=== PATIENT | male | born 1970 | race Caucasian/White ===

== ENCOUNTER 2016-11-29 12:08 | Day surgery (SDC) | payer OTHER ==
[2016-11-22 11:32] VITALS: BMI 42.0
--- NOTE | 2016-11-28 16:33 | HISTORY & PHYSICAL EXAMINATION ---
DATE OF ADMISSION: 11/29/2016 CHIEF COMPLAINT: Right quadriceps tendon rupture. 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 He walked down some stairs on 11/12/2016 when he missed the last step and he felt a huge pop in his right knee. MRI of his knee did show a very high grade partial quadriceps tendon rupture. After failing a brief of conservative treatment, we have elected to proceed with operative fixation. PAST MEDICAL HISTORY: Significant for hypertension, hyperlipidemia, heart palpitations, sleep apnea for which he takes a CPAP machine, seizures, diabetes and obesity. PAST SURGICAL HISTORY: Significant for L5-S1 laminectomy, oral surgeries to his teeth. ALLERGIES: None. MEDICATIONS: Include gabapentin 300 mg daily, vitamin D3 1000 mg daily, methimazole 10 mg daily, metformin 1000 mg twice a day, metoprolol 0 5 mg twice a day, Zoloft 25 mg daily, and simvastatin 20 mg daily. FAMILY HISTORY: Noncontributory. SOCIAL HISTORY: He denies any tobacco, alcohol or IV drug use. He tries to remain active. REVIEW OF SYSTEMS: He complains of right quadrant pain. All other pertinent review of systems is negative. PHYSICAL EXAMINATION: GENERAL: He is awake, alert and oriented x3. He is in no apparent distress. He is very pleasant. HEENT: Pupils equal, round and reactive to light. Extraocular motion intact. Oral mucosa is pink and moist. VITAL SIGNS: Regular rate per radial pulse. LUNGS: Rocio symmetrically bilaterally with no audible breath sounds. ABDOMEN: Soft, nontender, nondistended. MUSCULOSKELETAL: On physical examination of his knee, there are no abrasions, lesions, lacerations of the skin. He is able to stand but he has difficulty sitting. He has difficulty doing any flexion of his knee and a lot of pain right at the distal aspect of the quad tendon. He has weakness with straight leg raise. IMAGING DATA: MRI of the right knee does show a very high grade partial thickness tearing of the right quad. IMPRESSION: Right quadriceps tendon rupture. PLAN: We will proceed with operative fixation of the quad tendon. Postoperatively, he will be placed in a [place] brace and discharged to home on oral pain medications. [facility]
[~2016-11-29] VITALS: Ht 193 cm; Wt 154.5 kg
[~2016-11-29 12:08] MED LIST: ACETAMINOPHEN 500 MG TAB PO SCH; ASPI325T39 PO; CHOL1000 PO; FAMOTIDINE 20 MG TAB PO SCH; GABAPENTIN 300 MG CAP PO SCH; METF-384 PO; METH10TA6 PO; METO50TA16 PO; SERT25TA PO; SIMV20TA5 PO
--- NOTE | 2016-11-29 12:42 | History & Physical Bridge Note ---
H&P Re-Evaluation Bridge Note: I have examined the patient, reviewed the History & Physical and in the interval since the performance of the History & Physical I have noted the following changes of clinical significance: No changes noted
[2016-11-29 12:57] VITALS: BP 134/97; PULSE 62; TEMP 36.5; O2SAT 95; Ht 193 cm; Wt 154.5 kg
[2016-11-29] MEDS ORDERED: LACTATED RINGER'S 1000ML IV SCH (13:45)
[2016-11-29] MEDS ORDERED: CEFAZOLIN 3000 MG/65 ML D5W 65 ML IV SCH (13:45)
[2016-11-29] MEDS ORDERED: ONDANSETRON INJ 2 MG/ML 2 ML VIAL ONE ×2 (13:49→17:00)
[2016-11-29] MEDS ORDERED: LIDOCAINE HCL 2% 2 ML VIAL (20MG/ML) ONE ×2 (13:49→14:43)
[2016-11-29] MEDS ORDERED: FENTANYL CITRATE INJ 50 MCG/1 ML 2 ML VIAL ONE ×2 (13:49→14:44)
[2016-11-29] MEDS ORDERED: MIDAZOLAM HCL 1 MG/ML 2ML VIAL ONE ×3 (13:49→14:35)
[2016-11-29] MEDS ORDERED: DEXAMETHASONE SOD INJ 4 MG/ML VIAL ONE (13:49)
[2016-11-29] MEDS ORDERED: PROPOFOL IV EMULSION 10 MG/ML 20 ML VIAL IV ONE ×2 (13:49→14:43)
[2016-11-29] MEDS ORDERED: LACTATED RINGER'S 1000ML 1,000 ML IV PRN (14:11)
[2016-11-29] MEDS ORDERED: ONDANSETRON INJ 2 MG/ML 2 ML VIAL IV PRN ×2 (14:15→17:15)
[2016-11-29] MEDS ORDERED: FENTANYL CITRATE INJ 50 MCG/1 ML 2 ML VIAL IV PRN (14:15)
[2016-11-29] MEDS ORDERED: ROCURONIUM BROMIDE 10 MG/ML 5 ML VIAL ONE ×2 (14:44→17:00)
[2016-11-29] MEDS ORDERED: BACITRACIN 50,000 UNITS IR ONE (16:41)
[2016-11-29] MEDS ORDERED: NEOSTIGMINE METHYLSULFATE 5 MG/5 ML SYR ONE (17:00)
[2016-11-29] MEDS ORDERED: GLYCOPYRROLATE INJ 0.2 MG/ML VIAL ONE (17:00)
--- NOTE | 2016-11-29 17:05 | [facility] Post Operative Brief Note ---
Immediate Operative Summary Operative Date Nov 29, 2016. Pre-Operative Diagnosis Right Quadricep Tendon Rupture Post-Operative Diagnosis Right Quadricep Tendon Rupture Procedure(s) Performed Right Quadriceps Repair Surgeon Dr. Bloom [employer] Records Clerk Surgeon(s) Herberth Menezes PA-C Estimated Blood Loss 5 mL Findings as above Specimens None Complication(s) None Disposition Recovery Room / PACU
[2016-11-29] MEDS ORDERED: OXYC-57 PO (17:11)
[2016-11-29] MEDS ORDERED: SODIUM CHLORIDE 0.9% 1000ML 1,000 ML IV SCH (17:14)
--- NOTE | 2016-11-29 17:14 | Discharge Instructions ---
Discharge Instructions Admission Reason for Admission: Discharge Discharge Diagnosis / Problem: SAME ABOVE Discharge Goals Goal(s): Decrease discomfort, Improve function Activity Recommendations Activity Limitations: as noted below Exercise/Sports Limitations: until after follow-up appointment May Resume Sexual Activity: after follow-up appointment Shower/Bathe: may shower/bathe in 3 days Weightbearing Status: Right weightbearing ( LONG IN THE LOCKED POSTION IN THE IMOBILIZER ) . Instructions / Follow-Up Instructions / Follow-Up MEDICATIONS: * Resume previous medications unless instructed otherwise by your surgeon. * Always take pain medication on a full stomach or with food to avoid upset stomach. * Do not drink alcohol or drive while taking narcotics. * Ibuprofen or Tylenol may be taken if narcotic not needed. SPECIAL CARE INSTRUCTIONS: __ None _X_ Keep extremity elevated and iced x 48 hours; apply ice 20-30 minutes 8-10 times/day. May remove at night. __ Sling __24 hrs/day __ Remove at night __ Shoulder Immobilizer __ 24 hrs/day __ Remove at night _X_ Dressing __ Maintain until seen in office, may shower with plastic over site _X_ Remove dressings in 24-48 hours and then may shower _X_ Cover incisions with band-aids after showering __ Do not remove steri-strips MUST WEAR THE IMOBILIZER AT ALL TIMES OTHER THAN SHOWERING. IF IT IS REMOVED YOU MAY NOT PUT WEIGHT ON LEG IT IS TO BE LOCKED IN FULL EXTENSION WHEN WALKING MAY BE UNLOCKED WHILE SITTING TO 30 DEGREES OF BEND. Call physician if chills or temperature rises above 102 degrees or pain unrelieved by prescribed pain medications at . . Current Hospital Diet Patient's current hospital diet: Discharge Diet Recommended Diet: Regular Diet Fluid Restriction: None Procedures Procedures Performed: Right Quadriceps Repair Pending Studies Studies pending at discharge: no Medical Emergencies . Who to Call and When: Medical Emergencies: If at any time you feel your situation is an emergency, please call 911 immediately. . Non-Emergent Contact Non-Emergency issues call your: Primary Care Provider Call Non-Emergent contact if: you have a fever, temperature is above 101.5 . "Provider Documentation" section prepared by Herberth Menezes. VTE Core Measure Inpt VTE Proph given/why not?: SCD's
[2016-11-29] MEDS ORDERED: OXYCODONE/ACETAMINOPHEN 5-325 TAB PO PRN ×2 (17:15)
--- NOTE | 2016-11-29 17:56 | Anesthesiology Progress Note ---
Anesthesia Post Op Note Date & Time Nov 29, 2016 at 17:56 Vital Signs Pain Intensity: 0 Vital Signs Past 12 Hours Date Time Temp Pulse Resp B/P Pulse Ox O2 Delivery O2 Flow Rate FiO2 11/29/16 17:45 67 18 143/85 96 Nasal Cannula 2 11/29/16 17:35 36.8 71 16 147/88 93 Nasal Cannula 2 11/29/16 17:25 67 18 154/87 100 Mask 10 11/29/16 17:15 68 14 154/89 100 Mask 10 11/29/16 17:05 36.0 70 18 149/64 100 Mask 10 11/29/16 12:57 36.5 62 18 134/97 95 Room Air Notes Mental Status: alert / awake / arousable, participated in evaluation Pt Amnestic to Procedure: Yes Nausea / Vomiting: adequately controlled Pain: adequately controlled Airway Patency, RR, SpO2: stable & adequate BP & HR: stable & adequate Hydration State: stable & adequate Anesthetic Complications: no major complications apparent
[2016-11-29 18:05] VITALS: BP 126/71; PULSE 73; TEMP 37; O2SAT 97
[2016-11-29 18:35] VITALS: BP 129/71; PULSE 71; O2SAT 96
--- NOTE | 2016-11-29 18:37 | OPERATIVE REPORT ---
DATE OF OPERATION: 11/29/2016 PREOPERATIVE DIAGNOSIS: Right distal quadriceps tendon rupture. POSTOPERATIVE DIAGNOSIS: Same. PROCEDURE: Open right distal quadriceps tenodesis. SURGEON: Dr. Davide Bloom. PUBLIC ADDRESS ANNOUNCER: Osman Menezes PA-C, whose assistance was necessary for positioning of the leg and helping with retraction. ANESTHESIA: General. COMPLICATIONS: None. CONDITION: Stable to PACU. INDICATIONS: Sanjeev is a pleasant 46-year-old male who stepped off a stair awkwardly and heard a pop in his right quadriceps tendon a couple weeks ago. MRI showed a distal quadriceps tendon rupture. He elected to undergo quadriceps tendon repair. On 11/29/2016 he arrived at [facility] for the above procedure. He was seen in the preoperative holding area and the operative extremity was identified and signed. He was then given a preoperative antibiotic, taken back to the operating room, laid on the table in supine position and put under general anesthesia. The right leg was then prepped and draped in sterile fashion. Time-out was done and the patient and operative extremity was properly identified. A longitudinal incision was made directly over the distal quadriceps tendon. Dissection was taken down through the fascia and the quadriceps was visualized. The anterior aspect of the quadriceps looked okay, but when it was opened up off the patella about 70% of the tendon was torn off the articular side of the patella. The tendon was whipstitched with a Krackow locking sutures with 2 fiber tapes. The tails of the FiberTapes were brought down to 2 knotless SwiveLock suture anchors. This gave an excellent repair of the bulk of the tendon. A single 4.75 mm BioComposite corkscrew anchor was placed centrally and the sutures were passed through the center of the tendon and tied to hold it down centrally. The knee was then flexed about 90 degrees before there was a lot of tension on the repair. The retinaculum was not torn and did not need to be repaired. The knee was then irrigated and closed with 3-0 Vicryl and a 3-0 V-Loc suture. A Prineo dressing was placed. He was then placed in a soft dressing and a [place] brace was then extubated, transferred to a [facility] and taken to the postanesthesia care unit in stable condition. He tolerated the procedure well. I attest to the content of the Intraoperative Record and any orders documented therein. Any exceptio ns are noted below.
[2016-11-29 19:10] VITALS: BP 134/71; PULSE 64; O2SAT 94
[2016-11-29] MEDS ORDERED: KETOROLAC TROMETHAMINE 30 MG/ML VIAL ONE (19:35)
[2016-11-29] MEDS ORDERED: NURSING VERBAL MED ORDER ONE (19:40)
== END 2016-11-29 20:05 | disposition home or self-care (01) ==
LOC: C.ACU 12:08
PROVIDERS: ATTEND Orthopaedic Surgery
DX: S76.111A Strain of right quadriceps muscle, fascia and tendon, initial encounter (principal); W18.43XA Slipping, tripping and stumbling without falling due to stepping from one level to another, initial encounter; Y92.89 Other specified places as the place of occurrence of the external cause; Y99.0 Civilian activity done for income or pay; G47.30 Sleep apnea, unspecified; I10 Essential (primary) hypertension; E11.9 Type 2 diabetes mellitus without complications; E66.01 Morbid (severe) obesity due to excess calories; Z79.899 Other long term (current) drug therapy

== ENCOUNTER → 2017-02-27 | Outpatient (CLI) | payer OTHER ==
[~2017-02-27] MED LIST changes: -ACETAMINOPHEN 500 MG TAB PO SCH; -FAMOTIDINE 20 MG TAB PO SCH; -GABAPENTIN 300 MG CAP PO SCH; +GADAVIST IV PRN; +OXYC-57 PO
--- NOTE | 2017-02-27 10:02 | DIAGNOSTIC IMAGING REPORT ---
Brain AND PITUITARY MRI WITH AND WITHOUT CONTRAST HISTORY: HYPERPROLACTINEMIA W/ SELLA TURCICA TECHNIQUE: Multiplanar multisequence MRI of the brain was performed both before and after the intravenous administration of contrast. COMPARISON STUDY: None. FINDINGS: There are no areas of restricted diffusion to suggest acute infarction. The midline structures are intact. The paranasal sinuses are clear. Near complete opacification the left mastoid air cells and partial opacification of the right mastoid air cells. The ventricles and sulci are within normal limits for age. There is no mass, hematoma, midline shift. The major vascular flow-voids at the skull base are well maintained. Postcontrast sequences show no areas of abnormal enhancement. The pituitary gland is normal in size and demonstrates homogeneous enhancement. No suprasellar masses. The pituitary stalk is midline. IMPRESSION: 1. No acute intracranial abnormality. 2. Bilateral mastoid effusions. 3. Normal pituitary gland. Electronically signed by: Mark Ordaz M.D. 02/27/2017 10:00 AM Dictated Date/Time: 02/27/2017 9:41 AM
== END | disposition home or self-care (01) ==
LOC: C.MRI 02-14 12:25
PROVIDERS: ATTEND Internal Medicine Endocrinology, Diabetes & Metabolism
DX: E22.1 Hyperprolactinemia (principal)

== ENCOUNTER → 2017-09-03 | Outpatient (CLI) | payer OTHER ==
[~2017-09-03] MED LIST changes: -GADAVIST IV PRN; -OXYC-57 PO
[2017-09-03 12:39] LABS: PROLACTIN 23.71 ng/mL
[2017-09-03 13:02] LABS: THYROID STIMULATING HORMONE 0.505 uIu/ml (0.300-4.500)
== END | disposition home or self-care (01) ==
LOC: C.LAB1850 09:59
PROVIDERS: ATTEND Physician Assistant
DX: E05.90 Thyrotoxicosis, unspecified without thyrotoxic crisis or storm (principal); E22.1 Hyperprolactinemia

== ENCOUNTER 2021-03-07 16:07 | Inpatient (IN) ==
[2021-03-07] MEDS ORDERED: dexAMETHasone**PF** 10 MG/ML VIAL PO ONE (16:44)
[2021-03-07] MEDS ORDERED: SODIUM CHLORIDE 0.9% 1000ML 1,000 ML IV ONE (16:44)
[2021-03-07] MEDS ORDERED: ONDANSETRON INJ 2 MG/ML 2 ML VIAL IV STA (16:44)
[2021-03-07] MEDS ORDERED: ACETAMINOPHEN 1,000 MG/100 ML VIAL IV STA (16:44)
[2021-03-07 17:04] LABS: Basophils # (auto) 0.01 K/uL (0-0.2); Basophils % (auto) 0.1 %; Eosinophils # (auto) 0.01 K/uL (0-0.5); Eosinophils % (auto) 0.1 %; Hematocrit (blood only) 37.1 % (42-52); Hemoglobin 13.5 g/dL (14.0-18.0); Immature Granulocytes % (auto) 1.4 %; Lymphocytes # (auto) 1.18 K/uL (1.2-3.4); Mean Corpuscular Hemoglobin 29.2 pg (25-34); Mean Corpuscular Hgb Conc 36.4 g/dL (32-36); Mean Corpuscular Volume 80.3 fL (80-100); Mean Platelet Volume 9.7 fL (7.4-10.4); Monocytes # (auto) 0.93 K/uL (0.11-0.59); Monocytes % (auto) 12.6 %; Neutrophils # (auto) 5.13 K/uL (1.4-6.5); Neutrophils % (auto) 69.8 %; Platelet Count 280 K/uL (130-400); RDW Standard Deviation 37.9 fL (36.4-46.3); Red Blood Count 4.62 M/uL (4.7-6.1); White Blood Count 7.36 K/uL (4.8-10.8)
[2021-03-07 17:11] LABS: Alanine Aminotransferase 44 U/L (12-78); Albumin Level 2.8 gm/dl (3.4-5.0); Aspartate Aminotransferase 37 U/L (15-37); BUN Creatinine Ratio 15.5 (10-20); Blood Urea Nitrogen 12 mg/dl (7-18); Calcium 8.8 mg/dl (8.5-10.1); Carbon Dioxide 24 mmol/L (21-32); Chloride 92 mmol/L (98-107); Creatinine Clr Calc Pharmacy 187.6 ml/min; Est GFR (African American) 124.7; Est GFR (Non-African American) 107.6; Glucose 292 mg/dl (70-99); Magnesium 1.9 mg/dl (1.8-2.4); Potassium 3.8 mmol/L (3.5-5.1); Sodium 128 mmol/L (136-145)
[2021-03-07 17:16] LABS: Albumin Globulin Ratio 0.6 (0.9-2); Alkaline Phosphatase 87 U/L (45-117); Bilirubin,Total 0.8 mg/dl (0.2-1); Globulin 4.4 gm/dl (2.5-4.0); Total Protein 7.2 gm/dl (6.4-8.2); Troponin I < 0.015 ng/ml (0-0.045)
[2021-03-07 17:19] LABS: Partial Thromboplastin Ratio 0.9; Prothrombin Time 10.4 Seconds (9.0-12.0)
--- NOTE | 2021-03-07 17:29 | Emergency Department Note ---
History of Present Illness General Chief Complaint: Shortness of Breath/Dyspnea Stated Complaint: SOB, COVID + Time Seen by Provider: 03/07/21 16:40 History of Present Illness Provider Complaint: shortness of breath and pain with inspiration Onset (ago): week(s) (1) Severity: moderate Consistency/Duration: + intermittent Exacerbated By: + exertion, + movement, + coughing and + inspiration Context: no occurred during exertion, no choking/aspiration, no medication noncompliance, no allergen exposure, no recent travel and no smoke/fume exposure Associated symptoms: + pain with inspiration, + fever and + cough; no chest pain, no wheezing, no nausea/vomiting, no abdominal pain and no rash Treatment prior to arrival: oxygen HPI Narrative: Patient tested positive for COVID-19 on February 28, 2021. Home Medications Medication Instructions Recorded Confirmed Type escitalopram oxalate 20 mg PO HS 02/25/20 02/25/20 History methimazole 15 mg PO HS 02/25/20 02/25/20 History metoprolol tartrate 50 mg PO BID 02/25/20 02/25/20 History simvastatin 20 mg PO HS 02/25/20 02/25/20 History sitagliptin [Januvia] 100 mg PO QAM 02/25/20 02/25/20 History semaglutide [Ozempic] 0.25 mg SUBCUT WK 03/07/21 03/07/21 History Allergies Allergy/AdvReac Type Severity Reaction Status Date / Time testosterone AdvReac Severe "messes" Unverified 02/25/20 13:40 with AFIB Past Med/Surg History Medical History (Updated 03/07/21 @ 20:09 by Finn Bowens) COVID-19 No pertinent family history Paroxysmal atrial fibrillation Surgical History (Updated 03/07/21 @ 17:25 by Finn Bowens) No pertinent past surgical history Social History Smoking Status: Never smoker Preferred Language: Georgian Feels Safe at Home: Yes Review of Systems A total of 10 systems reviewed and were otherwise negative Physical Exam Vital Signs: Vital Signs - 24 hr 03/07/21 16:10 03/07/21 16:30 03/07/21 16:54 Temperature 38.6 C H Temperature Source Oral Pulse Rate 90 88 Pulse Rate from Sp O2 Sensor 89 87 Respiratory Rate 22 21 Respiratory Effort / Characteristics Non-Labored Sponta neous Non-Labored Sponta neous Respiratory Depth Normal Respiratory Patter n Regular Blood Pressure 177/88 H 159/89 H Blood Pressure Jie n 117 112 Pulse Oximetry 93 94 94 Oxygen Delivery Me thod Nasal Cannula Nasal Cannula Oxygen Flow Rate 3 3 Sepsis Recent Feve r Within 48 Hours No Sepsis New/Unexpla ined Change in Men mahnaz Status No Sepsis Action Take n by Nursing No Action Required 03/07/21 16:55 03/07/21 17:00 03/07/21 17:49 Temperature Temperature Source Pulse Rate 88 Pulse Rate from Sp O2 Sensor 89 Respiratory Rate 24 Respiratory Effort / Characteristics Non-Labored Sponta neous Respiratory Depth Respiratory Patter n Blood Pressure 168/76 H Blood Pressure Jie n 106 Pulse Oximetry 94 94 94 Oxygen Delivery Me thod Nasal Cannula Nasal Cannula Oxygen Flow Rate Sepsis Recent Feve r Within 48 Hours Sepsis New/Unexpla ined Change in Men mahnaz Status Sepsis Action Take n by Nursing 03/07/21 18:00 03/07/21 18:30 03/07/21 19:00 Temperature Temperature Source Pulse Rate Pulse Rate from Sp O2 Sensor Respiratory Rate Respiratory Effort / Characteristics Non-Labored Sponta neous Non-Labored Sponta neous Respiratory Depth Respiratory Patter n Blood Pressure Blood Pressure Jie n Pulse Oximetry 93 Oxygen Delivery Me thod Nasal Cannula Oxygen Flow Rate Sepsis Recent Feve r Within 48 Hours Sepsis New/Unexpla ined Change in Men mahnaz Status Sepsis Action Take n by Nursing 03/07/21 19:06 Temperature Temperature Source Pulse Rate 79 Pulse Rate from Sp O2 Sensor Respiratory Rate 22 Respiratory Effort / Characteristics Respiratory Depth Respiratory Patter n Blood Pressure 137/75 Blood Pressure Jie n 95 Pulse Oximetry 94 Oxygen Delivery Me thod Nasal Cannula Oxygen Flow Rate 3 Sepsis Recent Feve r Within 48 Hours Sepsis New/Unexpla ined Change in Men mahnaz Status Sepsis Action Take n by Nursing Physical Exam: Physical Exam GENERAL: He is oriented to person, place, and time. He appears well-developed and well-nourished. He does not appear distressed. HENT: Exam performed. - Head: Normocephalic and atraumatic. - Right Ear: External ear normal. No mastoid tenderness. - Left Ear: External ear normal. No mastoid tenderness. - Mouth/Throat: The oropharynx is clear and moist. No trismus in the jaw. No dental abscesses or uvula swelling. No oropharyngeal exudate or tonsillar abscesses. EYES: Conjunctivae and EOM are normal. Pupils are equal, round, and reactive to light. Right eye exhibits no discharge. Left eye exhibits no discharge. No scleral icterus. NECK: Normal range of motion. Neck supple. No JVD present. No spinous process tenderness present. No carotid bruit present. No rigidity. No tracheal deviation and normal range of motion present. No Brudzinski's sign and no Kernig's sign noted. CV: Normal rate, regular rhythm, normal heart sounds and intact distal pulses. There is no peripheral edema. Palpable radial pulses bue. PULM/CHEST: Rhonchi bilaterally - Chest Wall: He exhibits no tenderness. ABD: The abdomen is soft. Bowel sounds are normal. He has no distension. No mass is present. There is no tenderness. There is no rebound, no guarding, no Rosario's sign and no tenderness at McBurney's point. Rovsig negative. MUSC/SKEL: Normal range of motion. There is no peripheral edema, tenderness or deformity. LYMPH: No cervical adenopathy. NEURO: He is alert and oriented to person, place, and time. He has normal strength. No cranial nerve deficit or sensory deficit. Coordination and gait normal. GCS eye subscore is 4. GCS verbal subscore is 5. GCS motor subscore is 6. Cerebellar tests wnl. SKIN: Skin is warm and dry. He is not diaphoretic. PSYCH: He has a normal mood and affect. Behavior is normal. Judgment and thought content normal. Course Course 1640: The patient was evaluated in room B2. A complete history and physical exam was performed Cardiac monitoring: An order was placed for continuous cardiac monitoring. The monitor shows a rate of 90 with sinus rhythm Patient was seen in full airborne precautions. Patient was seen in N95's, glove s, gowns, face shield by myself and staff. Patient was found to have a oxygen saturation of 88% on room air. Supplemental nasal cannula oxygen was applied and improved the patient's oxygen saturation. Given the patient's recent positive COVID-19 test and his hypoxia patient was treated with Decadron 6 mg IV push. 2003: Vital signs stable. Labs show a hyponatremia of 128. Otherwise within normal limits. CT of the chest shows multifocal groundglass opacities bilaterally no PE. Patient will be admitted to the [facility] team Dr. Perrin has been notified. Administered Medications Discontinued Medications Dexamethasone Sodium Phosphate (DexamethasonePf 10 Mg/Ml Vial) 6 mg PO NOW ONE Stop: 03/07/21 16:45 Last Admin: 03/07/21 16:58 Dose: 6 mg Documented by: [id number] Sodium Chloride (Nss 1000ml) 1,000 mls @ 999 mls/hr IV .Q1H1M ONE Stop: 03/07/21 17:44 Last Infusion: 03/07/21 18:00 Dose: 0 mls/hr Documented by: [id number] Admin: 03/07/21 16:59 Dose: 999 mls/hr Documented by: [id number] Acetaminophen (Ofirmev) 1,000 mg in 100 mls @ 400 mls/hr IV NOW STA Stop: 03/07/21 16:58 Last Infusion: 03/07/21 17:13 Dose: 0 mls/hr Documented by: [id number] Admin: 03/07/21 16:58 Dose: 400 mls/hr Documented by: [id number] Ioversol (Optiray 320 125ml) 119 ml IV ONCE ONE Stop: 03/07/21 19:26 Last Admin: 03/07/21 19:25 Dose: 119 ml Documented by: [id number] Ondansetron HCl (Ondansetron Inj 2 Mg/Ml 2 Ml Vial) 4 mg IV NOW STA Stop: 03/07/21 16:45 Last Admin: 03/07/21 16:58 Dose: 4 mg Documented by: [id number] Medical Decision Making Laboratory Data Result diagrams: 03/07/21 16:15 03/07/21 16:15 Lab Results 03/07/21 03/07/21 03/07/21 Range/Units 16:15 16:15 16:15 WBC 7.36 (4.8-10.8) K/uL RBC 4.62 L (4.7-6.1) M/uL Hgb 13.5 L (14.0-18.0) g/dL Hct 37.1 L (42-52) % MCV 80.3 (80-100) fL MCH 29.2 (25-34) pg MCHC 36.4 H (32-36) g/dL RDW Std Deviation 37.9 (36.4-46.3) fL RDW Coeff of Francheska 13.0 (11.5-14.5) % Plt Count 280 (130-400) K/uL MPV 9.7 (7.4-10.4) fL Immature Gran % (Auto) 1.4 % Neut % (Auto) 69.8 % Lymph % (Auto) 16.0 % [place] % (Auto) 12.6 % Eos % (Auto) 0.1 % Baso % (Auto) 0.1 % Neut # (Auto) 5.13 (1.4-6.5) K/uL Lymph # (Auto) 1.18 L (1.2-3.4) K/uL [place] # (Auto) 0.93 H (0.11-0.59) K/uL Eos # (Auto) 0.01 (0-0.5) K/uL Baso # (Auto) 0.01 (0-0.2) K/uL Immature Gran # (Auto) 0.10 H (0.00-0.02) K/uL PT 10.4 (9.0-12.0) Seconds INR 1.0 (0.9-1.1) APTT 24.0 (21.0-31.0) Seconds PTT Ratio 0.9 VBG pH (7.36-7.41) VBG pCO2 (38-50) mmHg VBG pO2 mmHg VBG HCO3 mmol/L VBG O2 Saturation % VBG Base Excess mEq/L Barometric Pressure mm/Hg Sodium 128 L (136-145) mmol/L Potassium 3.8 (3.5-5.1) mmol/L Chloride 92 L (98-107) mmol/L Carbon Dioxide 24 (21-32) mmol/L Anion Gap 12.0 H (3-11) BUN 12 (7-18) mg/dl Creatinine 0.74 (0.6-1.4) mg/dl Est Cr Clr Drug Dosing 187.6 ml/min Est GFR ( Amer) 124.7 Est GFR (Non-Af Amer) 107.6 BUN/Creatinine Ratio 15.5 (10-20) Glucose 292 H (70-99) mg/dl Lactate (0.4-2.0) mmol/L Calcium 8.8 (8.5-10.1) mg/dl Magnesium 1.9 (1.8-2.4) mg/dl Total Bilirubin 0.8 (0.2-1) mg/dl AST 37 (15-37) U/L ALT 44 (12-78) U/L Alkaline Phosphatase 87 (45-117) U/L Troponin I < 0.015 (0-0.045) ng/ml Total Protein 7.2 (6.4-8.2) gm/dl Albumin 2.8 L (3.4-5.0) gm/dl Globulin 4.4 H (2.5-4.0) gm/dl Albumin/Globulin Ratio 0.6 L (0.9-2) Procalcitonin (0-0.5) ng/ml Urine Color Urine Appearance (Clear) Urine pH (4.5-7.5) Ur Specific [place] (1.000-1.030) Urine Protein (Negative) Urine Glucose (UA) (Negative) Urine Ketones (Negative) Urine Blood (Negative) Urine Nitrite (Negative) Urine Bilirubin (Negative) Urine Urobilinogen (Negative) Ur Leukocyte Esterase (Negative) Urine WBC (Auto) (0-5) /hpf Urine RBC (Auto) (0-4) /hpf U Hyaline Cast (Auto) (0-5) /lpf U Epithel Cells (Auto) (0-5) /lpf Urine Bacteria (Auto) (Negative) COVID-19 Eval Order SARS-CoV-2 (PCR) (Negative) Influenza Type A (PCR) (Neg) Influenza Type B (PCR) (Neg) RSV (RT-PCR) (Neg) 03/07/21 03/07/21 03/07/21 Range/Units 16:15 16:55 16:55 WBC (4.8-10.8) K/uL RBC (4.7-6.1) M/uL Hgb (14.0-18.0) g/dL Hct (42-52) % MCV (80-100) fL MCH (25-34) pg MCHC (32-36) g/dL RDW Std Deviation (36.4-46.3) fL RDW Coeff of Francheska (11.5-14.5) % Plt Count (130-400) K/uL MPV (7.4-10.4) fL Immature Gran % (Auto) % Neut % (Auto) % Lymph % (Auto) % [place] % (Auto) % Eos % (Auto) % Baso % (Auto) % Neut # (Auto) (1.4-6.5) K/uL Lymph # (Auto) (1.2-3.4) K/uL [place] # (Auto) (0.11-0.59) K/uL Eos # (Auto) (0-0.5) K/uL Baso # (Auto) (0-0.2) K/uL Immature Gran # (Auto) (0.00-0.02) K/uL PT (9.0-12.0) Seconds INR (0.9-1.1) APTT (21.0-31.0) Seconds PTT Ratio VBG pH (7.36-7.41) VBG pCO2 (38-50) mmHg VBG pO2 mmHg VBG HCO3 mmol/L VBG O2 Saturation % VBG Base Excess mEq/L Barometric Pressure mm/Hg Sodium (136-145) mmol/L Potassium (3.5-5.1) mmol/L Chloride (98-107) mmol/L Carbon Dioxide (21-32) mmol/L Anion Gap (3-11) BUN (7-18) mg/dl Creatinine (0.6-1.4) mg/dl Est Cr Clr Drug Dosing ml/min Est GFR ( Amer) Est GFR (Non-Af Amer) BUN/Creatinine Ratio (10-20) Glucose (70-99) mg/dl Lactate (0.4-2.0) mmol/L Calcium (8.5-10.1) mg/dl Magnesium (1.8-2.4) mg/dl Total Bilirubin (0.2-1) mg/dl AST (15-37) U/L ALT (12-78) U/L Alkaline Phosphatase (45-117) U/L Troponin I (0-0.045) ng/ml Total Protein (6.4-8.2) gm/dl Albumin (3.4-5.0) gm/dl Globulin (2.5-4.0) gm/dl Albumin/Globulin Ratio (0.9-2) Procalcitonin 0.10 (0-0.5) ng/ml Urine Color Urine Appearance (Clear) Urine pH (4.5-7.5) Ur Specific [place] (1.000-1.030) Urine Protein (Negative) Urine Glucose (UA) (Negative) Urine Ketones (Negative) Urine Blood (Negative) Urine Nitrite (Negative) Urine Bilirubin (Negative) Urine Urobilinogen (Negative) Ur Leukocyte Esterase (Negative) Urine WBC (Auto) (0-5) /hpf Urine RBC (Auto) (0-4) /hpf U Hyaline Cast (Auto) (0-5) /lpf U Epithel Cells (Auto) (0-5) /lpf Urine Bacteria (Auto) (Negative) COVID-19 Eval Order CovFluRsv at [facility] SARS-CoV-2 (PCR) POSITIVE A* (Negative) Influenza Type A (PCR) Negative (Neg) Influenza Type B (PCR) Negative (Neg) RSV (RT-PCR) Negative (Neg) 03/07/21 03/07/21 03/07/21 Range/Units 17:18 17:18 19:07 WBC (4.8-10.8) K/uL RBC (4.7-6.1) M/uL Hgb (14.0-18.0) g/dL Hct (42-52) % MCV (80-100) fL MCH (25-34) pg MCHC (32-36) g/dL RDW Std Deviation (36.4-46.3) fL RDW Coeff of Francheska (11.5-14.5) % Plt Count (130-400) K/uL MPV (7.4-10.4) fL Immature Gran % (Auto) % Neut % (Auto) % Lymph % (Auto) % [place] % (Auto) % Eos % (Auto) % Baso % (Auto) % Neut # (Auto) (1.4-6.5) K/uL Lymph # (Auto) (1.2-3.4) K/uL [place] # (Auto) (0.11-0.59) K/uL Eos # (Auto) (0-0.5) K/uL Baso # (Auto) (0-0.2) K/uL Immature Gran # (Auto) (0.00-0.02) K/uL PT (9.0-12.0) Seconds INR (0.9-1.1) APTT (21.0-31.0) Seconds PTT Ratio VBG pH 7.46 H (7.36-7.41) VBG pCO2 35 L (38-50) mmHg VBG pO2 50 mmHg VBG HCO3 24 mmol/L VBG O2 Saturation 86.7 % VBG Base Excess 0.8 mEq/L Barometric Pressure 729.2 mm/Hg Sodium (136-145) mmol/L Potassium (3.5-5.1) mmol/L Chloride (98-107) mmol/L Carbon Dioxide (21-32) mmol/L Anion Gap (3-11) BUN (7-18) mg/dl Creatinine (0.6-1.4) mg/dl Est Cr Clr Drug Dosing ml/min Est GFR ( Amer) Est GFR (Non-Af Amer) BUN/Creatinine Ratio (10-20) Glucose (70-99) mg/dl Lactate 1.0 (0.4-2.0) mmol/L Calcium (8.5-10.1) mg/dl Magnesium (1.8-2.4) mg/dl Total Bilirubin (0.2-1) mg/dl AST (15-37) U/L ALT (12-78) U/L Alkaline Phosphatase (45-117) U/L Troponin I (0-0.045) ng/ml Total Protein (6.4-8.2) gm/dl Albumin (3.4-5.0) gm/dl Globulin (2.5-4.0) gm/dl Albumin/Globulin Ratio (0.9-2) Procalcitonin (0-0.5) ng/ml Urine Color Yellow Urine Appearance Clear (Clear) Urine pH 5.5 (4.5-7.5) Ur Specific [place] 1.026 (1.000-1.030) Urine Protein Trace H (Negative) Urine Glucose (UA) 3+ H (Negative) Urine Ketones 2+ H (Negative) Urine Blood Negative (Negative) Urine Nitrite Negative (Negative) Urine Bilirubin Negative (Negative) Urine Urobilinogen Negative (Negative) Ur Leukocyte Esterase Negative (Negative) Urine WBC (Auto) 1-5 (0-5) /hpf Urine RBC (Auto) 0-4 (0-4) /hpf U Hyaline Cast (Auto) 1-5 (0-5) /lpf U Epithel Cells (Auto) 5-10 H (0-5) /lpf Urine Bacteria (Auto) Negative (Negative) COVID-19 Eval Order SARS-CoV-2 (PCR) (Negative) Influenza Type A (PCR) (Neg) Influenza Type B (PCR) (Neg) RSV (RT-PCR) (Neg) Imaging Data Radiologist's Impression: Chest CTA 03/07/21 16:44 CT ANGIOGRAPHY OF THE CHEST, PULMONARY EMBOLUS PROTOCOL CLINICAL HISTORY: Shortness of breath. Covid. COMPARISON STUDY: Chest radiograph August 10, 2015 and March 07, 2021. TECHNIQUE: Following IV administration of 119 mL of Optiray-320, helical axial images of the chest were obtained utilizing the pulmonary embolus protocol. Maximal intensity projections and sagittal and coronal reformats were viewed on an independent 3D workstation. IV contrast was administered without complication. Automated exposure control was utilized for the study. A dose lowering technique was utilized adhering to the principles of ALARA. CT DOSE: 963.14 mGy.cm FINDINGS: No pulmonary emboli are identified. This exam is mildly compromised by suboptimal vascular opacification. Mild to moderate cardiomegaly is noted. There is no pericardial effusion. No thoracic aortic dissection is noted. There are multiple mildly enlarged mediastinal and bilateral hilar lymph nodes. Index subcarinal lymph node measures 1.3 cm in short axis diameter. Index right hilar node measures 1.4 cm. Subpleural opacities favor atelectasis. There is no pneumothorax or pleural effusion. Multifocal irregular airspace opacities within the lungs are present. Hepatic steatosis is noted. There is probable splenomegaly. IMPRESSION: 1. No pulmonary emboli identified although segmental and subsegmental pulmonary arteries suboptimally assessed on this exam. 2. Moderate multifocal airspace opacities within lungs consistent with viral pneumonia. 3. Enlarged mediastinal and bilateral hilar lymph nodes which are likely reactive. 4. Mild to moderate cardiomegaly. 5. Hepatic steatosis. Mild splenomegaly. ACT 112: Negative or not required by law. Electronically signed by: Simon Swan M.D. 03/07/2021 7:53 PM Chest X-Ray 03/07/21 16:44 XR chest 1V portable CLINICAL HISTORY: Sepsis. COMPARISON STUDY: Chest radiograph September 09, 2015. FINDINGS: Lung volumes are diminished. There is no pneumothorax or pleural effusion. Moderate multifocal bilateral airspace opacities are noted. Cardiac silhouette is accentuated on this exam. IMPRESSION: 1. Moderate bilateral airspace opacities suggestive of an infectious process such as viral pneumonia. 2. Low lung volumes. ACT 112: Negative or not required by law. Electronically signed by: Simon Swan M.D. 03/07/2021 5:34 PM ECG Data Interpretation: EKG at 1612: Sinus rhythm with a rate of 91. WA QRS and QTc intervals within normal limits. No ST elevation or ST depression. [facility] Narrative 1640: The patient was evaluated in room B2. A complete history and physical exam was performed Cardiac monitoring: An order was placed for continuous cardiac monitoring. The monitor shows a rate of 90 with sinus rhythm Patient was seen in full airborne precautions. Patient was seen in N95's, gloves, gowns, face shield by myself and staff. Patient was found to have a oxygen saturation of 88% on room air. Supplemental nasal cannula oxygen was applied and improved the patient's oxygen saturation. Given the patient's recent positive COVID-19 test and his hypoxia patient was treated with Decadron 6 mg IV push. 2003: Vital signs stable. Labs show a hyponatremia of 128. Otherwise within normal limits. CT of the chest shows multifocal groundglass opacities bilaterally no PE. [facility] been notified. Impression & Plan Pneumonia due to 2019 novel coronavirus, Hypoxia, Hyponatremia Critical Care Time Critical Care Time: Yes Total Critical Care Time: 50 I have personally spent greater than 50 minutes of critical care time in the direct management of this patient. This includes bedside care, interpretation of diagnostic studies, and testing, discussion with consultants, patient, and family members, and other required patient management activities. This 50 minutes is in excess of all separately billable procedures. Discharge Plan Visit Data Chief Complaint: Shortness of Breath/Dyspnea Stated Complaint: SOB, COVID + ED Provider: Finn Bowens Discharge Problem: Pneumonia due to 2019 novel coronavirus, Hypoxia, Hyponatremia Patient Disposition: Admitted As Inpatient Forms Stand Alone Forms: [facility], Virtual Emergency Department, Important Visit Information Prescriptions Prescriptions: No Action simvastatin 20 mg tablet 20 mg PO HS RF: 0 metoprolol tartrate 50 mg tablet 50 mg PO BID RF: 0 methimazole 10 mg tablet 15 mg PO HS RF: 0 escitalopram oxalate 20 mg tablet 20 mg PO HS RF: 0 Januvia 100 mg tablet 100 mg PO QAM RF: 0 Ozempic 0.25 mg or 0.5 mg(2 mg/1.5 mL) pen injector 0.25 mg SUBCUT WK RF: 0 Referrals Referrals: Mariann Rosenthal PA-C [Primary Care Provider] -
--- NOTE | 2021-03-07 17:35 | XRay Report ---
XR chest 1V portable CLINICAL HISTORY: Sepsis. COMPARISON STUDY: Chest radiograph September 09, 2015. FINDINGS: Lung volumes are diminished. There is no pneumothorax or pleural effusion. Moderate multifo gayla bilateral airspace opacities are noted. Cardiac silhouette is accentuated on this exam. IMPRESSION: 1. Moderate bilateral airspace opacities suggestive of an infectious process such as viral pneumonia. 2. Low lung volumes. ACT 112: Negative or not required by law. Electronically signed by: Simon Swan M.D. 03/07/2021 5:34 PM
[2021-03-07 17:42] LABS: Base Excess VBG 0.8 mEq/L; Oxygen Saturation VBG 86.7 %; pH VBG 7.46 (7.36-7.41)
[2021-03-07 18:00] LABS: Influenza A virus by PCR Negative (Neg); Influenza B virus by PCR Negative (Neg); RSV by PCR Negative (Neg)
[2021-03-07 18:16] LABS: SARS CoV2 RNA(COVID-19) InHosp POSITIVE (Negative)
[2021-03-07 19:20] LABS: Appearance Urine Clear (Clear); Bacteria Urine Automated Negative (Negative); Bilirubin Urine Negative (Negative); Blood Urine Negative (Negative); Color Urine Yellow; Glucose Urine UA 3+ (Negative); Ketones Urine 2+ (Negative); Leukocyte Esterase Urine Negative (Negative); Nitrite Urine Negative (Negative); Protein Urine Trace (Negative); RBC Urine Automated 0-4 /hpf (0-4); Specific Gravity Urine 1.026 (1.000-1.030); Urobilinogen Urine Negative (Negative); pH Urine 5.5 (4.5-7.5)
[2021-03-07] MEDS ORDERED: OPTIRAY 320 125ml IV ONE (19:25)
--- NOTE | 2021-03-07 19:54 | CT Scan Report ---
CT ANGIOGRAPHY OF THE CHEST, PULMONARY EMBOLUS PROTOCOL CLINICAL HISTORY: Shortness of breath. Covid. COMPARISON STUDY: Chest radiograph August 10, 2015 and March 07, 2021. TECHNIQUE: Following IV administration of 119 mL of Optiray-320, helical axial images of the chest we re obtained utilizing the pulmonary embolus protocol. Maximal intensity projections and sagittal and coronal reformats were viewed on an independent 3D workstation. IV contrast was administered withou t complication. Automated exposure control was utilized for the study. A dose lowering technique wa s utilized adhering to the principles of ALARA. CT DOSE: 963.14 mGy.cm FINDINGS: No pulmonary emboli are identified. This exam is mildly compromised by suboptimal vascular opacification. Mild to moderate cardiomegaly is noted. There is no pericardial effusion. No thoracic aortic dissection is noted. There are multiple mildly enlarged mediastinal and bilateral hilar lymph nodes. Index subcarinal lymph node measures 1.3 cm in short axis diameter. Index right hilar node me asures 1.4 cm. Subpleural opacities favor atelectasis. There is no pneumothorax or pleural effusion. Multifocal irregular airspace opacities within the lungs are present. Hepatic steatosis is noted. The re is probable splenomegaly. IMPRESSION: 1. No pulmonary emboli identified although segmental and subsegmental pulmonary arteries suboptimally assessed on this exam. 2. Moderate multifocal airspace opacities within lungs consistent with viral pneumonia. 3. Enlarged mediastinal and bilateral hilar lymph nodes which are likely reactive. 4. Mild to moderate cardiomegaly. 5. Hepatic steatosis. Mild splenomegaly. ACT 112: Negative or not required by law. Electronically signed by: Simon Swan M.D. 03/07/2021 7:53 PM
[2021-03-07] MEDS ORDERED: NITROGLYCERIN SL 0.4 MG/TAB TAB SL PRN (23:24)
[2021-03-07] MEDS ORDERED: SODIUM CHLORIDE 0.9% 1000ML 1,000 ML IV SCH (23:24)
[2021-03-07] MEDS ORDERED: DEXTROSE 50% 50 ML SYRINGE IV PRN (23:45)
[2021-03-07] MEDS ORDERED: GLUCOSE 10 TABS/TUBE PO PRN (23:45)
[2021-03-07] MEDS ORDERED: GLUCAGON FOR INJ 1 MG VIAL SQ PRN (23:45)
[2021-03-07] MEDS ORDERED: CARBOHYDRATES FOR HYPOGLYCEMIA PO PRN (23:45)
[2021-03-07] MEDS ORDERED: GLUCOSE 40% GEL 15 GM TUBE PO PRN (23:45)
[2021-03-08] MEDS ORDERED: REMDESIVIR 200 MG in SODIUM CHLORIDE 0.9% 210 ML IV ONE
[2021-03-08] MEDS: METOPROLOL TARTRATE 50 MG TAB PO SCH ×3 (00:28→20:10)
--- NOTE | 2021-03-08 01:52 | History and Physical Report ---
DATE OF ADMISSION: 03/07/2021 CHIEF COMPLAINT: Shortness of breath, COVID pneumonia. HISTORY OF PRESENT ILLNESS: This is a 50-year-old male with past medical history significant for type 2 diabetes, hyperthyroidism, hypotestosteronemia, hyperlipidemia, obstructive sleep apnea, atrial fibrillation, hypertension, obesity, osteoarthritis of left knee, history of low back pain, generalized anxiety disorder, chronic fatigue, lives with his , presents with shortness of breath. The patient had COVID symptoms since last Friday and was diagnosed with COVID last . He was having fevers, body aches, shortness of breath, coughing, and some chest pain with cough, poor appetite, some sore throat and he came to the ER and he had a temperature spike of 38.6 and his oxygenation was 89% on room air, requiring 3 liters oxygen. Currently resting comfortably and hemodynamically stable. No nausea, no abdominal pain, somewhat constipated because he is not eating much. ALLERGIES: TESTOSTERONE. PAST MEDICAL HISTORY: As mentioned above. PAST SURGICAL HISTORY: Biopsy of left knee joint lining, wisdom tooth extraction, hemilaminectomy of L5-S1, tonsillectomy. MEDICATIONS: The patient is on Crestor 40 mg p.o. daily, Lexapro 20 mg p.o. at bedtime, methimazole 15 mg p.o. at bedtime, metoprolol 75 mg in the a.m., metoprolol 50 mg in p.m. Ozempic 0.5 mg subcutaneous weekly, Januvia 100 mg p.o. a.m. FAMILY HISTORY: Significant for brother has arthritis; father had prostate cancer, hypertension; daughter has migraines, scoliosis; maternal grandmother has stroke. SOCIAL HISTORY: , quit smoking in 2006, smoked an average of 1 pack a day for 17 years. Alcohol, one beer in a month. No drug use. REVIEW OF SYSTEMS: As per HPI. Rest of the review of systems negative. PHYSICAL EXAMINATION: GENERAL: The patient is obese, not in acute distress. VITAL SIGNS: T-max 38.6, pulse 67, respiratory rate 22, blood pressure 145/74, oxygen 93% on 3 liters. HEENT: Pupils equal, round, and reactive to light. Oral mucosa moist. NECK: No JVD, no neck masses seen. CARDIOVASCULAR: S1, S2 heard. Regular rate and rhythm. No murmur, no gallop. RESPIRATORY SYSTEM: Normal AP diameter. No accessory muscle use. No wheezing, no crackles. ABDOMEN: Soft, bowel sounds present, nontender, no distention. CENTRAL NERVOUS SYSTEM: Cranial nerves II-XII grossly intact. Nonfocal. EXTREMITIES: No edema, no erythema. LABORATORY DATA: WBC 7.3, hemoglobin 13.5, hematocrit 37.1, platelets 280. PT 10.4, INR 1, APTT 24. Venous blood gas, pH of 7.46, pCO2 of 35, pO2 of 50, bicarbonate 24. Sodium 128, potassium 3.8, chloride 92, bicarbonate 24, BUN 12, creatinine 0.7, serum glucose 292. Lactate 1, calcium 8.8, magnesium 1.9, total bilirubin 0.8, AST 37, ALT 44, alkaline phosphatase 87. Troponin I less than 0.015. Procalcitonin 0.1. Urinalysis, +3 glucose, +2 ketones. SARS-CoV-2 PCR positive. Influenza A and B PCR negative. RSV PCR negative. IMAGING DATA: Chest x-ray, moderate bilateral airspace opacities suggestive of infectious process such as viral pneumonia. CTA of the chest, no PE, moderate multifocal airspace opacity within the lung consistent with viral pneumonia, enlarged mediastinal and bilateral hilar lymph nodes which are likely reactive, [id number] cardiomegaly, hepatic steatosis, mild splenomegaly. EKG: Normal sinus rhythm at a rate of 91, no acute ST changes seen. ASSESSMENT AND PLAN: This is a 50-year-old male who presents with COVID pneumonia. 1. COVID pneumonia: Requiring 3 liters oxygen. Meets criteria for remdesivir and Decadron, which will be continued and follow the remdesivir labs. Continue supplemental oxygenation. Closely monitor in the tele floor. Follow the inflammatory markers, D-dimer, ferritin, and also CRP and also follow the troponin levels. 2. History of paroxysmal atrial fibrillation: On metoprolol and supposed to be on aspirin, not on anticoagulation. Follows with cardiology. If any concern, consult cardiology. 3. History of obstructive sleep apnea: On CPAP at bedtime. 4. History of hypertension: Continue his metoprolol. We will monitor the blood pressure. 5. Hyperlipidemia: Continue Crestor. 6. Generalized anxiety disorder: On Lexapro. 7. History of hyperthyroidism: On methimazole. 8. Diabetes: We will hold his home medications. Place him on insulin sliding scale. Follow the blood sugars while getting Decadron. 9. Deep venous thrombosis prophylaxis: Lovenox. DISPOSITION: Closely monitor in the tele floor. Level 1 full code. Expect to discharge home and follow with family doctor. JESUS
[2021-03-08] MEDS: BENZONATATE 100 MG CAPSULE PO PRN ×2 (06:22→20:08)
[2021-03-08] MEDS: ROSUVASTATIN CALCIUM 20 MG TAB PO SCH (08:01)
[2021-03-08] MEDS: ASPIRIN 81 MG ECTAB PO SCH (08:02)
[2021-03-08 08:31] LABS: D Dimer 480 ug/L FEU (0-500)
[2021-03-08 08:42] LABS: Hematocrit (blood only) 38.8 % (42-52); Hemoglobin 13.6 g/dL (14.0-18.0); Mean Corpuscular Hemoglobin 28.6 pg (25-34); Mean Corpuscular Hgb Conc 35.1 g/dL (32-36); Mean Corpuscular Volume 81.5 fL (80-100); Mean Platelet Volume 9.8 fL (7.4-10.4); Platelet Count 318 K/uL (130-400); RDW Coefficient of Variation 13.1 % (11.5-14.5); RDW Standard Deviation 39.6 fL (36.4-46.3); Red Blood Count 4.76 M/uL (4.7-6.1); White Blood Count 10.24 K/uL (4.8-10.8)
[2021-03-08 09:00] LABS: Alanine Aminotransferase 44 U/L (12-78); Albumin Level 2.7 gm/dl (3.4-5.0); Aspartate Aminotransferase 33 U/L (15-37); BUN Creatinine Ratio 21.3 (10-20); Bilirubin Direct < 0.1 mg/dl (0-0.2); Blood Urea Nitrogen 15 mg/dl (7-18); C Reactive Protein 5.63 mg/dl (0-0.29); Calcium 8.6 mg/dl (8.5-10.1); Carbon Dioxide 22 mmol/L (21-32); Chloride 97 mmol/L (98-107); Creatinine Clr Calc Pharmacy 198.1 ml/min; Est GFR (African American) 127.5; Glucose 281 mg/dl (70-99); Magnesium 2.2 mg/dl (1.8-2.4); Potassium 4.2 mmol/L (3.5-5.1); Sodium 131 mmol/L (136-145)
[2021-03-08] MEDS ORDERED: guaiFENesin 600 MG TABCR PO SCH (09:00)
[2021-03-08] MEDS ORDERED: ENOXAPARIN INJ 40 MG/0.4 ML SYR SQ SCH (09:00)
[2021-03-08 09:03] LABS: Alkaline Phosphatase 88 U/L (45-117); Bilirubin,Total 0.6 mg/dl (0.2-1); Ferritin 1232.3 ng/ml (8-388); Total Protein 6.9 gm/dl (6.4-8.2); Troponin I < 0.015 ng/ml (0-0.045)
[2021-03-08 09:18] LABS: Basophils # (auto) 0.01 K/uL (0-0.2); Basophils % (auto) 0.1 %; Immature Granulocytes # (auto) 0.09 K/uL (0.00-0.02); Immature Granulocytes % (auto) 0.9 %; Lymphocytes # (auto) 1.05 K/uL (1.2-3.4); Lymphocytes % (auto) 10.3 %; Monocytes # (auto) 0.71 K/uL (0.11-0.59); Monocytes % (auto) 6.9 %; Neutrophils # (auto) 8.38 K/uL (1.4-6.5); Neutrophils % (auto) 81.8 %
[2021-03-08] MEDS: INSULIN ASPART 100 UNITS/ML 3 ML PEN SC SCH ×4 (09:36→21:00)
[2021-03-08 09:39] LABS: Estimated Average Glucose 315 mg/dl; Hemoglobin A1C 12.6 % (4.5-5.6)
[2021-03-08] MEDS ORDERED: PHARMACY GLYCEMIC MGMT CONSULT PRN (09:43)
[2021-03-08] MEDS ORDERED: INSULIN HUMAN NPH SC ONE (10:15)
[2021-03-08] MEDS ORDERED: INSULIN HUMAN REGULAR PER UNIT 10 UNITS in SYRINGE 9.9 ML IV ONE ×2 (10:30→21:15)
[2021-03-08] MEDS ORDERED: FUROSEMIDE 20 MG in SYRINGE 0 ML IV ONE (12:10)
[2021-03-08] MEDS ORDERED: FUROSEMIDE 40 MG/4 ML VIAL IV ONE (12:10)
--- NOTE | 2021-03-08 12:11 | Hospitalist Progress Note ---
Date of Service March 08, 2021 Assessment & Plan (1) Pneumonia due to 2019 novel coronavirus: (2) Hypoxia: Acute hypoxic respiratory failure secondary to COVID-19 pneumonia Continue dexamethasone and remdesivir Monitor inflammatory markers and LFTs Considering mild crackles today, discontinue IV fluids started on admission and give iv lasix one dose Wean oxygen as tolerated Incentive spirometry and flutter Supportive care with antitussives as needed (3) Paroxysmal atrial fibrillation: Patient has history of proximal A. fib. Has been following with cardiology. Had declined anticoagulation in the past and prefers only aspirin. We will continue aspirin for now and discuss anticoagulation in the future again with the patient. Currently in sinus rhythm (4) ISAC (obstructive sleep apnea): Per clinical administrator, patient has severe ISAC Continue CPAP at bedtime (5) Hyperthyroidism: Continue methimazole (6) Diabetes: Home antidiabetic regimen on hold. Patient diabetes is poorly controlled A1c is 12.6 Pharmacy on board for glycemic management while inpatient especially on dexamethasone therapy. Provided basic diabetes education We will get real estate loan officer and may need insulin when patient is stable for discharge Continue insulin per protocol for now (7) DVT prophylaxis: Lovenox subcu Admission and Anticipated Discharge Date Admission Date: March 07, 2021 Subjective Patient seen and examined Reports persistent cough associated with chest pain, productive Reports shortness of breath with mild exertion Reports congestion and sore throat Denies headache and dizziness at this time Reports chills and generalized weakness Denies palpitation Denies nausea, vomiting, abdominal pain diarrhea constipation Reported episodes of urinary incontinence overnight during coughing bout. Denies any dysuria, unusual frequency or urgency. States that he usually has frequency at baseline. Denies hematuria No anxiety or depression No skin rash or wounds Physical Exam Constitutional: + well hydrated and + obese; no acute distress Eyes: PERRL, conjunctivae normal, anicteric sclerae ENMT: external ear and nose normal, oropharynx normal Respiratory: normal respiratory effort; no respiratory distress Nasal cannula in place on 5 L/min of oxygen, mild basilar crackles, no wheeze Cardiovascular: Rate/Rhythm: regular rate and regular rhythm S1-S2. No pedal edema Gastrointestinal (Abdomen): normal bowel sounds, soft, nontender, no hepatosplenomegaly Musculoskeletal: no cyanosis or clubbing, extremities motor strength 5/5 Neurologic: PERRL, EOMI, accommodation nl, no face palsy, no dysarthria Psychiatric: A+Ox3, euthymic affect Genitourinary: no CVA tenderness Results & Data Results & Data ([facility]) Vital Signs (Past 12 Hours) Vital Signs Temp Pulse Pulse Resp BP Pulse Ox 03/08/21 07:55 87 20 142/85 H 95 03/08/21 07:28 74 03/08/21 03:42 75 18 90 03/08/21 03:39 37.0 C 70 19 157/81 H 95 Laboratory Results Laboratory Results - last 24 hr 03/07/21 03/07/21 03/07/21 16:15 16:15 16:15 WBC 7.36 RBC 4.62 L Hgb 13.5 L Hct 37.1 L MCV 80.3 MCH 29.2 MCHC 36.4 H RDW Std Deviation 37.9 RDW Coeff of Francheska 13.0 Plt Count 280 MPV 9.7 Immature Gran % (Auto) 1.4 Neut % (Auto) 69.8 Lymph % (Auto) 16.0 [place] % (Auto) 12.6 Eos % (Auto) 0.1 Baso % (Auto) 0.1 Neut # (Auto) 5.13 Lymph # (Auto) 1.18 L [place] # (Auto) 0.93 H Eos # (Auto) 0.01 Baso # (Auto) 0.01 Immature Gran # (Auto) 0.10 H PT 10.4 INR 1.0 APTT 24.0 PTT Ratio 0.9 D-Dimer VBG pH VBG pCO2 VBG pO2 VBG HCO3 VBG O2 Saturation VBG Base Excess Barometric Pressure Sodium 128 L Potassium 3.8 Chloride 92 L Carbon Dioxide 24 Anion Gap 12.0 H BUN 12 Creatinine 0.74 Est Cr Clr Drug Dosing 187.6 Est GFR ( Amer) 124.7 Est GFR (Non-Af Amer) 107.6 BUN/Creatinine Ratio 15.5 Glucose 292 H POC Glucose Estimat Average Glucose Hemoglobin A1c Lactate Calcium 8.8 Magnesium 1.9 Ferritin Total Bilirubin 0.8 Direct Bilirubin AST 37 ALT 44 Alkaline Phosphatase 87 Troponin I < 0.015 C-Reactive Protein Total Protein 7.2 Albumin 2.8 L Globulin 4.4 H Albumin/Globulin Ratio 0.6 L Procalcitonin Urine Color Urine Appearance Urine pH Ur Specific [place] Urine Protein Urine Glucose (UA) Urine Ketones Urine Blood Urine Nitrite Urine Bilirubin Urine Urobilinogen Ur Leukocyte Esterase Urine WBC (Auto) Urine RBC (Auto) U Hyaline Cast (Auto) U Epithel Cells (Auto) Urine Bacteria (Auto) COVID-19 Eval Order SARS-CoV-2 (PCR) Influenza Type A (PCR) Influenza Type B (PCR) RSV (RT-PCR) 03/07/21 03/07/21 03/07/21 16:15 16:55 16:55 WBC RBC Hgb Hct MCV MCH MCHC RDW Std Deviation RDW Coeff of Francheska Plt Count MPV Immature Gran % (Auto) Neut % (Auto) Lymph % (Auto) [place] % (Auto) Eos % (Auto) Baso % (Auto) Neut # (Auto) Lymph # (Auto) [place] # (Auto) Eos # (Auto) Baso # (Auto) Immature Gran # (Auto) PT INR APTT PTT Ratio D-Dimer VBG pH VBG pCO2 VBG pO2 VBG HCO3 VBG O2 Saturation VBG Base Excess Barometric Pressure Sodium Potassium Chloride Carbon Dioxide Anion Gap BUN Creatinine Est Cr Clr Drug Dosing Est GFR ( Amer) Est GFR (Non-Af Amer) BUN/Creatinine Ratio Glucose POC Glucose Estimat Average Glucose Hemoglobin A1c Lactate Calcium Magnesium Ferritin Total Bilirubin Direct Bilirubin AST ALT Alkaline Phosphatase Troponin I C-Reactive Protein Total Protein Albumin Globulin Albumin/Globulin Ratio Procalcitonin 0.10 Urine Color Urine Appearance Urine pH Ur Specific [place] Urine Protein Urine Glucose (UA) Urine Ketones Urine Blood Urine Nitrite Urine Bilirubin Urine Urobilinogen Ur Leukocyte Esterase Urine WBC (Auto) Urine RBC (Auto) U Hyaline Cast (Auto) U Epithel Cells (Auto) Urine Bacteria (Auto) COVID-19 Eval Order CovFluRsv at [facility] SARS-CoV-2 (PCR) POSITIVE A* Influenza Type A (PCR) Negative Influenza Type B (PCR) Negative RSV (RT-PCR) Negative 03/07/21 03/07/21 03/07/21 17:18 17:18 19:07 WBC RBC Hgb Hct MCV MCH MCHC RDW Std Deviation RDW Coeff of Francheska Plt Count MPV Immature Gran % (Auto) Neut % (Auto) Lymph % (Auto) [place] % (Auto) Eos % (Auto) Baso % (Auto) Neut # (Auto) Lymph # (Auto) [place] # (Auto) Eos # (Auto) Baso # (Auto) Immature Gran # (Auto) PT INR APTT PTT Ratio D-Dimer VBG pH 7.46 H VBG pCO2 35 L VBG pO2 50 VBG HCO3 24 VBG O2 Saturation 86.7 VBG Base Excess 0.8 Barometric Pressure 729.2 Sodium Potassium Chloride Carbon Dioxide Anion Gap BUN Creatinine Est Cr Clr Drug Dosing Est GFR ( Amer) Est GFR (Non-Af Amer) BUN/Creatinine Ratio Glucose POC Glucose Estimat Average Glucose Hemoglobin A1c Lactate 1.0 Calcium Magnesium Ferritin Total Bilirubin Direct Bilirubin AST ALT Alkaline Phosphatase Troponin I C-Reactive Protein Total Protein Albumin Globulin Albumin/Globulin Ratio Procalcitonin Urine Color Yellow Urine Appearance Clear Urine pH 5.5 Ur Specific [place] 1.026 Urine Protein Trace H Urine Glucose (UA) 3+ H Urine Ketones 2+ H Urine Blood Negative Urine Nitrite Negative Urine Bilirubin Negative Urine Urobilinogen Negative Ur Leukocyte Esterase Negative Urine WBC (Auto) 1-5 Urine RBC (Auto) 0-4 U Hyaline Cast (Auto) 1-5 U Epithel Cells (Auto) 5-10 H Urine Bacteria (Auto) Negative COVID-19 Eval Order SARS-CoV-2 (PCR) Influenza Type A (PCR) Influenza Type B (PCR) RSV (RT-PCR) 03/08/21 03/08/21 03/08/21 07:49 07:49 07:49 WBC 10.24 RBC 4.76 Hgb 13.6 L Hct 38.8 L MCV 81.5 MCH 28.6 MCHC 35.1 RDW Std Deviation 39.6 RDW Coeff of Francheska 13.1 Plt Count 318 MPV 9.8 Immature Gran % (Auto) 0.9 Neut % (Auto) 81.8 Lymph % (Auto) 10.3 [place] % (Auto) 6.9 Eos % (Auto) 0.0 Baso % (Auto) 0.1 Neut # (Auto) 8.38 H Lymph # (Auto) 1.05 L [place] # (Auto) 0.71 H Eos # (Auto) 0.00 Baso # (Auto) 0.01 Immature Gran # (Auto) 0.09 H PT INR APTT PTT Ratio D-Dimer 480 VBG pH VBG pCO2 VBG pO2 VBG HCO3 VBG O2 Saturation VBG Base Excess Barometric Pressure Sodium 131 L Potassium 4.2 Chloride 97 L Carbon Dioxide 22 Anion Gap 12.0 H BUN 15 Creatinine 0.70 Est Cr Clr Drug Dosing 198.1 Est GFR ( Amer) 127.5 Est GFR (Non-Af Amer) 110.0 BUN/Creatinine Ratio 21.3 H Glucose 281 H POC Glucose Estimat Average Glucose Hemoglobin A1c Lactate Calcium 8.6 Magnesium 2.2 Ferritin 1232.3 H Total Bilirubin 0.6 Direct Bilirubin < 0.1 AST 33 ALT 44 Alkaline Phosphatase 88 Troponin I < 0.015 C-Reactive Protein 5.63 H Total Protein 6.9 Albumin 2.7 L Globulin Albumin/Globulin Ratio Procalcitonin Urine Color Urine Appearance Urine pH Ur Specific [place] Urine Protein Urine Glucose (UA) Urine Ketones Urine Blood Urine Nitrite Urine Bilirubin Urine Urobilinogen Ur Leukocyte Esterase Urine WBC (Auto) Urine RBC (Auto) U Hyaline Cast (Auto) U Epithel Cells (Auto) Urine Bacteria (Auto) COVID-19 Eval Order SARS-CoV-2 (PCR) Influenza Type A (PCR) Influenza Type B (PCR) RSV (RT-PCR) 03/08/21 03/08/21 03/08/21 07:49 08:06 08:12 WBC RBC Hgb Hct MCV MCH MCHC RDW Std Deviation RDW Coeff of Francheska Plt Count MPV Immature Gran % (Auto) Neut % (Auto) Lymph % (Auto) [place] % (Auto) Eos % (Auto) Baso % (Auto) Neut # (Auto) Lymph # (Auto) [place] # (Auto) Eos # (Auto) Baso # (Auto) Immature Gran # (Auto) PT INR APTT PTT Ratio D-Dimer VBG pH VBG pCO2 VBG pO2 VBG HCO3 VBG O2 Saturation VBG Base Excess Barometric Pressure Sodium Potassium Chloride Carbon Dioxide Anion Gap BUN Creatinine Est Cr Clr Drug Dosing Est GFR ( Amer) Est GFR (Non-Af Amer) BUN/Creatinine Ratio Glucose POC Glucose 327 H* 380 H* Estimat Average Glucose 315 Hemoglobin A1c 12.6 H Lactate Calcium Magnesium Ferritin Total Bilirubin Direct Bilirubin AST ALT Alkaline Phosphatase Troponin I C-Reactive Protein Total Protein Albumin Globulin Albumin/Globulin Ratio Procalcitonin Urine Color Urine Appearance Urine pH Ur Specific [place] Urine Protein Urine Glucose (UA) Urine Ketones Urine Blood Urine Nitrite Urine Bilirubin Urine Urobilinogen Ur Leukocyte Esterase Urine WBC (Auto) Urine RBC (Auto) U Hyaline Cast (Auto) U Epithel Cells (Auto) Urine Bacteria (Auto) COVID-19 Eval Order SARS-CoV-2 (PCR) Influenza Type A (PCR) Influenza Type B (PCR) RSV (RT-PCR) 03/08/21 03/08/21 03/08/21 08:16 11:51 11:54 WBC RBC Hgb Hct MCV MCH MCHC RDW Std Deviation RDW Coeff of Francheska Plt Count MPV Immature Gran % (Auto) Neut % (Auto) Lymph % (Auto) [place] % (Auto) Eos % (Auto) Baso % (Auto) Neut # (Auto) Lymph # (Auto) [place] # (Auto) Eos # (Auto) Baso # (Auto) Immature Gran # (Auto) PT INR APTT PTT Ratio D-Dimer VBG pH VBG pCO2 VBG pO2 VBG HCO3 VBG O2 Saturation VBG Base Excess Barometric Pressure Sodium Potassium Chloride Carbon Dioxide Anion Gap BUN Creatinine Est Cr Clr Drug Dosing Est GFR ( Amer) Est GFR (Non-Af Amer) BUN/Creatinine Ratio Glucose POC Glucose 344 H* 306 H* 268 H Estimat Average Glucose Hemoglobin A1c Lactate Calcium Magnesium Ferritin Total Bilirubin Direct Bilirubin AST ALT Alkaline Phosphatase Troponin I C-Reactive Protein Total Protein Albumin Globulin Albumin/Globulin Ratio Procalcitonin Urine Color Urine Appearance Urine pH Ur Specific [place] Urine Protein Urine Glucose (UA) Urine Ketones Urine Blood Urine Nitrite Urine Bilirubin Urine Urobilinogen Ur Leukocyte Esterase Urine WBC (Auto) Urine RBC (Auto) U Hyaline Cast (Auto) U Epithel Cells (Auto) Urine Bacteria (Auto) COVID-19 Eval Order SARS-CoV-2 (PCR) Influenza Type A (PCR) Influenza Type B (PCR) RSV (RT-PCR) 03/08/21 11:58 WBC RBC Hgb Hct MCV MCH MCHC RDW Std Deviation RDW Coeff of Francheska Plt Count MPV Immature Gran % (Auto) Neut % (Auto) Lymph % (Auto) [place] % (Auto) Eos % (Auto) Baso % (Auto) Neut # (Auto) Lymph # (Auto) [place] # (Auto) Eos # (Auto) Baso # (Auto) Immature Gran # (Auto) PT INR APTT PTT Ratio D-Dimer VBG pH VBG pCO2 VBG pO2 VBG HCO3 VBG O2 Saturation VBG Base Excess Barometric Pressure Sodium Potassium Chloride Carbon Dioxide Anion Gap BUN Creatinine Est Cr Clr Drug Dosing Est GFR ( Amer) Est GFR (Non-Af Amer) BUN/Creatinine Ratio Glucose POC Glucose 291 H Estimat Average Glucose Hemoglobin A1c Lactate Calcium Magnesium Ferritin Total Bilirubin Direct Bilirubin AST ALT Alkaline Phosphatase Troponin I C-Reactive Protein Total Protein Albumin Globulin Albumin/Globulin Ratio Procalcitonin Urine Color Urine Appearance Urine pH Ur Specific [place] Urine Protein Urine Glucose (UA) Urine Ketones Urine Blood Urine Nitrite Urine Bilirubin Urine Urobilinogen Ur Leukocyte Esterase Urine WBC (Auto) Urine RBC (Auto) U Hyaline Cast (Auto) U Epithel Cells (Auto) Urine Bacteria (Auto) COVID-19 Eval Order SARS-CoV-2 (PCR) Influenza Type A (PCR) Influenza Type B (PCR) RSV (RT-PCR)
[2021-03-08] MEDS: guaiFENesin SUGAR FREE 200 MG/10 ML UDC PO PRN (12:13)
[2021-03-08] MEDS ORDERED: INSULIN GLARGINE SOLOSTAR 100 UNITS/ML 3 ML PEN SC ONE (14:30)
--- NOTE | 2021-03-08 14:33 | Pharmacy Report ---
Pharmacy Glycemic Short Note 2 - Date of Service March 08, 2021 - Glycemic Short BSG Results (Last 24 hours): 03/07/21 03/08/21 03/08/21 16:15 07:49 08:06 Glucose 292 H 281 H POC Glucose 327 H* 03/08/21 03/08/21 03/08/21 08:12 08:16 11:51 Glucose POC Glucose 380 H* 344 H* 306 H* 03/08/21 03/08/21 11:54 11:58 Glucose POC Glucose 268 H 291 H OUTPATIENT ANTIDIABETIC REGIMEN: * Januvia, ozempic * A1c 12.6% ASSESSMENT: * 50 year old admitted with COVID pneumonia. Type 2 diabetic managed on januvia and ozempic at home. Started on steroids on admission * BSGs elevated at time of consult in the 300s. Plan to give 0.4 units/kg NPH to cover steroids. Give IV insulin bolus x 1 * A1c elevated baseline - will give full stress of 2 dosing for basal insulin PLAN FOR INPATIENT GLYCEMIC CONTROL: * Hold outpatient oral diabetes medications * Basal insulin * Lantus 40 x 1 * NPH 45 units daily - to cover DXM * Bolus insulin * NovoLog per scale ACHS or Q6hrs while NPO * Goal Range: Low 110 mg/dL - High 140 mg/dL * Correction Factor: 15 mg/dL/unit * Nutritional / Prandial insulin per carb ratio of 1 unit per 5 grams CHO consumed PLAN FOR DISCHARGE: * tbd
[2021-03-08] MEDS: ACETAMINOPHEN 325 MG TAB PO PRN (15:44)
[2021-03-08] MEDS: dexAMETHasone 6 MG in SYRINGE 0 ML IV SCH (15:45)
[2021-03-08] MEDS ORDERED: dexAMETHasone 6 MG in SYRINGE 0 ML IV SCH (20:00)
[2021-03-08] MEDS: REMDESIVIR 100 MG in SODIUM CHLORIDE 0.9% 230 ML IV SCH (20:06)
[2021-03-08] MEDS: SODIUM CHLORIDE 0.9% 10ML FLUSH IV SCH (20:06)
[2021-03-08] MEDS: methIMAzole 5 MG TABLET PO SCH (20:08)
[2021-03-08] MEDS: ESCITALOPRAM OXALATE 20 MG TAB PO SCH (20:10)
--- NOTE | 2021-03-08 22:18 | Electrocardiogram Report ---
Test Reason : Blood Pressure : / mmHG Vent. Rate : 091 BPM Atrial Rate : 091 BPM P-R Int : 158 ms QRS Dur : 092 ms QT Int : 372 ms P-R-T Axes : 029 -06 028 degrees QTc Int : 457 ms Poor data quality, interpretation may be adversely affected Normal sinus rhythm Normal ECG When compared with ECG of 29-NOV-2015 03:08, Premature supraventricular complexes are no longer Present Confirmed by Beny Lane ([id number]) on 03/08/2021 10:17:56 PM Referred By: Dionicio Vasquez Confirmed By:Beny Lane
[2021-03-09] MEDS: INSULIN ASPART 100 UNITS/ML 3 ML PEN SC SCH ×6 (00:30→20:55)
[2021-03-09] MEDS ORDERED: dilTIAZem HCl 5 MG/ML 5 ML VIAL IV STA (02:55)
[2021-03-09] MEDS ORDERED: STAT IV Infusion **Titration per Protocol STA (02:55)
[2021-03-09] MEDS: guaiFENesin SUGAR FREE 200 MG/10 ML UDC PO PRN ×2 (02:59→21:20)
[2021-03-09] MEDS: dilTIAZem HCL 125 MG in DEXTROSE 5% 100 ML IV SCH ×3 (03:21→15:16)
[2021-03-09 04:05] LABS: Hematocrit (blood only) 36.1 % (42-52); Hemoglobin 13.4 g/dL (14.0-18.0); Mean Corpuscular Hemoglobin 29.8 pg (25-34); Mean Corpuscular Hgb Conc 37.1 g/dL (32-36); Mean Corpuscular Volume 80.4 fL (80-100); Mean Platelet Volume 9.6 fL (7.4-10.4); Platelet Count 367 K/uL (130-400); RDW Coefficient of Variation 12.9 % (11.5-14.5); RDW Standard Deviation 38.1 fL (36.4-46.3); Red Blood Count 4.49 M/uL (4.7-6.1); White Blood Count 12.22 K/uL (4.8-10.8)
[2021-03-09 04:23] LABS: Partial Thromboplastin Ratio 0.9; Partial Thromboplastin Time 23.5 Seconds (21.0-31.0)
[2021-03-09 04:24] LABS: Alanine Aminotransferase 40 U/L (12-78); Aspartate Aminotransferase 27 U/L (15-37); BUN Creatinine Ratio 21.2 (10-20); Blood Urea Nitrogen 16 mg/dl (7-18); C Reactive Protein 5.12 mg/dl (0-0.29); Calcium 8.5 mg/dl (8.5-10.1); Carbon Dioxide 29 mmol/L (21-32); Chloride 100 mmol/L (98-107); Creatinine Clr Calc Pharmacy 187.4 ml/min; Est GFR (African American) 124.7; Est GFR (Non-African American) 107.6; Glucose 210 mg/dl (70-99); Potassium 3.6 mmol/L (3.5-5.1); Sodium 136 mmol/L (136-145)
[2021-03-09 04:27] LABS: Troponin I < 0.015 ng/ml (0-0.045)
[2021-03-09] MEDS: HEPARIN SODIUM/DEXTROSE 25,000 UNITS/500 ML BAG IV SCH ×2 (04:50→22:00)
[2021-03-09] MEDS: Heparin IV Adult Wt-Based Low-Dose *NO* Bolus Protocol IV SCH (07:45)
[2021-03-09] MEDS ORDERED: INSULIN HUMAN NPH SC SCH (09:00)
[2021-03-09] MEDS ORDERED: INSULIN GLARGINE SOLOSTAR 100 UNITS/ML 3 ML PEN SC SCH (09:00)
[2021-03-09] MEDS: dexAMETHasone 6 MG in SYRINGE 0 ML IV SCH (09:20)
[2021-03-09] MEDS: ROSUVASTATIN CALCIUM 20 MG TAB PO SCH (09:20)
[2021-03-09] MEDS: METOPROLOL TARTRATE 50 MG TAB PO SCH (09:21)
[2021-03-09] MEDS: ASPIRIN 81 MG ECTAB PO SCH (09:21)
--- NOTE | 2021-03-09 10:30 | Pharmacy Report ---
Pharmacy Glycemic Short Note 2 - Date of Service March 09, 2021 - Glycemic Short BSG Results (Last 24 hours): 03/08/21 03/08/21 03/08/21 11:51 11:54 11:58 Glucose POC Glucose 306 H* 268 H 291 H 03/08/21 03/08/21 03/09/21 16:41 20:03 00:04 Glucose POC Glucose 286 H 317 H* 249 H 03/09/21 03/09/21 03/09/21 03:48 03:56 07:55 Glucose 210 H POC Glucose 208 H 235 H OUTPATIENT ANTIDIABETIC REGIMEN: * Januvia, ozempic * A1c 12.6% ASSESSMENT: 03/09/21 * Pt has received 182 units of insulin over the past 24hrs * 85 units of basal with Lantus + NPH * 77 units of bolus with NovoLog * 20 units regular insulin as IV boluses * BSGs 210-344 mg/dl * Patient requires more basal insulin and more NPH to cover steroid effects, increase both * Patient requires more prandial and correction insulin, tighten CF/CR * Patient remains on IV Dexamethason 6mg daily, Remdesivir, Heparin and Cardizem drips 03/08/21 * 50 year old admitted with COVID pneumonia. Type 2 diabetic managed on januvia and ozempic at home. Started on steroids on admission * BSGs elevated at time of consult in the 300s. Plan to give 0.4 units/kg NPH to cover steroids. Give IV insulin bolus x 1 * A1c elevated baseline - will give full stress of 2 dosing for basal insulin PLAN FOR INPATIENT GLYCEMIC CONTROL: * Hold outpatient oral diabetes medications * Basal insulin - increase * Lantus 50 SQ daily * NPH 55 SQ units daily - to cover dexamethasone * Bolus insulin -tighten CF/CR * NovoLog per scale ACHS or Q6hrs while NPO * Goal Range: Low 110 mg/dL - High 140 mg/dL * Correction Factor: 10 mg/dL/unit * Nutritional / Prandial insulin per carb ratio of 1 unit per 3.5 grams CHO consumed PLAN FOR DISCHARGE: * tbd
[2021-03-09 10:57] LABS: Partial Thromboplastin Time 26.2 Seconds (21.0-31.0)
[2021-03-09] MEDS ORDERED: HEPARIN IV BOLUS 4,500 UNITS in SYRINGE 0 ML IV ONE (11:30)
--- NOTE | 2021-03-09 11:32 | Cardiology Consultation ---
Date of Consultation March 09, 2021 Assessment & Plan (1) Paroxysmal atrial fibrillation: Patient is essentially asymptomatic in regard to his atrial fibrillation. Recommend rate control strategy in the inpatient setting. Titrate metoprolol to 75 mg twice daily. Transition IV diltiazem infusion to oral diltiazem 30 mg 4 times daily. Wean infusion as tolerated. Continue intravenous heparin with plans to convert to oral Eliquis. I would not repeat echocardiogram at this time as I do not believe this would change person. (2) Hyperthyroidism: Undetectable TSH. Normal free T4 per most recent lab testing reviewed in the [facility] medical record. Consider endocrinology evaluation. (3) HTN (hypertension): Blood pressure improved with intravenous diltiazem infusion. Continue oral metoprolol. (4) Pneumonia due to 2019 novel coronavirus: Remdesivir, corticosteroids, supportive care as per internal medicine. History of Present Illness Reason for Consultation: Paroxysmal atrial fibrillation with rapid ventricular response Requesting Physician: Dr. Vidal Attending Physician: Erin Vidal MD History of Present Illness Patient seen and examined at the bedside in the [facility]- isolation unit. Chart reviewed. Admitted 03/07/2021 with shortness of breath and COVID-19 pneumonia. Chest x-ray demonstrating bilateral patchy infiltrates suggesting viral pneumonia. CTA of the chest negative for pulmonary embolus with evidence of moderate multifocal airspace opacities bilaterally. Admitted to the [facility]- isolation unit treated with remdesivir and corticosteroids. Reports feeling extremely fatigued with cough at home. Denies orthopnea or PND. Converted to atrial fibrillation with rapid ventricular response after admission. Patient unaware of his heart rate. Denies palpitations, chest discomfort, lightheadedness, dizziness, syncope, or near syncope. Carries a history of atrial fibrillation although declined anticoagulation in the past. Currently agreeable. Most recently evaluated by the undersigned 09/18/2018. Preserved LV function without significant valvular pathology per most recent echocardiogram October 2015. Carries a history of hyperthyroidism followed by endocrinology. Most recent TSH May 2020. Chronically treated with methimazole 15 mg daily. Patient currently resting comfortably without complaints at rest. Allergies Allergy/AdvReac Type Severity Reaction Status Date / Time testosterone AdvReac Severe "messes" Unverified 02/25/20 13:40 with AFIB Home Medications Medication Instructions Recorded Confirmed Type escitalopram oxalate 20 mg PO HS 02/25/20 03/07/21 History methimazole 15 mg PO HS 02/25/20 03/07/21 History metoprolol tartrate 50 mg PO USEASDIRECTD 02/25/20 03/07/21 History sitagliptin [Januvia] 100 mg PO QAM 02/25/20 03/07/21 History Crestor 40 mg PO DAILY 03/07/21 03/07/21 History semaglutide [Ozempic] 0.25 mg SUBCUT WK 03/07/21 03/07/21 History Patient History Medical History (Updated 03/09/21 @ 11:38 by Ajith Mccoy DO) COVID-19 No pertinent family history Paroxysmal atrial fibrillation Surgical History (Updated 03/07/21 @ 17:25 by Finn Bowens) No pertinent past surgical history Social History Smoking Status: Former smoker Hx Alcohol Use: Yes Alcohol type: beer Hx Substance Use: No Preferred Language: Malay Communication Ability: Effective Inspector Packer Glass Container Required: No Beliefs That Will Affect Care: None Current Living Situation: Spouse Other Information That Helps Us Care for You: No Feels Safe at Home: Yes Safety Concerns: Feels Safe At This Time Assistive Devices: None Review of Systems Review of Systems: All systems reviewed & are unremarkable except as noted in Subjective Physical Exam Constitutional: + ill appearing and + morbidly obese; no acute distress Respiratory: normal respiratory effort; no respiratory distress and no labored breathing Auscultation: + diminished lung sounds (Bilateral); no crackles, no rales, no rhonchi and no wheezes Cardiovascular: Rate/Rhythm: + tachycardic and + irregularly irregular Heart Sounds: normal S1 and normal S2; no murmur Vessels: radial pulses present; no JVD Extremities: no edema Gastrointestinal (Abdomen): Inspection/Auscultation: abdomen normal to inspection and normal bowel sounds; abdomen not distended Percussion/Palpation: abdomen nontender, no guarding and abdomen not rigid Neurologic: CN's II-XI intact bilaterally and moves all extremities; no focal motor deficits Motor/Sensory: no tremor Psychiatric: A+Ox3, euthymic affect Results & Data ([facility]) Vital Signs (Past 12 Hours) Vital Signs Temp Pulse Pulse Resp BP Pulse Ox 03/09/21 11:04 36.7 C 83 19 129/65 93 03/09/21 08:13 77 22 90 03/09/21 08:03 36.7 C 95 H 19 180/96 H 93 03/09/21 08:00 97 H 03/09/21 03:29 120 H 180/95 H 03/09/21 00:06 37.1 C 70 20 144/71 H 91 03/08/21 23:59 70
[2021-03-09] MEDS ORDERED: FUROSEMIDE 40 MG in SYRINGE 0 ML IV ONE (11:40)
[2021-03-09] MEDS ORDERED: INSULIN HUMAN REGULAR PER UNIT 10 UNITS in SYRINGE 9.9 ML IV ONE (12:00)
[2021-03-09] MEDS ORDERED: FUROSEMIDE 40 MG/4 ML VIAL IV ONE (12:00)
--- NOTE | 2021-03-09 12:30 | Hospitalist Progress Note ---
Date of Service March 09, 2021 Assessment & Plan (1) Pneumonia due to 2019 novel coronavirus: (2) Hypoxia: Acute hypoxic respiratory failure secondary to COVID-19 pneumonia Continue dexamethasone and remdesivir WBC increased to 12 Continue to monitor inflammatory markers and LFTs Continue oxygen supplementation Incentive spirometry and flutter Patient educated again on self proning Supportive care with antitussives as needed We will give another dose of IV Lasix today. Monitor electrolytes with Lasix Monitor I's and O's (3) Atrial fibrillation with RVR: (4) Paroxysmal atrial fibrillation: Patient has history of proximal A. fib. Has been following with cardiology. Had declined anticoagulation in the past and prefers only aspirin. Patient not developed A. fib with RVR overnight. Started on Cardizem drip on heparin drip. Heel Cutter recommendations appreciated. Started on p.o. diltiazem and Lopressor. Will wean off Cardizem drip as able. Discussed with patient about need for anticoagulation. And also need to transition to Eliquis eventually for long-term anticoagulation. He agrees with this. (5) ISAC (obstructive sleep apnea): Per banquet supervisor, patient has severe ISAC Continue CPAP at bedtime (6) Hyperthyroidism: Continue methimazole (7) Diabetes: Home antidiabetic regimen on hold. Patient diabetes is poorly controlled A1c is 12.6 Pharmacy on board for glycemic management while inpatient especially on dexamethasone therapy. We will get clinical informatics educator and may need insulin when patient is stable for discharge Agree with adjustments made with pharmacist for better glycemic control. If still poorly controlled, will start insulin drip (8) DVT prophylaxis: Lovenox subcu Admission and Anticipated Discharge Date Admission Date: March 07, 2021 Subjective Patient seen and examined Overnight patient went into A. fib with RVR. Was started on Cardizem drip on heparin drip. Oxygen requirement has also improved overnight Currently on Ventimask. Patient reports no improvement in symptoms. Still has persistent cough associated with chest pain, productive, shortness of breath with mild exertion, congestion , sore throat, mild generalized weakness and occasional chills. Review of Systems Constitutional: + chills, + fatigue and + malaise Eyes: no problem reported Ear, Nose, Mouth, Throat: + sore throat Respiratory: + cough, + dyspnea and + dyspnea on exertion Cardiovascular: + dyspnea on exertion Additional Comments: Chest pain with cough only Gastrointestinal: no abdominal pain, no nausea, no vomiting and no diarrhea/loose stools Genitourinary: + urinary frequency (Reports chronic); no dysuria and no difficulty urinating Neurologic: no dizziness, no headache(s) and no confusion Psychiatric: no depression, no anxiety and no confusion Physical Exam Constitutional: + well hydrated and + obese; no acute distress Eyes: PERRL, conjunctivae normal, anicteric sclerae ENMT: external ear and nose normal, oropharynx normal Respiratory: normal respiratory effort; no respiratory distress Auscultation: + diminished lung sounds; no crackles On Ventimask Cardiovascular: Rate/Rhythm: + irregularly irregular S1-S2. No pedal edema Gastrointestinal (Abdomen): normal bowel sounds, soft, nontender, no hepatosplenomegaly Musculoskeletal: no cyanosis or clubbing, extremities motor strength 5/5 Neurologic: PERRL, EOMI, accommodation nl, no face palsy, no dysarthria Psychiatric: A+Ox3, euthymic affect Genitourinary: no CVA tenderness Results & Data Results & Data ([facility]) Vital Signs (Past 12 Hours) Vital Signs Temp Pulse Pulse Resp BP Pulse Ox 03/09/21 11:04 36.7 C 83 19 129/65 93 03/09/21 08:13 77 22 90 03/09/21 08:03 36.7 C 95 H 19 180/96 H 93 03/09/21 08:00 97 H 03/09/21 03:29 120 H 180/95 H Laboratory Results Laboratory Results - last 24 hr 03/08/21 03/08/21 03/09/21 16:41 20:03 00:04 WBC RBC Hgb Hct MCV MCH MCHC RDW Std Deviation RDW Coeff of Francheska Plt Count MPV APTT PTT Ratio Sodium Potassium Chloride Carbon Dioxide Anion Gap BUN Creatinine Est Cr Clr Drug Dosing Est GFR ( Amer) Est GFR (Non-Af Amer) BUN/Creatinine Ratio Glucose POC Glucose 286 H 317 H* 249 H Calcium AST ALT Troponin I C-Reactive Protein Procalcitonin 03/09/21 03/09/21 03/09/21 03:48 03:48 03:48 WBC 12.22 H RBC 4.49 L Hgb 13.4 L Hct 36.1 L MCV 80.4 MCH 29.8 MCHC 37.1 H RDW Std Deviation 38.1 RDW Coeff of Francheska 12.9 Plt Count 367 MPV 9.6 APTT PTT Ratio Sodium 136 Potassium 3.6 Chloride 100 Carbon Dioxide 29 Anion Gap 7.0 BUN 16 Creatinine 0.74 Est Cr Clr Drug Dosing 187.4 Est GFR ( Amer) 124.7 Est GFR (Non-Af Amer) 107.6 BUN/Creatinine Ratio 21.2 H Glucose 210 H POC Glucose Calcium 8.5 AST 27 ALT 40 Troponin I < 0.015 C-Reactive Protein 5.12 H Procalcitonin 0.06 03/09/21 03/09/21 03/09/21 03:48 03:56 07:55 WBC RBC Hgb Hct MCV MCH MCHC RDW Std Deviation RDW Coeff of Francheska Plt Count MPV APTT 23.5 PTT Ratio 0.9 Sodium Potassium Chloride Carbon Dioxide Anion Gap BUN Creatinine Est Cr Clr Drug Dosing Est GFR ( Amer) Est GFR (Non-Af Amer) BUN/Creatinine Ratio Glucose POC Glucose 208 H 235 H Calcium AST ALT Troponin I C-Reactive Protein Procalcitonin 03/09/21 03/09/21 03/09/21 10:26 11:01 13:57 WBC RBC Hgb Hct MCV MCH MCHC RDW Std Deviation RDW Coeff of Francheska Plt Count MPV APTT 26.2 PTT Ratio 1.0 Sodium Potassium Chloride Carbon Dioxide Anion Gap BUN Creatinine Est Cr Clr Drug Dosing Est GFR ( Amer) Est GFR (Non-Af Amer) BUN/Creatinine Ratio Glucose POC Glucose 352 H* 239 H Calcium AST ALT Troponin I C-Reactive Protein Procalcitonin
[2021-03-09] MEDS ORDERED: dilTIAZem HCL 30 MG TAB PO SCH (13:00)
[2021-03-09] MEDS ORDERED: INSULIN ASPART 100 UNITS/ML 3 ML PEN SC ONE (14:00)
[2021-03-09 18:55] LABS: Partial Thromboplastin Ratio 1.2; Partial Thromboplastin Time 30.5 Seconds (21.0-31.0)
[2021-03-09] MEDS ORDERED: HEPARIN IV BOLUS 4,500 UNITS in SYRINGE 0 ML IV SCH (19:15)
[2021-03-09] MEDS: REMDESIVIR 100 MG in SODIUM CHLORIDE 0.9% 230 ML IV SCH (19:56)
[2021-03-09] MEDS: SODIUM CHLORIDE 0.9% 10ML FLUSH IV SCH (19:57)
[2021-03-09] MEDS: methIMAzole 5 MG TABLET PO SCH (20:00)
[2021-03-09] MEDS: METOPROLOL TARTRATE 25 MG TAB PO SCH (20:01)
[2021-03-09] MEDS: ESCITALOPRAM OXALATE 20 MG TAB PO SCH (20:02)
[2021-03-10 01:19] LABS: Hematocrit (blood only) 36.8 % (42-52); Hemoglobin 13.7 g/dL (14.0-18.0); Mean Corpuscular Hemoglobin 29.7 pg (25-34); Mean Corpuscular Hgb Conc 37.2 g/dL (32-36); Mean Corpuscular Volume 79.7 fL (80-100); Mean Platelet Volume 9.4 fL (7.4-10.4); Platelet Count 357 K/uL (130-400); RDW Standard Deviation 37.9 fL (36.4-46.3); Red Blood Count 4.62 M/uL (4.7-6.1); White Blood Count 9.85 K/uL (4.8-10.8)
[2021-03-10 01:27] LABS: Partial Thromboplastin Ratio 1.6; Partial Thromboplastin Time 42.9 Seconds (21.0-31.0)
[2021-03-10 01:33] LABS: BUN Creatinine Ratio 29.6 (10-20); Calcium 8.1 mg/dl (8.5-10.1); Creatinine Clr Calc Pharmacy 234.9 ml/min; Est GFR (African American) 136.8; Est GFR (Non-African American) 118.1; Magnesium 2.2 mg/dl (1.8-2.4); Potassium 3.1 mmol/L (3.5-5.1)
[2021-03-10 01:34] LABS: C Reactive Protein 3.89 mg/dl (0-0.29); Phosphorus 3.6 mg/dl (2.5-4.9)
[2021-03-10] MEDS: BENZONATATE 100 MG CAPSULE PO PRN (01:43)
[2021-03-10 01:51] LABS: Basophils # (auto) 0.02 K/uL (0-0.2); Basophils % (auto) 0.2 %; Immature Granulocytes # (auto) 0.05 K/uL (0.00-0.02); Immature Granulocytes % (auto) 0.5 %; Lymphocytes # (auto) 1.22 K/uL (1.2-3.4); Lymphocytes % (auto) 12.4 %; Monocytes # (auto) 0.77 K/uL (0.11-0.59); Monocytes % (auto) 7.8 %; Neutrophils # (auto) 7.79 K/uL (1.4-6.5); Neutrophils % (auto) 79.1 %
--- NOTE | 2021-03-10 06:12 | Electrocardiogram Report ---
Test Reason : Blood Pressure : / mmHG Vent. Rate : 109 BPM Atrial Rate : 111 BPM P-R Int : 000 ms QRS Dur : 100 ms QT Int : 340 ms P-R-T Axes : 000 -04 -01 degrees QTc Int : 457 ms Atrial fibrillation with rapid ventricular response Nonspecific T wave abnormality Abnormal ECG When compared with ECG of 07-MAR-2021 16:12, Atrial fibrillation has replaced Sinus rhythm Nonspecific T wave abnormality, worse in Inferior leads Nonspecific T wave abnormality, worse in Lateral leads Confirmed by Beny Lane ([id number]) on 03/10/2021 6:12:08 AM Referred By: Dionicio Vasquez Confirmed By:Beny Lane
[2021-03-10 08:19] LABS: Partial Thromboplastin Ratio 1.5; Partial Thromboplastin Time 38.3 Seconds (21.0-31.0)
[2021-03-10] MEDS: METOPROLOL TARTRATE 25 MG TAB PO SCH ×2 (09:10→20:37)
[2021-03-10] MEDS: dexAMETHasone 6 MG in SYRINGE 0 ML IV SCH (09:10)
[2021-03-10] MEDS: ROSUVASTATIN CALCIUM 20 MG TAB PO SCH (09:11)
[2021-03-10] MEDS: ASPIRIN 81 MG ECTAB PO SCH (09:11)
[2021-03-10] MEDS: POTASSIUM CHLORIDE / WTR 10 MEQ/100 ML PLCT IV SCH ×4 (09:21→14:53)
[2021-03-10] MEDS: INSULIN HUMAN NPH SC SCH (09:34)
[2021-03-10] MEDS: INSULIN GLARGINE SOLOSTAR 100 UNITS/ML 3 ML PEN SC SCH (09:34)
[2021-03-10] MEDS: INSULIN ASPART 100 UNITS/ML 3 ML PEN SC SCH ×4 (09:34→21:18)
[2021-03-10 09:57] LABS: Thyroid Stimulating Hormone < 0.005 uIu/ml (0.300-4.500)
[2021-03-10] MEDS: HEPARIN SODIUM/DEXTROSE 25,000 UNITS/500 ML BAG IV SCH ×4 (10:05→22:16)
--- NOTE | 2021-03-10 10:44 | Pharmacy Report ---
Pharmacy Glycemic Short Note 2 - Date of Service March 10, 2021 - Glycemic Short BSG Results (Last 24 hours): 03/09/21 03/09/21 03/09/21 11:01 13:57 15:13 Glucose POC Glucose 352 H* 239 H 191 H 03/09/21 03/09/21 03/10/21 16:57 20:11 00:58 Glucose 196 H POC Glucose 171 H 256 H 03/10/21 07:17 Glucose POC Glucose 261 H OUTPATIENT ANTIDIABETIC REGIMEN: * Januvia, ozempic * A1c 12.6% ASSESSMENT: 03/10/21 * Pt has received 212 units of insulin over the past 24hrs * 50 units of basal with Lantus * 55 units of NPH for steroid induced hyperglycemia from dexamethasone * 107 units of bolus with NovoLog * BSGs [phone] mg/dl * All BSGs above goal range of 140-180 mg/dl. Will increase NPH & Lantus and tighten CHO ratio * Insulin regimen will need tapered when DXM stopped 03/09/21 * Pt has received 182 units of insulin over the past 24hrs * 85 units of basal with Lantus + NPH * 77 units of bolus with NovoLog * 20 units regular insulin as IV boluses * BSGs 210-344 mg/dl * Patient requires more basal insulin and more NPH to cover steroid effects, increase both * Patient requires more prandial and correction insulin, tighten CF/CR * Patient remains on IV Dexamethason 6mg daily, Remdesivir, Heparin and Cardizem drips 03/08/21 * 50 year old admitted with COVID pneumonia. Type 2 diabetic managed on januvia and ozempic at home. Started on steroids on admission * BSGs elevated at time of consult in the 300s. Plan to give 0.4 units/kg NPH to cover steroids. Give IV insulin bolus x 1 * A1c elevated baseline - will give full stress of 2 dosing for basal insulin PLAN FOR INPATIENT GLYCEMIC CONTROL: * Hold outpatient oral diabetes medications * Basal insulin - increase * Lantus 60 SQ daily * NPH 65 SQ units daily - to cover dexamethasone * Bolus insulin -tighten CF/CR * NovoLog per scale ACHS or Q6hrs while NPO * Goal Range: Low 110 mg/dL - High 140 mg/dL * Correction Factor: 10 mg/dL/unit * Nutritional / Prandial insulin per carb ratio of 1 unit per 2 grams CHO consumed PLAN FOR DISCHARGE: * A1c = 12.6 % on 03/08/21 * Goal A1c = below 7 % based on age and comorbidities * A1c is greater than or equal to 10% --> consider triple therapy with metformin + basal insulin + (GLP1-RA OR prandial insulin). May need to continue additional antidiabetic agent based on patient specific factors (efficacy, hypo risk, weight gain/loss, side effects, cost) * Unsure why patient is not on metformin - assuming patient has tried this in the past without success * Recommend continuing Januvia and Ozempic * Recommend adding basal insulin dosing TBD once steroids tapered (exact formulation TBD based on insurance coverage) * Recommend adding bolus insulin with meals dosing TBD once steroids tapered (exact formulation TBD based on insurance coverage) * Support Patient Self-Management * Healthy Lifestyle (diet, exercise, and smoking cessation) * Disease self-management (SMBG) * Prevention of complications (BP, Lipid goals, Immunizations) * Consider outpatient Diabetes Self-Management Education & Support
--- NOTE | 2021-03-10 13:44 | Hospitalist Progress Note ---
Date of Service March 10, 2021 Assessment & Plan (1) Pneumonia due to 2019 novel coronavirus: (2) Hypoxia: Acute hypoxic respiratory failure secondary to COVID-19 pneumonia Continue dexamethasone and remdesivir CRP 5.63-->5.12-->3.89 Continue to monitor inflammatory markers and LFTs Continue oxygen supplementation. Discussed with RN. May do high flow nasal oxygen Patient stated he has not been doing incentive spirometry due to cough Encouraged to continue flutter and incentive spirometry Continue supportive care with antitussives as needed We will give another dose of IV Lasix today. Monitor electrolytes with Lasix Monitor I's and O's (3) Atrial fibrillation with RVR: (4) Paroxysmal atrial fibrillation: Patient has history of proximal A. fib. Has been following with cardiology. Had declined anticoagulation in the past and prefers only aspirin. Patient not developed A. fib with RVR 2 nights ago. Was started on Cardizem drip now off Continue heparin drip. Sanitation Engineer recommendations appreciated. Currently rate controlled Continue lopressor. Can adjust dose or add cardizem po as needed Plan to transition to Eliquis eventually for long-term anticoagulation. 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 Will try again tonight (6) Hyperthyroidism: Review of previous thyroid function tests in [facility] showed TSH was 0.81 in June 02, 2020. In view of patient's current clinical condition, A. fib with RVR; thyroid function test was done to assess control of patient's hypothyroidism. This showed hyperthyroidism is currently not controlled. TSH was less than 0.005 and free T4 was 2.30 I spoke to [facility] manager e learning Dr. Ellis via the transfer center. I discussed the patient with him and findings. He recommended to increase methimazole to 40 mg daily and start cholestyramine 4 g 4 times daily only while inpatient. He also recommended steroid and beta blockade but patient is already on dexamethasone for Covid 19 pneumonia and Lopressor for A. fib with RVR. He also recommended to monitor LFTs as well as WBC while on increased dose of methimazole as well as on discharge. Recommends to continue increased methimazole dose on discharge and patient to follow up with TFT/LFT/WBC check as well as Rebar Worker follow up in 3 weeks Methimazole 40mg ordered Will start cholestyramine at BID for now and increase as needed as patient does not want too many med changes (7) Diabetes: Home antidiabetic regimen on hold. Patient diabetes is poorly controlled A1c is 12.6 Pharmacy on board for glycemic management while inpatient especially on dexamethasone therapy. We will get staff development educator and may need insulin when patient is stable for discharge (8) DVT prophylaxis: Lovenox subcu Admission and Anticipated Discharge Date Admission Date: March 07, 2021 Subjective Patient seen and examined. Patient is currently on oxygen mask at 15 L/min No sore throat, chills or frequency today. Reports no change in other symptoms. Still having fatigue, cough, chest pain with cough, shortness of breath Review of Systems Constitutional: + chills, + fatigue and + malaise Eyes: no problem reported Ear, Nose, Mouth, Throat: no problem reported Respiratory: + cough, + dyspnea and + dyspnea on exertion Cardiovascular: + dyspnea and + dyspnea on exertion Additional Comments: Chest pain with cough only Gastrointestinal: no abdominal pain, no nausea, no vomiting and no diarrhea/loose stools Genitourinary: no dysuria, no difficulty urinating and no urinary frequency Musculoskeletal: no problem reported Neurologic: + dizziness (With activity); no headache(s) and no confusion Psychiatric: Reports feeling frustrated due to non-improvement some respiratory symptoms Physical Exam Constitutional: + well hydrated and + obese; no acute distress Eyes: PERRL, conjunctivae normal, anicteric sclerae ENMT: external ear and nose normal, oropharynx normal Respiratory: normal respiratory effort; no respiratory distress Auscultation: + diminished lung sounds; no crackles On oxymask at 15 L/min with saturation at 93% Cardiovascular: Rate/Rhythm: + irregularly irregular S1-S2. No pedal edema Gastrointestinal (Abdomen): normal bowel sounds, soft, nontender, no hepatosplenomegaly Musculoskeletal: no cyanosis or clubbing, extremities motor strength 5/5 Neurologic: PERRL, EOMI, accommodation nl, no face palsy, no dysarthria Psychiatric: A+Ox3, euthymic affect Genitourinary: no CVA tenderness Results & Data Results & Data ([facility]) Vital Signs (Past 12 Hours) Vital Signs Temp Pulse Pulse Resp BP Pulse Ox Pulse Ox 03/10/21 12:08 36.7 C 93 H 16 140/65 93 04/17/21 08:04 36.8 C 78 16 124/62 92 03/10/21 07:30 110 H 03/10/21 03:36 36.6 C 87 20 125/74 94 03/10/21 01:48 80 87 L Laboratory Results Laboratory Results - last 24 hr 03/09/21 03/09/21 03/09/21 15:13 16:57 18:10 WBC RBC Hgb Hct MCV MCH MCHC RDW Std Deviation RDW Coeff of Francheska Plt Count MPV Immature Gran % (Auto) Neut % (Auto) Lymph % (Auto) [place] % (Auto) Eos % (Auto) Baso % (Auto) Neut # (Auto) Lymph # (Auto) [place] # (Auto) Eos # (Auto) Baso # (Auto) Immature Gran # (Auto) APTT 30.5 PTT Ratio 1.2 Sodium Potassium Chloride Carbon Dioxide Anion Gap BUN Creatinine Est Cr Clr Drug Dosing Est GFR ( Amer) Est GFR (Non-Af Amer) BUN/Creatinine Ratio Glucose POC Glucose 191 H 171 H Calcium Phosphorus Magnesium AST ALT C-Reactive Protein Procalcitonin TSH Free T4 03/09/21 03/10/21 03/10/21 20:11 00:58 00:58 WBC 9.85 RBC 4.62 L Hgb 13.7 L Hct 36.8 L MCV 79.7 L MCH 29.7 MCHC 37.2 H RDW Std Deviation 37.9 RDW Coeff of Francheska 13.0 Plt Count 357 MPV 9.4 Immature Gran % (Auto) 0.5 Neut % (Auto) 79.1 Lymph % (Auto) 12.4 [place] % (Auto) 7.8 Eos % (Auto) 0.0 Baso % (Auto) 0.2 Neut # (Auto) 7.79 H Lymph # (Auto) 1.22 [place] # (Auto) 0.77 H Eos # (Auto) 0.00 Baso # (Auto) 0.02 Immature Gran # (Auto) 0.05 H APTT PTT Ratio Sodium 137 Potassium 3.1 L Chloride 100 Carbon Dioxide 30 Anion Gap 7.0 BUN 18 Creatinine 0.59 L Est Cr Clr Drug Dosing 234.9 Est GFR ( Amer) 136.8 Est GFR (Non-Af Amer) 118.1 BUN/Creatinine Ratio 29.6 H Glucose 196 H POC Glucose 256 H Calcium 8.1 L Phosphorus 3.6 Magnesium 2.2 AST 27 ALT 36 C-Reactive Protein 3.89 H Procalcitonin TSH Free T4 03/10/21 03/10/21 03/10/21 00:58 00:58 07:17 WBC RBC Hgb Hct MCV MCH MCHC RDW Std Deviation RDW Coeff of Francheska Plt Count MPV Immature Gran % (Auto) Neut % (Auto) Lymph % (Auto) [place] % (Auto) Eos % (Auto) Baso % (Auto) Neut # (Auto) Lymph # (Auto) [place] # (Auto) Eos # (Auto) Baso # (Auto) Immature Gran # (Auto) APTT 42.9 H PTT Ratio 1.6 Sodium Potassium Chloride Carbon Dioxide Anion Gap BUN Creatinine Est Cr Clr Drug Dosing Est GFR ( Amer) Est GFR (Non-Af Amer) BUN/Creatinine Ratio Glucose POC Glucose 261 H Calcium Phosphorus Magnesium AST ALT C-Reactive Protein Procalcitonin 0.11 TSH Free T4 03/10/21 03/10/21 03/10/21 07:44 07:44 11:32 WBC RBC Hgb Hct MCV MCH MCHC RDW Std Deviation RDW Coeff of Francheska Plt Count MPV Immature Gran % (Auto) Neut % (Auto) Lymph % (Auto) [place] % (Auto) Eos % (Auto) Baso % (Auto) Neut # (Auto) Lymph # (Auto) [place] # (Auto) Eos # (Auto) Baso # (Auto) Immature Gran # (Auto) APTT 38.3 H PTT Ratio 1.5 Sodium Potassium Chloride Carbon Dioxide Anion Gap BUN Creatinine Est Cr Clr Drug Dosing Est GFR ( Amer) Est GFR (Non-Af Amer) BUN/Creatinine Ratio Glucose POC Glucose 228 H Calcium Phosphorus Magnesium AST ALT C-Reactive Protein Procalcitonin TSH < 0.005 L Free T4 2.30 H
[2021-03-10] MEDS ORDERED: METOPROLOL TARTRATE 50 MG TAB PO ONE (15:00)
[2021-03-10 15:58] LABS: Partial Thromboplastin Ratio 1.4; Partial Thromboplastin Time 36.7 Seconds (21.0-31.0)
[2021-03-10] MEDS ORDERED: HEPARIN IV BOLUS 4,000 UNITS in SYRINGE 0 ML IV ONE (16:45)
[2021-03-10] MEDS ORDERED: FUROSEMIDE 40 MG in SYRINGE 0 ML IV ONE (18:30)
[2021-03-10] MEDS ORDERED: POTASSIUM CHLORIDE PWD 20 MEQ PACK PO ONE (18:30)
--- NOTE | 2021-03-10 18:48 | Electrocardiogram Report ---
Test Reason : Blood Pressure : / mmHG Vent. Rate : 067 BPM Atrial Rate : 394 BPM P-R Int : 000 ms QRS Dur : 094 ms QT Int : 442 ms P-R-T Axes : 000 -04 021 degrees QTc Int : 467 ms Atrial fibrillation Nonspecific T wave abnormality Prolonged QT Abnormal ECG When compared with ECG of 09-MAR-2021 04:47, Vent. rate has decreased BY 42 BPM Confirmed by Toby Dotson ([id number]) on 03/10/2021 6:48:16 PM Referred By: Dionicio Vasquez Confirmed By:Rigo Dotson
[2021-03-10] MEDS: REMDESIVIR 100 MG in SODIUM CHLORIDE 0.9% 230 ML IV SCH (19:51)
[2021-03-10] MEDS: ESCITALOPRAM OXALATE 20 MG TAB PO SCH (20:37)
[2021-03-10] MEDS: methIMAzole 5 MG TABLET PO SCH (20:38)
[2021-03-10] MEDS: guaiFENesin SUGAR FREE 200 MG/10 ML UDC PO PRN (20:42)
[2021-03-10] MEDS: SODIUM CHLORIDE 0.9% 10ML FLUSH IV SCH (20:52)
[2021-03-10] MEDS: CHOLESTYRAMINE LIGHT 4 GM PKT PO SCH (22:08)
[2021-03-10] MEDS ORDERED: LORazepam 0.5 MG TAB PO STA (22:53)
[2021-03-10] MEDS: ACETAMINOPHEN 325 MG TAB PO PRN (23:06)
[2021-03-11] MEDS: BENZONATATE 100 MG CAPSULE PO PRN (03:48)
[2021-03-11] MEDS ORDERED: LORazepam 0.25 MG/0.5 ML VIAL IV STA (04:09)
[2021-03-11] MEDS: METOPROLOL TARTRATE 1 MG/ML VIAL IV PRN ×2 (04:43→12:55)
[2021-03-11] MEDS ORDERED: dilTIAZem HCL 30 MG TAB PO ONE (05:02)
[2021-03-11] MEDS: ACETAMINOPHEN 325 MG TAB PO PRN (05:04)
[2021-03-11] MEDS: guaiFENesin SUGAR FREE 200 MG/10 ML UDC PO PRN (05:27)
[2021-03-11 06:08] LABS: Albumin Level 2.6 gm/dl (3.4-5.0); BUN Creatinine Ratio 18.8 (10-20); C Reactive Protein 4.48 mg/dl (0-0.29); Calcium 8.5 mg/dl (8.5-10.1); Creatinine Clr Calc Pharmacy 178.2 ml/min; Est GFR (African American) 122.6; Est GFR (Non-African American) 105.8; Potassium 3.2 mmol/L (3.5-5.1)
[2021-03-11 06:13] LABS: Albumin Globulin Ratio 0.6 (0.9-2); Ferritin 1290.5 ng/ml (8-388); Globulin 4.4 gm/dl (2.5-4.0)
[2021-03-11 06:17] LABS: Hematocrit (blood only) 40.5 % (42-52); Hemoglobin 14.5 g/dL (14.0-18.0); Mean Corpuscular Hemoglobin 29.2 pg (25-34); Mean Corpuscular Hgb Conc 35.8 g/dL (32-36); Mean Corpuscular Volume 81.7 fL (80-100); Mean Platelet Volume 9.5 fL (7.4-10.4); Platelet Count 435 K/uL (130-400); RDW Coefficient of Variation 13.1 % (11.5-14.5); RDW Standard Deviation 39.3 fL (36.4-46.3); Red Blood Count 4.96 M/uL (4.7-6.1); White Blood Count 20.63 K/uL (4.8-10.8)
[2021-03-11] MEDS ORDERED: METOPROLOL TARTRATE 1 MG/ML VIAL IV STA (06:33)
[2021-03-11 07:03] LABS: D Dimer 480 ug/L FEU (0-500); Partial Thromboplastin Ratio 1.3; Partial Thromboplastin Time 34.7 Seconds (21.0-31.0)
[2021-03-11] MEDS ORDERED: HEPARIN IV BOLUS 4,000 UNITS in SYRINGE 0 ML IV ONE (07:30)
[2021-03-11] MEDS: HEPARIN SODIUM/DEXTROSE 25,000 UNITS/500 ML BAG IV SCH ×4 (07:50→20:16)
[2021-03-11] MEDS ORDERED: POTASSIUM CHLORIDE PWD 20 MEQ PACK PO ONE (08:02)
[2021-03-11] MEDS: ASPIRIN 81 MG ECTAB PO SCH (08:17)
[2021-03-11] MEDS: ROSUVASTATIN CALCIUM 20 MG TAB PO SCH (08:17)
[2021-03-11] MEDS: dexAMETHasone 6 MG in SYRINGE 0 ML IV SCH (08:17)
[2021-03-11] MEDS: METOPROLOL TARTRATE 25 MG TAB PO SCH ×2 (08:18→20:20)
[2021-03-11] MEDS: dilTIAZem HCL 30 MG TAB PO SCH ×3 (08:18→20:17)
--- NOTE | 2021-03-11 08:49 | XRay Report ---
XR chest 1V portable CLINICAL HISTORY: Assess pneumonia COMPARISON STUDY: 03/07/2021 FINDINGS: The heart remains enlarged. There are persistent bilateral pulmonary airspace opacities, eq uivocally progressive on the right.. There are low lung volumes. No pneumothorax is visualized. There are no large pleural effusions.[ IMPRESSION: 1. Stable cardiomegaly 2. Persistent bilateral pulmonary airspace opacities consistent with a multifocal pneumonia 3. Low lung volumes ACT 112: Negative or not required by law. Electronically signed by: Uday Bustillos M.D. 03/11/2021 8:48 AM
[2021-03-11] MEDS: CHOLESTYRAMINE LIGHT 4 GM PKT PO SCH ×2 (09:05→20:21)
[2021-03-11] MEDS: POTASSIUM CHLORIDE / WTR 10 MEQ/100 ML PLCT IV SCH ×6 (09:11→22:18)
[2021-03-11] MEDS: INSULIN GLARGINE SOLOSTAR 100 UNITS/ML 3 ML PEN SC SCH (09:42)
[2021-03-11] MEDS: INSULIN HUMAN NPH SC SCH (09:42)
[2021-03-11] MEDS: INSULIN ASPART 100 UNITS/ML 3 ML PEN SC SCH ×4 (09:42→20:23)
--- NOTE | 2021-03-11 12:26 | Cardiology Progress Note ---
Date of Service March 11, 2021 Assessment & Plan (1) Paroxysmal atrial fibrillation: Maintaining persistent atrial fibrillation since admission but rate controlled on combination of metoprolol and diltiazem. Arrhythmia aggravated by current respiratory infection and hyperthyroidism. Appropriately anticoagulate with IV heparin with plans to transition to Eliquis once clinical improvement demonstrated Agree with potassium supplementation (2) Hyperthyroidism: (3) HTN (hypertension): (4) Pneumonia due to 2019 novel coronavirus: Remdesivir, corticosteroids, supportive care as per internal medicine. Still with significant oxygen demands Admission and Anticipated Discharge Date Admission Date: March 07, 2021 Subjective Patient was seen and examined, chart, medications, telemetry reviewed. Patient still very fatigued with significant oxygen demands. Atrial fibrillation appears to be under better rate control. Anticoagulated with IV heparin Physical Exam Constitutional: + ill appearing; no acute distress Eyes: PERRL, conjunctivae normal, anicteric sclerae ENMT: external ear and nose normal, oropharynx normal Neck: trachea midline, no thyromegaly + thick neck Respiratory: + cough Auscultation: + diminished lung sounds Cardiovascular: Rate/Rhythm: + irregularly irregular Heart Sounds: normal S1 and normal S2; no gallop and no murmur Palpation: normal PMI Vessels: normal carotid upstroke and radial pulses present; no JVD and no carotid bruit Extremities: no edema Gastrointestinal (Abdomen): normal bowel sounds, soft, nontender, no hepatosplenomegaly Musculoskeletal: no cyanosis or clubbing, extremities motor strength 5/5 Skin: no rashes, warm and dry Neurologic: PERRL, EOMI, accommodation nl, no face palsy, no dysarthria Psychiatric: A+Ox3, euthymic affect Results & Data ([facility]) Vital Signs (Past 12 Hours) Vital Signs Temp Pulse Pulse Pulse Resp BP BP 03/11/21 11:23 36.8 C 86 16 03/11/21 08:00 111 H 03/11/21 07:44 36.8 C 94 H 18 03/11/21 06:48 37.4 C 125 H 18 03/11/21 06:46 125 H 142/72 H 03/11/21 05:25 135 H 03/11/21 04:46 125 H 03/11/21 04:43 125 H 148/94 H 03/11/21 03:23 37.0 C 88 20 153/95 H 03/11/21 02:20 103 H 23 BP Pulse Ox 03/11/21 11:23 129/75 90 03/11/21 08:00 03/11/21 07:44 124/80 91 03/11/21 06:48 142/72 H 80 L 03/11/21 06:46 03/11/21 05:25 153/79 H 03/11/21 04:46 148/94 H 88 L 03/11/21 04:43 03/11/21 03:23 90 03/11/21 02:20 93 Laboratory Results Laboratory Results - last 24 hr 03/10/21 03/10/21 03/10/21 15:35 16:50 17:39 WBC RBC Hgb Hct MCV MCH MCHC RDW Std Deviation RDW Coeff of Francheska Plt Count MPV APTT 36.7 H PTT Ratio 1.4 D-Dimer Sodium Potassium 3.3 L Chloride Carbon Dioxide Anion Gap BUN Creatinine Est Cr Clr Drug Dosing Est GFR ( Amer) Est GFR (Non-Af Amer) BUN/Creatinine Ratio Glucose POC Glucose 172 H Calcium Ferritin Total Bilirubin AST ALT Alkaline Phosphatase C-Reactive Protein Total Protein Albumin Globulin Albumin/Globulin Ratio Procalcitonin 03/10/21 03/10/21 03/11/21 20:03 22:43 05:38 WBC RBC Hgb Hct MCV MCH MCHC RDW Std Deviation RDW Coeff of Francheska Plt Count MPV APTT 53.0 H* PTT Ratio 2.0 D-Dimer Sodium 136 Potassium 3.2 L Chloride 99 Carbon Dioxide 28 Anion Gap 9.0 BUN 14 Creatinine 0.77 Est Cr Clr Drug Dosing 178.2 Est GFR ( Amer) 122.6 Est GFR (Non-Af Amer) 105.8 BUN/Creatinine Ratio 18.8 Glucose 153 H POC Glucose 187 H Calcium 8.5 Ferritin 1290.5 H Total Bilirubin 1.0 AST 24 ALT 37 Alkaline Phosphatase 98 C-Reactive Protein 4.48 H Total Protein 7.0 Albumin 2.6 L Globulin 4.4 H Albumin/Globulin Ratio 0.6 L Procalcitonin 03/11/21 03/11/21 03/11/21 05:38 05:38 05:38 WBC 20.63 H RBC 4.96 Hgb 14.5 Hct 40.5 L MCV 81.7 MCH 29.2 MCHC 35.8 RDW Std Deviation 39.3 RDW Coeff of Francheska 13.1 Plt Count 435 H MPV 9.5 APTT 34.7 H PTT Ratio 1.3 D-Dimer 480 Sodium Potassium Chloride Carbon Dioxide Anion Gap BUN Creatinine Est Cr Clr Drug Dosing Est GFR ( Amer) Est GFR (Non-Af Amer) BUN/Creatinine Ratio Glucose POC Glucose Calcium Ferritin Total Bilirubin AST ALT Alkaline Phosphatase C-Reactive Protein Total Protein Albumin Globulin Albumin/Globulin Ratio Procalcitonin 0.25 03/11/21 03/11/21 07:41 11:21 WBC RBC Hgb Hct MCV MCH MCHC RDW Std Deviation RDW Coeff of Francheska Plt Count MPV APTT PTT Ratio D-Dimer Sodium Potassium Chloride Carbon Dioxide Anion Gap BUN Creatinine Est Cr Clr Drug Dosing Est GFR ( Amer) Est GFR (Non-Af Amer) BUN/Creatinine Ratio Glucose POC Glucose 132 H 176 H Calcium Ferritin Total Bilirubin AST ALT Alkaline Phosphatase C-Reactive Protein Total Protein Albumin Globulin Albumin/Globulin Ratio Procalcitonin
--- NOTE | 2021-03-11 13:12 | Hospitalist Progress Note ---
Date of Service March 11, 2021 Assessment & Plan (1) Pneumonia due to 2019 novel coronavirus: (2) Hypoxia: Acute hypoxic respiratory failure secondary to COVID-19 pneumonia Continue dexamethasone and remdesivir CRP 5.63-->5.12-->3.89-->4.48 Continue to monitor inflammatory markers Continue oxygen supplementation. Encouraged to continue flutter and incentive spirometry Continue supportive care with antitussives as needed We will give another dose of Lasix today once electrolytes are repleted Hypokalemic today. Being repleted. Recheck later Increased WBC may be related to steroids but will continue to monitor for bacterial superinfection Monitor procal which has been negative XR chest today show persistent findings. (3) Atrial fibrillation with RVR: (4) Paroxysmal atrial fibrillation: Patient has history of proximal A. fib. Has been following with cardiology. Had declined anticoagulation in the past and prefers only aspirin. Patient not developed A. fib with RVR 2 nights ago. Was started on Cardizem drip now off Continue heparin drip. Manager Copy recommendations appreciated. Rate is poorly controlled. Start Cardizem p.o. 30 3 times daily in addition to Lopressor 75 twice daily We will monitor and adjust meds as needed Plan to transition to Eliquis eventually for long-term anticoagulation. (5) ISAC (obstructive sleep apnea): Per rope tow operator, patient has severe ISAC Was able to tolerate CPAP overnight. Encouraged use (6) Hyperthyroidism: Review of previous thyroid function tests in [facility] showed TSH was 0.81 in June 02, 2020. In view of patient's current clinical condition, A. fib with RVR; thyroid function test was done to assess control of patient's hypothyroidism. This showed hyperthyroidism is currently not controlled. TSH was less than 0.005 and free T4 was 2.30 On 03/10/21, I spoke to [facility] digital producer Dr. Ellis via the transfer center. I discussed the patient with him and findings. He recommended to increase methimazole to 40 mg daily and start cholestyramine 4 g 4 times daily only while inpatient. He also recommended steroid and beta blockade but patient is already on dexamethasone for Covid 19 pneumonia and Lopressor for A. fib with RVR. He also recommended to monitor LFTs as well as WBC while on increased dose of methimazole as well as on discharge. Recommends to continue increased methima zole dose on discharge and patient to follow up with TFT/LFT/WBC check as well as [facility] follow up in 3 weeks Methimazole 40mg ordered Started cholestyramine at BID as patient does not want too many med changes at the time. (7) Diabetes: Home antidiabetic regimen on hold. Patient diabetes is poorly controlled A1c is 12.6 Pharmacy on board for glycemic management while inpatient especially on dexamethasone therapy. We will get asthma educator and may need insulin when patient is stable for discharge (8) DVT prophylaxis: Heparin drip Admission and Anticipated Discharge Date Admission Date: March 07, 2021 Subjective Patient seen and examined. Still reports some persistent cough, dyspnea, dizziness on mild exertion, generalized weakness and chest pain with cough Review of Systems Constitutional: + fatigue and + malaise; no fever and no chills Eyes: no problem reported Ear, Nose, Mouth, Throat: no problem reported Respiratory: + cough, + dyspnea and + dyspnea on exertion Cardiovascular: + dyspnea and + dyspnea on exertion Additional Comments: Chest pain with cough only Gastrointestinal: no abdominal pain, no nausea, no vomiting and no diarrhea /loose stools Genitourinary: no dysuria, no difficulty urinating and no urinary frequency Musculoskeletal: + muscle weakness Neurologic: + dizziness (With activity); no headache(s) and no confusion Psychiatric: no depression and no anxiety Reports feeling frustrated due to non-improvement some respiratory symptoms Physical Exam Constitutional: + well hydrated and + obese; no acute distress Eyes: PERRL, conjunctivae normal, anicteric sclerae ENMT: external ear and nose normal, oropharynx normal Respiratory: normal respiratory effort; no respiratory distress Auscultation: + diminished lung sounds; no crackles On oxygen mask with oxygen saturation at 91 to 92% Cardiovascular: Rate/Rhythm: + irregularly irregular S1 S2 Gastrointestinal (Abdomen): normal bowel sounds, soft, nontender, no hepatosplenomegaly Musculoskeletal: No pedal edema Neurologic: PERRL, EOMI, accommodation nl, no face palsy, no dysarthria Psychiatric: A+Ox3, euthymic affect Genitourinary: no CVA tenderness Results & Data Results & Data ([facility]) Vital Signs (Past 12 Hours) Vital Signs Temp Pulse Pulse Pulse Resp BP BP 03/11/21 12:55 130 H 106/73 03/11/21 11:23 36.8 C 86 16 03/11/21 08:00 111 H 03/11/21 07:44 36.8 C 94 H 18 03/11/21 06:48 37.4 C 125 H 18 03/11/21 06:46 125 H 142/72 H 03/11/21 05:25 135 H 03/11/21 04:46 125 H 03/11/21 04:43 125 H 148/94 H 03/11/21 03:23 37.0 C 88 20 153/95 H 03/11/21 02:20 103 H 23 BP Pulse Ox 03/11/21 12:55 03/11/21 11:23 129/75 90 03/11/21 08:00 03/11/21 07:44 124/80 91 03/11/21 06:48 142/72 H 80 L 03/11/21 06:46 03/11/21 05:25 153/79 H 03/11/21 04:46 148/94 H 88 L 03/11/21 04:43 03/11/21 03:23 90 03/11/21 02:20 93 Laboratory Results Laboratory Results - last 24 hr 03/10/21 03/10/21 03/10/21 15:35 16:50 17:39 WBC RBC Hgb Hct MCV MCH MCHC RDW Std Deviation RDW Coeff of Francheska Plt Count MPV APTT 36.7 H PTT Ratio 1.4 D-Dimer Sodium Potassium 3.3 L Chloride Carbon Dioxide Anion Gap BUN Creatinine Est Cr Clr Drug Dosing Est GFR ( Amer) Est GFR (Non-Af Amer) BUN/Creatinine Ratio Glucose POC Glucose 172 H Calcium Ferritin Total Bilirubin AST ALT Alkaline Phosphatase C-Reactive Protein Total Protein Albumin Globulin Albumin/Globulin Ratio Procalcitonin 03/10/21 03/10/21 03/11/21 20:03 22:43 05:38 WBC RBC Hgb Hct MCV MCH MCHC RDW Std Deviation RDW Coeff of Francheska Plt Count MPV APTT 53.0 H* PTT Ratio 2.0 D-Dimer Sodium 136 Potassium 3.2 L Chloride 99 Carbon Dioxide 28 Anion Gap 9.0 BUN 14 Creatinine 0.77 Est Cr Clr Drug Dosing 178.2 Est GFR ( Amer) 122.6 Est GFR (Non-Af Amer) 105.8 BUN/Creatinine Ratio 18.8 Glucose 153 H POC Glucose 187 H Calcium 8.5 Ferritin 1290.5 H Total Bilirubin 1.0 AST 24 ALT 37 Alkaline Phosphatase 98 C-Reactive Protein 4.48 H Total Protein 7.0 Albumin 2.6 L Globulin 4.4 H Albumin/Globulin Ratio 0.6 L Procalcitonin 03/11/21 03/11/21 03/11/21 05:38 05:38 05:38 WBC 20.63 H RBC 4.96 Hgb 14.5 Hct 40.5 L MCV 81.7 MCH 29.2 MCHC 35.8 RDW Std Deviation 39.3 RDW Coeff of Francheska 13.1 Plt Count 435 H MPV 9.5 APTT 34.7 H PTT Ratio 1.3 D-Dimer 480 Sodium Potassium Chloride Carbon Dioxide Anion Gap BUN Creatinine Est Cr Clr Drug Dosing Est GFR ( Amer) Est GFR (Non-Af Amer) BUN/Creatinine Ratio Glucose POC Glucose Calcium Ferritin Total Bilirubin AST ALT Alkaline Phosphatase C-Reactive Protein Total Protein Albumin Globulin Albumin/Globulin Ratio Procalcitonin 0.25 03/11/21 03/11/21 07:41 11:21 WBC RBC Hgb Hct MCV MCH MCHC RDW Std Deviation RDW Coeff of Francheska Plt Count MPV APTT PTT Ratio D-Dimer Sodium Potassium Chloride Carbon Dioxide Anion Gap BUN Creatinine Est Cr Clr Drug Dosing Est GFR ( Amer) Est GFR (Non-Af Amer) BUN/Creatinine Ratio Glucose POC Glucose 132 H 176 H Calcium Ferritin Total Bilirubin AST ALT Alkaline Phosphatase C-Reactive Protein Total Protein Albumin Globulin Albumin/Globulin Ratio Procalcitonin
[2021-03-11 15:01] LABS: Partial Thromboplastin Ratio 2.3
[2021-03-11 15:07] LABS: Partial Thromboplastin Time 61.7 Seconds (21.0-31.0)
[2021-03-11] MEDS ORDERED: FUROSEMIDE 40 MG in SYRINGE 0 ML IV ONE (16:45)
[2021-03-11] MEDS ORDERED: STAT IV Infusion **Titration per Protocol STA (17:03)
[2021-03-11] MEDS ORDERED: FUROSEMIDE 40 MG/4 ML VIAL IV ONE ×2 (17:19→17:52)
[2021-03-11] MEDS: DEXMEDETOMIDINE HCL 200 MCG in SODIUM CHLORIDE 0.9% 48 ML IV SCH ×2 (18:00→22:17)
[2021-03-11] MEDS: Heparin IV Adult Wt-Based Low-Dose *NO* Bolus Protocol IV SCH ×2 (18:17→18:18)
[2021-03-11 19:10] LABS: BUN Creatinine Ratio 17.8 (10-20); Calcium 8.5 mg/dl (8.5-10.1); Creatinine Clr Calc Pharmacy 198.8 ml/min; Est GFR (African American) 128.3; Est GFR (Non-African American) 110.7; Potassium 3.4 mmol/L (3.5-5.1)
[2021-03-11] MEDS ORDERED: POTASSIUM CHLORIDE CRTAB 20 MEQ TABCR PO STA (19:30)
--- NOTE | 2021-03-11 19:32 | Critical Care Consultation ---
Date of Consultation March 11, 2021 Assessment & Plan (1) Admitted to intensive care unit: Reason Critically Ill: 50-year-old male with hypoxic respiratory failure in the setting of COVID-19 pneumonia requiring close monitoring for possible need for airway intervention. Patient currently requiring high flow and CPAP as well as Precedex to facilitate improved work of breathing and anxiety related to current hospital course. NEURO - * CAM ICU: NEGATIVE * Anxiety: * Continue w/ Precedex currently. * Certainly this must be monitored closely to facility appropriate anxiolysis w/o profound sedation which could certainly precipitate need for intubation. * Currently doing very well on low dose Precedex. * Will continue throughout the night. * Consider transitioning to PO Rx if the patient does well tonight. CARDIAC/VASCULAR - * A. Fib w/ RVR: * Patient w/ known h/o PAF in the outpatient setting. * Converted to A. fib during hospital course. * Likely 2/2 current respiratory disease process as well has hyperthyroid state. * Currently on PO Rx only at this time. * Anticoagulated on Heparin gtt. * Reccs per Cardiology who is currently managing. * HTN: * BPs stable at this time. * Continue current Rx. * Monitor on telemetry. RESPIRATORY - * Hypoxic Respiratory Failure 2/2 Covid-19 Pneumonia: * Currently receiving Dexamethasone and Remdesivir - would continue. * Requiring HFNC/CPAP for increasing O2 requirements. * Unfortunately, the patient has not had interested in most self-initiated interventions including proning, IS, Flutter valve. * Had jay discussion w/ patient regarding utilization of the above to help exercise lungs, improve oxygenation, and hopefully decrease the need for intubation. * States that he will try all of these and actually had the Flutter valve in his hand to use as I was leaving the room. * Discussed pt w/ RT. * Will encourage home CPAP mask at night. * Low threshold for intubation if the patient were to continue to decline. GI/NUTRITION - * Diet as tolerated. RENAL/LYTES - * Hypokalemia: * Will aim for K >4 in the setting of a. fib. * Will monitor closely as he has received IV Lasix recently. * Volume Status: * Patient ~3L positive currently. * Diuresed 1.5 L after 40 mg IV Lasix. * Will aim for net negative goal over the next few days. - * No concerns at this time. * Strict I&Os. ENDO - * DMII w/ Hyperglycemia: * BSGs per unit protocol. ISS --> gtt per unit policy. * Likely worsened by current Steroids. * Hyperthyroidism: * Appears to be appropriately managed to this point. * Continue w/ current Rx as per hospitalist/endo. HEME - * Stable H&H ID - * COVID-19 infection: * Initially diagnosed on 02/28. * Admitted 03/07 w/ hypoxia and pneumonia. * Continue Dexamethasone and Remdesivir. * Monitor fever curve/AM CXRs for development of adventitious infections. * Hold on Abx at this time. LINES/IV ACCESS - * PIVs x2 DVT PROPHYLAXIS - * Heparin gtt * SCDs I have personally spent 35 minutes of critical care time in the direct management of this patient. This is a life/limb threatening event. This includes time spent evaluating patient, direct bedside care, chart review, placing orders, interpretation of diagnostic studies, discussion with consultants, patient, and family members, as well as other required patient management ac tivities. This time is exclusive of all separately billable procedures, and teaching time and separate from and in addition to any other critical care service time. Thank you for allowing us to participate in the care of this patient. Please refer to my attending physician's documentation for any further recommendations. (2) Pneumonia due to 2019 novel coronavirus: (3) Hypoxia: (4) ISAC (obstructive sleep apnea): (5) Atrial fibrillation with RVR: (6) HTN (hypertension): (7) Hyperthyroidism: (8) Diabetes: History of Present Illness Attending Physician: Erin Vidal MD History of Present Illness Patient is a 50-year-old male with a significant past medical history of paroxysmal A. fib, obstructive sleep apnea, hypothyroidism, type 2 diabetes, hypertension, and anxiety who was admitted to this facility on 03/07 for COVID-19 pneumonia with associated hypoxia. Patient initially tested positive for COVID- 19 on 02/28. He presented to the emergency department on 03/07 with increasing shortness of breath and pleuritic chest discomfort. He was found to be hypoxic on room air with saturations in the high 80s. CT of the chest at that time demonstrated multiple groundglass opacities consistent with diagnosis of COVID- 19 pneumonia. Patient was initiated on IV dexamethasone and remdesivir. Patient is required high flow nasal cannula with escalating values over the last few days. Patient unfortunately would not tolerate facemask BiPAP secondary to anxiety. Overnight, the patient was able to utilize his home CPAP mask (nasal prongs) for most of the night. He seemed to do better from an oxygenation standpoint with this on, but reports that it causes "nasal burning" and he cannot tolerate it for too long. Patient refuses the prone secondary to discomfort. He will rotate from left side to right side, however. Throughout his course, the patient did convert to A. fib with RVR. This is subsequently been rate controlled initially with IV Cardizem and is currently tolerating metoprolol and oral Cardizem. He has been anticoagulated on heparin drip. Given patient's escalating oxygen requirements and anxiety related to noninvasives, the patient was transferred to ICU service for ongoing management and anxiolytic therapy with close monitoring of respiratory status. Upon evaluation in the ICU, the patient is awake, alert, and oriented. He is in no apparent respiratory distress. He is tolerating high flow with settings of 55 L and 85% with saturations in the high 80s/low 90s. He is able to speak in complete sentences. The patient is pleasantly sedate, but awakes and has full conversation with provider. He denies any complaints of chest pain at this time. He reports that his coughing fits have decreased as well. He refuses to try facemask BiPAP, but states that he will use his home CPAP mask. Had a jay discussion with patient regarding utilization of respiratory interventions including incentive spirometry and peak flow. Additionally, encourage patient to attempt to prone as much as possible. Discussed utility of these interventions and goal to prevent need for endotracheal intubation. Patient is in agreement and states that he will try. Patient was noted to be hypokalemic with a potassium of 3.4. He was replaced orally and IV. Goal potassium greater than 4 in the setting of A. fib. Patient currently denies any complaints of headaches, chest pain, palpitations, shortness of breath, pleuritic pain, nausea, vomiting, or abdominal discomfort. Allergies Allergy/AdvReac Type Severity Reaction Status Date / Time testosterone AdvReac Severe "messes" Unverified 02/25/20 13:40 with AFIB Home Medications Medication Instructions Recorded Confirmed Type escitalopram oxalate 20 mg PO HS 02/25/20 03/07/21 History methimazole 15 mg PO HS 02/25/20 03/07/21 History metoprolol tartrate 50 mg PO USEASDIRECTD 02/25/20 03/07/21 History sitagliptin [Januvia] 100 mg PO QAM 02/25/20 03/07/21 History Crestor 40 mg PO DAILY 03/07/21 03/07/21 History semaglutide [Ozempic] 0.25 mg SUBCUT WK 03/07/21 03/07/21 History Patient History Medical History COVID-19 No pertinent family history Paroxysmal atrial fibrillation Surgical History No pertinent past surgical history Social History Smoking Status: Former smoker Hx Alcohol Use: Yes Alcohol type: beer Hx Substance Use: No Preferred Language: Kazakh Communication Ability: Effective R D Manager Required: No Beliefs That Will Affect Care: None Current Living Situation: Spouse Other Information That Helps Us Care for You: No Feels Safe at Home: Yes Safety Concerns: Feels Safe At This Time Assistive Devices: None Review of Systems Review of Systems: A complete 10 point review of systems was reviewed with the patient with pertinent positives and negatives as per history of present illness. All else were negative. Physical Exam Physical Exam: VITAL SIGNS - Vital signs and nursing notes were reviewed. GENERAL - 50-year-old male appearing his stated age who is in no acute distress. Communicates well with provider and answers questions appropriately. SKIN - Without rashes. HEAD - NC/AT. EYES - PERRL with EOMI bilaterally. Sclera anicteric. EARS - No deformities of external structures noted on gross examination bilaterally. NOSE - Midline and without cyanosis. No epistaxis or purulent drainage noted. MOUTH/OROPHARYNX - Without perioral cyanosis. Buccal mucosa pink and moist and without leukoplakia. NECK - Neck with FROM. No nuchal rigidity. LUNGS - Chest wall symmetric without accessory muscle use, intercostals retractions, or central cyanosis. Normal respiratory effort noted. Coarse breath sounds throughout. CARDIAC - RRR with S1/S2. No murmur, rubs, or gallops appreciated. ABDOMEN - Abdominal contour obese without pulsations or visible masses. BS normoactive all four quadrants. No tenderness, palpable masses, hepatosplenomegaly, or ascites noted. EXTREMITIES - No clubbing or peripheral cyanosis. No pretibial edema present. +3/5 radial and dorsalis pedis pulses palpated throughout. +5/5 strength noted in UE/LE bilaterally. NEUROLOGIC - Cranial nerves II through XII grossly intact. Sensory intact to light touch throughout. PSYCH - A&Ox3 and cooperates fully with examiner. Results & Data Results & Data ([facility]) Vital Signs (Past 12 Hours) Vital Signs Temp Pulse Pulse Pulse Resp BP BP 03/11/21 18:00 96 H 31 H 03/11/21 17:58 97 H 24 03/11/21 17:56 108 H 22 143/76 H 03/11/21 17:53 108 H 12 03/11/21 17:30 95 H 21 03/11/21 17:15 91 H 14 03/11/21 17:02 105 H 7 L 124/78 03/11/21 17:00 98 H 30 H 03/11/21 16:45 96 H 13 03/11/21 16:40 89 23 103/65 03/11/21 16:30 91 H 03/11/21 16:16 97 H 03/11/21 16:05 36.7 C 24 113/61 03/11/21 16:00 90 03/11/21 15:45 87 03/11/21 15:30 84 03/11/21 15:15 86 03/11/21 15:00 108 H 03/11/21 14:45 110 H 03/11/21 14:42 82 20 03/11/21 14:30 117 H 03/11/21 14:17 97 H 03/11/21 14:00 111 H 03/11/21 13:45 106 H 03/11/21 13:30 108 H 03/11/21 13:21 132/68 03/11/21 13:15 116 H 03/11/21 13:00 119 H 03/11/21 12:55 130 H 106/73 03/11/21 12:45 120 H 03/11/21 12:30 116 H 03/11/21 12:15 115 H 03/11/21 12:00 112 H 03/11/21 11:45 107 H 03/11/21 11:30 87 03/11/21 11:23 36.8 C 86 16 129/75 03/11/21 11:15 116 H 03/11/21 11:00 88 03/11/21 10:45 84 03/11/21 10:30 107 H 03/11/21 10:15 99 H 03/11/21 10:00 108 H 03/11/21 09:49 131 H 03/11/21 09:30 136 H 03/11/21 09:15 112 H 03/11/21 09:00 108 H 03/11/21 08:45 123 H 03/11/21 08:30 120 H 03/11/21 08:15 141 H 03/11/21 08:00 119 H 03/11/21 07:45 123 H 03/11/21 07:44 36.8 C 94 H 18 124/80 Pulse Ox 03/11/21 18:00 87 L 03/11/21 17:58 92 03/11/21 17:56 92 03/11/21 17:53 03/11/21 17:30 99 03/11/21 17:15 97 03/11/21 17:02 95 03/11/21 17:00 90 03/11/21 16:45 97 03/11/21 16:40 93 03/11/21 16:30 03/11/21 16:16 03/11/21 16:05 98 03/11/21 16:00 03/11/21 15:45 03/11/21 15:30 03/11/21 15:15 03/11/21 15:00 03/11/21 14:45 03/11/21 14:42 90 03/11/21 14:30 03/11/21 14:17 03/11/21 14:00 03/11/21 13:45 03/11/21 13:30 03/11/21 13:21 03/11/21 13:15 03/11/21 13:00 03/11/21 12:55 03/11/21 12:45 03/11/21 12:30 03/11/21 12:15 03/11/21 12:00 03/11/21 11:45 03/11/21 11:30 03/11/21 11:23 90 03/11/21 11:15 03/11/21 11:00 03/11/21 10:45 03/11/21 10:30 03/11/21 10:15 03/11/21 10:00 03/11/21 09:49 03/11/21 09:30 03/11/21 09:15 03/11/21 09:00 03/11/21 08:45 03/11/21 08:30 03/11/21 08:15 03/11/21 08:00 03/11/21 07:45 03/11/21 07:44 91 Coding Level of Care Code Critical Care 1st 30-74 mins Diagnoses Admitted to intensive care unit Z78.9 Pneumonia due to 2019 novel coronavirus U07.1; J12.82 Hypoxia R09.02 ISAC (obstructive sleep apnea) G47.33 Atrial fibrillation with RVR I48.91 HTN (hypertension) I10 Hyperthyroidism E05.90 Diabetes E11.9 Time Spent (min) 35
[2021-03-11] MEDS: REMDESIVIR 100 MG in SODIUM CHLORIDE 0.9% 230 ML IV SCH (20:16)
[2021-03-11] MEDS: SODIUM CHLORIDE 0.9% 10ML FLUSH IV SCH (20:17)
[2021-03-11] MEDS: methIMAzole 5 MG TABLET PO SCH (20:18)
[2021-03-11] MEDS: ESCITALOPRAM OXALATE 20 MG TAB PO SCH (20:21)
[2021-03-12] MEDS: POTASSIUM CHLORIDE / WTR 10 MEQ/100 ML PLCT IV SCH ×2 (00:21→02:22)
[2021-03-12] MEDS: DEXMEDETOMIDINE HCL 400 MCG in 0.9 % SODIUM CHLORIDE 96 ML IV SCH ×7 (00:22→15:44)
[2021-03-12] MEDS: ACETAMINOPHEN 325 MG TAB PO PRN (02:28)
[2021-03-12 04:21] LABS: iSTAT Arterial Blood Gas HCO3 28 meg/L (19-24); iSTAT Arterial Blood Gas pCO2 32 mmHg (35-46); iSTAT Arterial Blood Gas pH 7.55 (7.35-7.45); iSTAT Arterial Blood Gas pO2 62 mmHg (80-95); iSTAT Carbon Dioxide 29 mmol/L (24-31); iSTAT Hematocrit 36 % (42-52); iSTAT Hemoglobin 12.2 g/dl (14.0-18.0); iSTAT Potassium 3.8 mmol/L (3.3-5.0); iSTAT Sodium 135 mmol/L (135-144)
[2021-03-12 04:59] LABS: Mean Corpuscular Hemoglobin 29.1 pg (25-34); Mean Corpuscular Hgb Conc 35.1 g/dL (32-36); Mean Platelet Volume 9.4 fL (7.4-10.4); Platelet Count 376 K/uL (130-400); RDW Coefficient of Variation 13.1 % (11.5-14.5); RDW Standard Deviation 39.3 fL (36.4-46.3); Red Blood Count 4.46 M/uL (4.7-6.1); White Blood Count 20.09 K/uL (4.8-10.8)
[2021-03-12 05:17] LABS: Partial Thromboplastin Ratio 1.9
[2021-03-12 05:21] LABS: Partial Thromboplastin Time 50.4 Seconds (21.0-31.0)
[2021-03-12 05:27] LABS: C Reactive Protein 15.5 mg/dl (0-0.29); Calcium 8.5 mg/dl (8.5-10.1); Creatinine Clr Calc Pharmacy 201.7 ml/min; Est GFR (African American) 129.1; Est GFR (Non-African American) 111.4; Magnesium 2.3 mg/dl (1.8-2.4); Phosphorus 3.3 mg/dl (2.5-4.9)
[2021-03-12 05:28] LABS: Basophils # (auto) 0.02 K/uL (0-0.2); Basophils % (auto) 0.1 %; Eosinophils # (auto) 0.01 K/uL (0-0.5); Immature Granulocytes # (auto) 0.14 K/uL (0.00-0.02); Immature Granulocytes % (auto) 0.7 %; Lymphocytes # (auto) 1.78 K/uL (1.2-3.4); Lymphocytes % (auto) 8.9 %; Monocytes # (auto) 1.18 K/uL (0.11-0.59); Monocytes % (auto) 5.9 %; Neutrophils # (auto) 16.96 K/uL (1.4-6.5); Neutrophils % (auto) 84.4 %
--- NOTE | 2021-03-12 08:40 | XRay Report ---
XR chest 1V portable HISTORY: Shortness of breath. Follow-up. COMPARISON: Chest 03/11/2021. FINDINGS: No pneumothorax. No pleural effusions. The cardiac silhouette remains mildly enlarged. Ther e are low lung volumes. Bilateral mid to lower lung zone airspace opacities are again noted. This leida ears of slightly progressed on the left. IMPRESSION: Slight progression of the bilateral mid to lower lung zone airspace opacities consistent with a pneum onia. ACT 112: Negative or not required by law. Electronically signed by: Mark Ordaz M.D. 03/12/2021 8:38 AM
[2021-03-12] MEDS ORDERED: INSULIN GLARGINE SOLOSTAR 100 UNITS/ML 3 ML PEN SC SCH ×2 (09:00)
[2021-03-12] MEDS: ASPIRIN 81 MG ECTAB PO SCH (09:02)
[2021-03-12] MEDS: HEPARIN SODIUM/DEXTROSE 25,000 UNITS/500 ML BAG IV SCH ×2 (09:02→19:41)
[2021-03-12] MEDS: dilTIAZem HCL 30 MG TAB PO SCH ×2 (09:08→14:12)
[2021-03-12] MEDS: dexAMETHasone 6 MG in SYRINGE 0 ML IV SCH (09:08)
[2021-03-12] MEDS: ROSUVASTATIN CALCIUM 20 MG TAB PO SCH (09:08)
[2021-03-12] MEDS: METOPROLOL TARTRATE 25 MG TAB PO SCH (09:09)
[2021-03-12] MEDS: INSULIN HUMAN NPH SC SCH (09:09)
[2021-03-12] MEDS: INSULIN ASPART 100 UNITS/ML 3 ML PEN SC SCH ×4 (09:37→20:13)
--- NOTE | 2021-03-12 10:56 | Critical Care Progress Note ---
Date of Service March 12, 2021 Assessment & Plan (1) Acute respiratory failure with hypoxia and hypercapnia: 50-year-old male who was admitted to the hospital with COVID-19 pneumonia and was shifted to ICU for respiratory distress on 03/11/2021 -- Acute Hypoxic respiratory failure Secondary to multilobar COVID-19 pneumonia Diagnosed 02/28/2021, admitted 03/07/21 Influenza A/B negative 03/07/2021 s/p remdesivir. Last dose 03/11/21 Continue with dexamethasone Continue with incentive spirometry and flutter valve O2 supplementation to keep O2 saturation between 88-92% --A. fib with RVR Rate controlled on metoprolol Continue with --Hyperthyroidism TSH undetectable, free T4 elevated Patient's methimazole dose has been increased Patient is already on dexamethasone which will cover for thyroid storm which I d oubt is the case --Diabetes type 2 ICU hyperglycemia protocol --Anxiety On escitalopram at home We will add Seroquel, QTC 467 --ISAC On nasal CPAP at home --Prophylaxis VTE: Heparin drip GI: Protonix Lines: Peripheral Diet: Cardiac Plan: In/out: -952, urine output 4425, patient is +3 L since coming to the hospital We will give another dose of Lasix today. Patient CRP did increase today to 15. Patient is doing better when it comes to his oxygen requirement. He is not in any respiratory distress. He still requiring Precedex low-dose. We will try to titrated up gradually. I do think his anxiety is playing a role for his respiratory distress when he does get it on top of COVID-19 pneumonia. Seroquel has been added to help with his anxiety. Increase the dexamethasone dose to 10 mg daily given the increase in CRP. If the CRP is still trending up we will consider Tocilizumab. I have personally spent 44 minutes of critical care time in the direct manage ment of this patient. This is a life/limb threatening event. This includes time spent evaluating pa tient, direct bedside care, chart review, placing orders, interpretation of diagnostic studies, discussion with consultants, patient, and family members, as well as other required patient management activities. This time is exclusive of all separately billable procedures, and teaching time and separate from and in addition to any other critical care service time. Please note the above document was generated using voice recognition software. It may contain grammatical, syntax or spelling errors. (2) Atrial fibrillation with RVR: (3) Admitted to intensive care unit: (4) Pneumonia due to 2019 novel coronavirus: Admission and Anticipated Discharge Date Admission Date: March 07, 2021 Subjective Patient seen and examined at bedside. No acute distress, no adverse events overnight. Patient was on Precedex 0.6 at the time of examination. He was on 40 L, 60% saturating 92%. He was bit somnolent. Upon waking up he said he was breathing better. Said he is not coughing a lot. Denies any chest pain, no headache, no nausea, no vomiting. T-max 37.9 Review of Systems Review of Systems: All systems reviewed & are unremarkable except as noted in Subjective Physical Exam Physical Exam: Constitutional: No acute distress HEENT: EOMI, PERRLA Respiratory system: Decreased air entry bilaterally, no wheeze, rhonchi, posit prosper crackles bilaterally CVS: S1-S2 positive, no murmurs or gallops Abdomen: Soft, nontender, nondistended, positive bowel sounds x4 Extremities: +2 pulses bilaterally radialis/ dorsalis pedis, no cyanosis, no edema Neuro: Awake alert oriented x3 Psych: Normal mood and affect G/U: No Bhatt Skin: no rashes, warm and dry Lymphatic: no cervical or axillary lymphadenopathy Results & Data Results & Data ([facility]) Vital Signs (Past 12 Hours) Vital Signs Temp Pulse Pulse Resp BP Pulse Ox 03/12/21 10:15 37.5 C 03/12/21 10:00 82 28 H 97 03/12/21 09:57 81 32 H 120/82 94 03/12/21 09:27 74 26 H 110/67 86 L 03/12/21 09:00 76 33 H 97 03/12/21 08:58 78 30 H 126/84 97 03/12/21 08:27 81 29 H 134/87 96 03/12/21 08:03 80 28 H 93 03/12/21 08:00 89 29 H 93 03/12/21 07:57 85 26 H 112/70 92 03/12/21 07:27 76 35 H 114/78 90 03/12/21 07:00 81 32 H 94 03/12/21 06:56 76 34 H 136/88 93 03/12/21 06:27 77 31 H 130/79 93 03/12/21 06:00 76 33 H 92 03/12/21 05:57 82 30 H 135/80 92 03/12/21 05:27 87 32 H 140/84 93 03/12/21 05:00 82 31 H 96 03/12/21 04:57 78 33 H 138/80 96 03/12/21 04:27 84 35 H 111/68 98 03/12/21 04:00 93 H 35 H 98 03/12/21 03:57 87 33 H 133/84 98 03/12/21 03:31 105 H 32 H 98 03/12/21 03:26 86 29 H 124/65 89 L 03/12/21 03:00 89 17 86 L 03/12/21 02:56 37.9 C H 101 H 28 H 128/65 75 L 03/12/21 02:27 100 H 33 H 107/62 88 L 03/12/21 02:00 90 35 H 92 03/12/21 01:56 107 H 25 H 116/83 95 03/12/21 01:27 98 H 31 H 112/77 94 03/12/21 01:00 96 H 32 H 95 03/12/21 00:56 94 H 29 H 97/74 L 95 03/12/21 00:27 96 H 29 H 108/65 92 03/12/21 00:00 94 H 28 H 95 03/11/21 23:59 102 H 03/11/21 23:56 106 H 30 H 114/67 91 03/11/21 23:26 37.2 C 100 H 29 H 128/75 96 03/11/21 23:00 101 H 21 88 L 03/11/21 22:56 116 H 33 H 130/79 90 03/11/21 22:55 98 H 26 H 92 03/12/21 04:47 03/12/21 04:47 Coding Level of Care Code Critical Care 1st 30-74 mins Diagnoses Acute respiratory failure with hypoxia and hypercapnia J96.01; J96.02 Atrial fibrillation with RVR I48.91 Admitted to intensive care unit Z78.9 Pneumonia due to 2019 novel coronavirus U07.1; J12.82 Time Spent (min) 44
[2021-03-12] MEDS ORDERED: dexAMETHasone 4 MG in SYRINGE 0 ML IV ONE (11:00)
[2021-03-12] MEDS: CHOLESTYRAMINE LIGHT 4 GM PKT PO SCH ×2 (11:33→20:16)
[2021-03-12] MEDS: QUEtiapine FUMARATE 25 MG TABLET PO SCH ×2 (11:33→20:17)
[2021-03-12] MEDS: PANTOprazole 40 MG TAB PO SCH (11:33)
[2021-03-12] MEDS ORDERED: FUROSEMIDE 40 MG in SYRINGE 0 ML IV ONE (11:45)
[2021-03-12] MEDS ORDERED: INSULIN HUMAN NPH SC ONE (12:30)
--- NOTE | 2021-03-12 12:44 | Pharmacy Report ---
Pharmacy Glycemic Short Note 2 - Date of Service March 12, 2021 - Glycemic Short BSG Results (Last 24 hours): 03/11/21 03/11/21 03/11/21 16:03 18:23 20:23 Glucose 178 H POC Glucose 223 H 211 H 03/12/21 03/12/21 03/12/21 04:47 09:28 11:43 Glucose 133 H POC Glucose 215 H 260 H OUTPATIENT ANTIDIABETIC REGIMEN: * ciarra Loyd * A1c 12.6% ASSESSMENT: 03/12 * Patient was transferred to ICU for increasing oxygen needs and possible need for mechanical ventilation * This AM patient remained on hiflow with dexmedetomidine infusion running * Over the last 24 hrs he has received 181 units SQ insulin. Anticipate this patient will require 220+ units of insulin per day to achieve targets * Fasting hyperglycemia noted on AM labs despite receiving 65 units NPH and 60 units Lantus yesterday. Given needs for respiratory support today, I did back off on the Lantus dose due to concerns pt would not be able to tolerate his diet well today. Despite this, his BSGs continue to rise. Will utilize a higher dose of NPH to offset steroid induced hyperglycemia. Dexamethasone dose has been increased to 10mg IV daily. Will up-titrate Lantus dose. * Novolog will be given 6x daily rather than 4x and both CF and CR doses will be increased PLAN FOR INPATIENT GLYCEMIC CONTROL: * Hold outpatient oral diabetes medications * Basal insulin * Lantus 40 SQ this AM 20 units this PM, then 35 units BID starting tomorrow * NPH 20 additional units now, then 65 SQ units this AM - to cover dexamethasone * Bolus insulin -tighten CF/CR * NovoLog per scale Q 4 hrs * Goal Range: Low 110 mg/dL - High 140 mg/dL * Correction Factor: 10 mg/dL/unit * Nutritional / Prandial insulin per carb ratio of 1 unit per 2 grams CHO consumed PLAN FOR DISCHARGE: * A1c = 12.6 % on 03/08/21 * Goal A1c = below 7 % based on age and comorbidities * A1c is greater than or equal to 10% --> consider triple therapy with metformin + basal insulin + (GLP1-RA OR prandial insulin). May need to continue additional antidiabetic agent based on patient specific factors (efficacy, hypo risk, weight gain/loss, side effects, cost) * Unsure why patient is not on metformin - assuming patient has tried this in the past without success * Recommend continuing Ozempic * Recommend adding basal insulin dosing TBD once steroids tapered (exact formulation TBD based on insurance coverage) * Recommend adding bolus insulin with meals dosing TBD once steroids tapered (exact formulation TBD based on insurance coverage) * Support Patient Self-Management * Healthy Lifestyle (diet, exercise, and smoking cessation) * Disease self-management (SMBG) * Prevention of complications (BP, Lipid goals, Immunizations) * Consider outpatient Diabetes Self-Management Education & Support
--- NOTE | 2021-03-12 12:46 | Communication Note ---
Date of Service: March 12, 2021 Patient chart, telemetry, medications reviewed and course discussed personally with caregivers. Patient remains in atrial fibrillation though with good ventricular rate control. Patient anticoagulated with IV heparin Plan continue current medical therapies. Ultimate goal is to switch IV anticoagulation to oral Eliquis minimum 1 to 3-month course once pulmonary/infectious status stable
--- NOTE | 2021-03-12 12:51 | Hospitalist Progress Note ---
Date of Service March 12, 2021 Assessment & Plan (1) Pneumonia due to 2019 novel coronavirus: (2) Hypoxia: Acute hypoxic respiratory failure secondary to COVID-19 pneumonia Continue dexamethasone and remdesivir CRP 5.63-->5.12-->3.89-->4.48-->15 Marked increase in CRP We will continue to monitor and may need Tocilizumab if indicated Continue to monitor inflammatory markers Continue oxygen supplementation. Continue high flow nasal oxygen Continue intensive care Pulp[employer] Buyer on board Has been getting Lasix IV daily for the past few days with electrolyte repletion as needed Got IV Lasix today as well Continue Precedex to help with anxiety which is contributing to hypoxia Seroquel was added (3) Atrial fibrillation with RVR: (4) Paroxysmal atrial fibrillation: Patient has history of proximal A. fib. Has been following with cardiology. Had declined anticoagulation in the past and prefers only aspirin. Patient developed A. fib with RVR inpatient Was started on Cardizem drip now off Continue heparin drip. Import Coordinator on board Rate is controlled. Continue Cardizem p.o. 30 3 times daily in addition to Lopressor 75 twice daily Plan to transition to Eliquis eventually for long-term anticoagulation. (5) ISAC (obstructive sleep apnea): Per segment producer, patient has severe ISAC CPAP HS (6) Hyperthyroidism: Review of previous thyroid function tests in [facility] showed TSH was 0.81 in June 02, 2020. In view of patient's current clinical condition, A. fib with RVR; thyroid function test was done to assess control of patient's hypothyroidism. This showed hyperthyroidism is currently not controlled. TSH was less than 0.005 and free T4 was 2.30 On 03/10/21, I spoke to [facility] consulting solution manager Dr. Ellis via the transfer center. I discussed the patient with him and findings. He recommended to increase methimazole to 40 mg daily and start cholestyramine 4 g 4 times daily only while inpatient. He also recommended steroid and beta blockade but patient is already on dexamethasone for Covid 19 pneumonia and Lopressor for A. fib with RVR. He also recommended to monitor LFTs as well as WBC while on increased dose of methimazole as well as on discharge. Recommends to continue increased methimazole dose on discharge and patient to follow up with TFT/LFT/WBC check as well as Novelty Worker follow up in 3 weeks Methimazole 40mg ordered Continue cholestyramine at BID (7) Diabetes: Home antidiabetic regimen on hold. Patient diabetes is poorly controlled A1c is 12.6 Pharmacy on board for glycemic management while inpatient especially on dexamethasone therapy. We will get nurse educator and may need insulin when patient is stable for discharge (8) DVT prophylaxis: Heparin drip Admission and Anticipated Discharge Date Admission Date: March 07, 2021 Subjective Patient was transferred to the ICU yesterday evening due to worsening oxygen requirements and anxiety Was started on Precedex and continued on high flow. Patient seen and examined. Is drowsy but arousable Currently on high flow nasal cannula at 5 L/min with FiO2 of 55 Still reports fatigue, shortness of breath and cough. Denies any chest pain or dizziness today Review of Systems Constitutional: + fatigue and + malaise; no fever and no chills Respiratory: + cough, + dyspnea and + dyspnea on exertion Cardiovascular: + dyspnea and + dyspnea on exertion Musculoskeletal: + muscle weakness Neurologic: no headache(s) and no confusion Physical Exam Constitutional: + obese; no acute distress Drowsy but arousable Eyes: PERRL, conjunctivae normal, anicteric sclerae ENMT: external ear and nose normal, oropharynx normal Respiratory: normal respiratory effort; no respiratory distress Auscultation: + diminished lung sounds; no crackles On high flow nasal cannula Cardiovascular: Rate/Rhythm: regular rate and + irregularly irregular S1-S2 Gastrointestinal (Abdomen): normal bowel sounds, soft, nontender, no h epatosplenomegaly Musculoskeletal: No pedal edema Neurologic: PERRL, EOMI, accommodation nl, no face palsy, no dysarthria Moves all extremities Psychiatric: Orientation: alert and oriented x 3 Drowsy but arousable Results & Data Results & [facility] ([facility]) Vital Signs (Past 12 Hours) Vital Signs Temp Pulse Pulse Resp BP Pulse Ox 03/12/21 10:46 76 18 90 03/12/21 10:15 37.5 C 03/12/21 10:00 82 28 H 97 03/12/21 09:57 81 32 H 120/82 94 03/12/21 09:27 74 26 H 110/67 86 L 03/12/21 09:00 76 33 H 97 03/12/21 08:58 78 30 H 126/84 97 03/12/21 08:27 81 29 H 134/87 96 03/12/21 08:03 80 28 H 93 03/12/21 08:00 89 29 H 93 03/12/21 07:57 85 26 H 112/70 92 03/12/21 07:27 76 35 H 114/78 90 03/12/21 07:00 81 32 H 94 03/12/21 06:56 76 34 H 136/88 93 03/12/21 06:27 77 31 H 130/79 93 03/12/21 06:00 76 33 H 92 03/12/21 05:57 82 30 H 135/80 92 03/12/21 05:27 87 32 H 140/84 93 03/12/21 05:00 82 31 H 96 03/12/21 04:57 78 33 H 138/80 96 03/12/21 04:27 84 35 H 111/68 98 03/12/21 04:00 93 H 35 H 98 03/12/21 03:57 87 33 H 133/84 98 03/12/21 03:31 105 H 32 H 98 03/12/21 03:26 86 29 H 124/65 89 L 03/12/21 03:00 89 17 86 L 03/12/21 02:56 37.9 C H 101 H 28 H 128/65 75 L 03/12/21 02:27 100 H 33 H 107/62 88 L 03/12/21 02:00 90 35 H 92 03/12/21 01:56 107 H 25 H 116/83 95 03/12/21 01:27 98 H 31 H 112/77 94 03/12/21 01:00 96 H 32 H 95 03/12/21 00:56 94 H 29 H 97/74 L 95 Laboratory Results Abnormal lab results 03/11/21 03/11/21 03/11/21 Range/Units 14:11 16:03 18:23 WBC (4.8-10.8) K/uL RBC (4.7-6.1) M/uL Hgb (14.0-18.0) g/dL POC Hgb (14.0-18.0) g/dl Hct (42-52) % POC Hct (42-52) % Neut # (Auto) (1.4-6.5) K/uL [place] # (Auto) (0.11-0.59) K/uL Immature Gran # (Auto) (0.00-0.02) K/uL APTT 61.7 H* (21.0-31.0) Seconds POC pH (7.35-7.45) POC pCO2 (35-46) mmHg POC pO2 (80-95) mmHg POC HCO3 (19-24) charlie/L POC Base Excess (-9-1.8) charlie/L Potassium 3.4 L (3.5-5.1) mmol/L Carbon Dioxide 34 H (21-32) mmol/L BUN/Creatinine Ratio (10-20) Glucose 178 H (70-99) mg/dl POC Glucose 223 H (70-99) mg/dl AST (15-37) U/L C-Reactive Protein (0-0.29) mg/dl 03/11/21 03/12/21 03/12/21 Range/Units 20:23 03:36 04:47 WBC (4.8-10.8) K/uL RBC (4.7-6.1) M/uL Hgb (14.0-18.0) g/dL POC Hgb 12.2 L (14.0-18.0) g/dl Hct (42-52) % POC Hct 36 L (42-52) % Neut # (Auto) (1.4-6.5) K/uL [place] # (Auto) (0.11-0.59) K/uL Immature Gran # (Auto) (0.00-0.02) K/uL APTT (21.0-31.0) Seconds POC pH 7.55 H* (7.35-7.45) POC pCO2 32 L (35-46) mmHg POC pO2 62 L (80-95) mmHg POC HCO3 28 H (19-24) charlie/L POC Base Excess 6.0 H (-9-1.8) charlie/L Potassium (3.5-5.1) mmol/L Carbon Dioxide (21-32) mmol/L BUN/Creatinine Ratio 21.0 H (10-20) Glucose 133 H (70-99) mg/dl POC Glucose 211 H (70-99) mg/dl AST 11 L (15-37) U/L C-Reactive Protein 15.50 H (0-0.29) mg/dl 03/12/21 03/12/21 03/12/21 Range/Units 04:47 04:47 09:28 WBC 20.09 H (4.8-10.8) K/uL RBC 4.46 L (4.7-6.1) M/uL Hgb 13.0 L (14.0-18.0) g/dL POC Hgb (14.0-18.0) g/dl Hct 37.0 L (42-52) % POC Hct (42-52) % Neut # (Auto) 16.96 H (1.4-6.5) K/uL [place] # (Auto) 1.18 H (0.11-0.59) K/uL Immature Gran # (Auto) 0.14 H (0.00-0.02) K/uL APTT 50.4 H* (21.0-31.0) Seconds POC pH (7.35-7.45) POC pCO2 (35-46) mmHg POC pO2 (80-95) mmHg POC HCO3 (19-24) charlie/L POC Base Excess (-9-1.8) charlie/L Potassium (3.5-5.1) mmol/L Carbon Dioxide (21-32) mmol/L BUN/Creatinine Ratio (10-20) Glucose (70-99) mg/dl POC Glucose 215 H (70-99) mg/dl AST (15-37) U/L C-Reactive Protein (0-0.29) mg/dl 03/12/21 Range/Units 11:43 WBC (4.8-10.8) K/uL RBC (4.7-6.1) M/uL Hgb (14.0-18.0) g/dL POC Hgb (14.0-18.0) g/dl Hct (42-52) % POC Hct (42-52) % Neut # (Auto) (1.4-6.5) K/uL [place] # (Auto) (0.11-0.59) K/uL Immature Gran # (Auto) (0.00-0.02) K/uL APTT (21.0-31.0) Seconds POC pH (7.35-7.45) POC pCO2 (35-46) mmHg POC pO2 (80-95) mmHg POC HCO3 (19-24) charlie/L POC Base Excess (-9-1.8) charlie/L Potassium (3.5-5.1) mmol/L Carbon Dioxide (21-32) mmol/L BUN/Creatinine Ratio (10-20) Glucose (70-99) mg/dl POC Glucose 260 H (70-99) mg/dl AST (15-37) U/L C-Reactive Protein (0-0.29) mg/dl
[2021-03-12] MEDS ORDERED: ATROPINE SULFATE 0.1 MG/ML 10ML SYR IV ONE ×3 (17:41→18:15)
[2021-03-12] MEDS ORDERED: DOPamine 400MG / 250ML D5W IV ONE (17:43)
[2021-03-12] MEDS ORDERED: STAT IV Infusion **Titration per Protocol STA (17:45)
[2021-03-12] MEDS ORDERED: ATROPINE SULFATE 0.1 MG/ML 10ML SYR IV STA (17:57)
[2021-03-12] MEDS ORDERED: ATROPINE SULFATE 0.1 MG/ML 5ML SYR IV STA (18:00)
[2021-03-12] MEDS: DOPamine / D5W 400 MG/250 ML BAG IV SCH (18:01)
--- NOTE | 2021-03-12 18:34 | Communication Note ---
Date of Service: March 12, 2021 Critical CARE addendum: Was called to evaluate the patient bedside as patient was getting bradycardic. Patient's history is that he was in A. fib with RVR and started on diltiazem 30 mg p.o. every 8 hours along with increasing dose of his metoprolol to 75 mg every 12. Patient got metoprolol 75 mg early in the morning and last dose of diltiazem was 30 mg at 1 PM today. Patient was on Precedex 0.1 also. Precedex was stopped as soon as patient started to have bradycardic episodes. Patient is hemodynamically stable. He wanted to speak with the physician in person before putting pads on. I did discuss that his heart rate is on the lower side most likely is from the medication that he got. He was a bit frustrated why his heart rate was high and now it is low. I did explain to him that sometimes medication makes heart rate lower than expected. I gave the patient 0.5 mg of atropine. We will repeat one MG if need be. Start the patient on dopamine 5. If the patient heart rate is still not improving and/or patient gets hypotensive we will give the patient calcium gluconate Think about starting the patient on insulin drip with D5 as an antidote for calcium channel as well as beta-kumar. 5 mg of glucagon can also be thought of. Patient finally calmed down and apologize for giving hard time to the nurse as well as the medical staff. I have personally spent additional 23 minutes of critical care time in the direct management of this patient. This is a life/limb threatening event. This includes time spent evaluating patient, direct bedside care, chart review, placing orders, interpretation of diagnostic studies, discussion with consultants, patient, and family members, as well as other required patient management activities. This time is exclusive of all separately billable procedures, and teaching time and separate from and in addition to any other critical care service time. Please note the above document was generated using voice recognition software. It may contain grammatical, syntax or spelling errors. Coding Level of Care Code Critical Care 1st 30-74 mins Time Spent (min) 23
[2021-03-12] MEDS ORDERED: CALCIUM GLUCONATE 10% 1,000 MG in SODIUM CHLORIDE 0.9% 50 ML IV ONE (19:13)
[2021-03-12] MEDS ORDERED: INSULIN GLARGINE SOLOSTAR 100 UNITS/ML 3 ML PEN SC STA (20:09)
[2021-03-12] MEDS: methIMAzole 5 MG TABLET PO SCH (20:17)
[2021-03-12 20:24] LABS: BUN Creatinine Ratio 25.8 (10-20); Blood Urea Nitrogen 21 mg/dl (7-18); Calcium 9.2 mg/dl (8.5-10.1); Carbon Dioxide 27 mmol/L (21-32); Chloride 96 mmol/L (98-107); Creatinine Clr Calc Pharmacy 169.4 ml/min; Est GFR (African American) 120.1; Est GFR (Non-African American) 103.6; Glucose 312 mg/dl (70-99); Magnesium 2.3 mg/dl (1.8-2.4); Sodium 133 mmol/L (136-145); Troponin I < 0.015 ng/ml (0-0.045)
[2021-03-12 20:35] LABS: Beta-Hydroxybutyrate 8.43 mg/dl (0.2-2.81)
[2021-03-12] MEDS: guaiFENesin SUGAR FREE 200 MG/10 ML UDC PO PRN (20:38)
[2021-03-12] MEDS: ESCITALOPRAM OXALATE 20 MG TAB PO SCH (20:39)
[2021-03-12] MEDS ORDERED: INSULIN GLARGINE SOLOSTAR 100 UNITS/ML 3 ML PEN SC ONE (21:00)
[2021-03-13] MEDS: INSULIN ASPART 100 UNITS/ML 3 ML PEN SC SCH ×7 (00:02→23:04)
[2021-03-13 05:30] LABS: Hematocrit (blood only) 37.2 % (42-52); Hemoglobin 13.2 g/dL (14.0-18.0); Mean Corpuscular Hemoglobin 29.2 pg (25-34); Mean Corpuscular Hgb Conc 35.5 g/dL (32-36); Mean Corpuscular Volume 82.3 fL (80-100); Mean Platelet Volume 9.8 fL (7.4-10.4); Platelet Count 472 K/uL (130-400); RDW Coefficient of Variation 13.3 % (11.5-14.5); RDW Standard Deviation 40.2 fL (36.4-46.3); Red Blood Count 4.52 M/uL (4.7-6.1); White Blood Count 16.34 K/uL (4.8-10.8)
[2021-03-13 05:33] LABS: Partial Thromboplastin Ratio 1.6; Partial Thromboplastin Time 42.6 Seconds (21.0-31.0)
[2021-03-13 06:13] LABS: BUN Creatinine Ratio 24.7 (10-20); Calcium 8.6 mg/dl (8.5-10.1); Creatinine Clr Calc Pharmacy 201.7 ml/min; Est GFR (African American) 129.1; Est GFR (Non-African American) 111.4; Magnesium 2.4 mg/dl (1.8-2.4); Phosphorus 4.1 mg/dl (2.5-4.9); Potassium 3.3 mmol/L (3.5-5.1)
[2021-03-13] MEDS ORDERED: POTASSIUM CHLORIDE CRTAB 20 MEQ TABCR PO STA (06:16)
[2021-03-13] MEDS: HEPARIN SODIUM/DEXTROSE 25,000 UNITS/500 ML BAG IV SCH ×3 (06:20→13:43)
[2021-03-13] MEDS: POTASSIUM CHLORIDE / WTR 10 MEQ/100 ML PLCT IV SCH ×3 (06:41→10:39)
--- NOTE | 2021-03-13 07:58 | XRay Report ---
SINGLE VIEW CHEST CLINICAL HISTORY: Hypoxia. FINDINGS: An AP, portable, semierect chest radiograph is compared to study performed earlier the same day 03/12/2021 and correlated with chest CT dated 03/07/2021. The examination is degraded by portable technique and patient rotation. The heart is enlarged. Multifocal airspace consolidation is similar to previous.. No large pleural effusion or pneumothorax is seen. The bony thorax is grossly intact. D egenerative change is noted in the left shoulder. IMPRESSION: 1. Multifocal airspace consolidation has not significantly changed as compared to today's earlier sherlyn dy. 2. Cardiomegaly. ACT 112: Negative or not required by law. Electronically signed by: Konstantin Dover M.D. 03/13/2021 7:57 AM
[2021-03-13] MEDS ORDERED: METOPROLOL TARTRATE 50 MG TAB PO SCH (08:00)
[2021-03-13] MEDS: ROSUVASTATIN CALCIUM 20 MG TAB PO SCH (08:24)
[2021-03-13] MEDS: ASPIRIN 81 MG ECTAB PO SCH (08:25)
[2021-03-13] MEDS: guaiFENesin SUGAR FREE 200 MG/10 ML UDC PO PRN ×3 (08:25→19:51)
[2021-03-13] MEDS: QUEtiapine FUMARATE 25 MG TABLET PO SCH (08:26)
[2021-03-13] MEDS: PANTOprazole 40 MG TAB PO SCH (08:26)
[2021-03-13] MEDS: dexAMETHasone 10 MG in SYRINGE 0 ML IV SCH (08:42)
--- NOTE | 2021-03-13 08:44 | XRay Report ---
XR chest 1V portable CLINICAL HISTORY: f/u COMPARISON STUDY: Chest CT March 07, 2021. Chest radiograph March 12, 2021. FINDINGS: Lung volumes are mildly diminished. There is no pneumothorax. There may be a trace left ple ural effusion. Multifocal bilateral airspace opacities have slightly progressed. Cardiomegaly is unch anged. Mediastinal widening is unchanged. IMPRESSION: Subtle progression of multifocal bilateral airspace opacities consistent with an infecti ous process. ACT 112: Negative or not required by law. Electronically signed by: Simon Swan M.D. 03/13/2021 8:43 AM
[2021-03-13] MEDS ORDERED: INSULIN HUMAN NPH SC SCH (09:00)
[2021-03-13] MEDS ORDERED: LORazepam 1 MG/2 ML VIAL IV PRN (09:45)
[2021-03-13] MEDS: CHOLESTYRAMINE LIGHT 4 GM PKT PO SCH ×2 (10:38→20:24)
[2021-03-13] MEDS: INSULIN GLARGINE SOLOSTAR 100 UNITS/ML 3 ML PEN SC SCH ×2 (10:39→19:54)
[2021-03-13] MEDS: ENOXAPARIN INJ 120 MG/0.8 ML SYR SQ SCH ×2 (10:40→22:58)
[2021-03-13] MEDS ORDERED: [UNRECOGNIZED DRUG - REMARK] ONE (11:00)
--- NOTE | 2021-03-13 11:03 | Critical Care Progress Note ---
Date of Service March 13, 2021 Assessment & Plan (1) Acute respiratory failure with hypoxia and hypercapnia: 50-year-old male who was admitted to the hospital with COVID-19 pneumonia and was shifted to ICU for respiratory distress on 03/11/2021 -- Acute Hypoxic respiratory failure Secondary to multilobar COVID-19 pneumonia Diagnosed 02/28/2021, admitted 03/07/21 Influenza A/B negative 03/07/2021 CRP 15--> 10 s/p remdesivir. Last dose 03/11/21 Continue with dexamethasone Continue with incentive spirometry and flutter valve O2 supplementation to keep O2 saturation between 88-92% --Bradycardia with sinus pauses Appreciated on the evening of 03/12/2021 Resolved Resume rate control medication gradually --A. fib with RVR Rate controlled on metoprolol --Hyperthyroidism TSH undetectable, free T4 elevated Patient's methimazole dose has been increased Patient is already on dexamethasone which will cover for thyroid storm which I doubt is the case --Diabetes type 2 ICU hyperglycemia protocol --Anxiety On escitalopram at home --ISAC On nasal CPAP at home --Prophylaxis VTE: Heparin drip GI: Protonix Lines: Peripheral Diet: Cardiac Plan: In/out: - 1077, urine output 3510 Chest x-ray from today is a poor inspiratory film. There is opacities appreciated bilaterally more on the left side. Advised the patient to sleep on the right side or on the belly but will also help with oxygenation. Dopamine has been off. Patient anxiety is better controlled I will think will have a need to restart Precedex. Resume metoprolol 50 mg twice daily and gradually titrate up for heart rate less than 110. T-max 37.9 Hypokalemia being replaced CRP is trending down Precedex has been off. Seroquel was added but patient's QTC is increasing. We will discontinue it We will try to get patients on CPAP so he can use it at night. He has not been using CPAP since coming to the hospital as he is not able to tolerate the full facemask. I have personally spent 40 minutes of critical care time in the direct management of this patient. This is a life/limb threatening event. This includes time spent evaluating patient, direct bedside care, chart review, placing orders, interpretation of diagnostic studies, discussion with consultants, patient, and family members, as well as other required patient management activities. This time is exclusive of all separately billable procedures, and teaching time and separate from and in addition to any other critical care service time. Please note the above document was generated using voice recognition software. It may contain grammatical, syntax or spelling errors. (2) Atrial fibrillation with RVR: (3) Admitted to intensive care unit: (4) Pneumonia due to 2019 novel coronavirus: Admission and Anticipated Discharge Date Admission Date: March 07, 2021 Subjective Patient seen and examined at bedside. No adverse events overnight. No acute distress. Patient was on 50 L, 85% of the time of examination saturating 93%. He was talking in full sentences. Denied any shortness of breath. Does complain of cough but is not able to bring any phlegm up. Has been using incentive spirometry and flutter valve. Yesterday evening patient had sinus pauses. His Cardizem and metoprolol were stopped. He was given calcium gluconate as well as 1 atropine and was started on dopamine drip. Dopamine drip has been stopped. His heart rate is in the 110s right now. Review of Systems Review of Systems: All systems reviewed & are unremarkable except as noted in Subjective Physical Exam Physical Exam: Constitutional: No acute distress HEENT: EOMI, PERRLA Respiratory system: Decreased air entry bilaterally, no wheeze, rhonchi, positive crackles bilaterally CVS: S1-S2 positive, no murmurs or gallops Abdomen: Soft, nontender, nondistended, positive bowel sounds x4 Extremities: +2 pulses bilaterally radialis/ dorsalis pedis, no cyanosis, no edema Neuro: Awake alert oriented x3 Psych: Normal mood and affect G/U: Positive Bhatt Skin: no rashes, warm and dry Lymphatic: no cervical or axillary lymphadenopathy Results & Data Results & Data ([facility]) Vital Signs (Past 12 Hours) Vital Signs Temp Pulse Pulse Resp BP Pulse Ox 03/13/21 07:20 105 H 20 88 L 03/13/21 06:27 101 H 25 H 116/74 95 03/13/21 06:00 88 22 93 03/13/21 05:27 96 H 20 122/80 94 03/13/21 04:00 37.0 C 89 18 106/55 L 92 03/13/21 03:57 96 H 16 106/55 L 90 03/13/21 03:47 100 H 11 L 97/46 L 95 03/13/21 03:37 72 27 H 94 03/13/21 03:30 85 26 H 95 03/13/21 03:27 84 26 H 88/50 L 99 03/13/21 03:00 80 26 H 99 03/13/21 02:57 93 H 25 H 92/52 L 100 03/13/21 02:30 90 97 03/13/21 02:27 92 H 91/47 L 93 03/13/21 02:25 91 H 19 80/47 L 94 03/13/21 02:11 77 28 H 99 03/13/21 02:10 94 H 29 H 108/66 99 03/13/21 01:25 77 31 H 109/68 99 03/13/21 00:25 36.9 C 87 20 110/65 96 03/12/21 23:40 82 22 96 03/12/21 23:25 89 2 L 107/63 95 03/12/21 23:00 89 19 91 03/13/21 04:59 03/13/21 04:59 Coding Level of Care Code Critical Care 1st 30-74 mins Diagnoses Acute respiratory failure with hypoxia and hypercapnia J96.01; J96.02 Atrial fibrillation with RVR I48.91 Admitted to intensive care unit Z78.9 Pneumonia due to 2019 novel coronavirus U07.1; J12.82 Time Spent (min) 40
[2021-03-13] MEDS: DOPamine / D5W 400 MG/250 ML BAG IV SCH (11:23)
--- NOTE | 2021-03-13 12:14 | Pharmacy Report ---
Pharmacy Glycemic Short Note 2 - Date of Service March 13, 2021 - Glycemic Short BSG Results (Last 24 hours): 03/12/21 03/12/21 03/12/21 16:27 19:39 19:47 Glucose 312 H* POC Glucose 294 H 350 H* 03/13/21 03/13/21 03/13/21 00:01 03:48 04:59 Glucose 121 H POC Glucose 265 H 164 H 03/13/21 03/13/21 08:52 11:01 Glucose POC Glucose 142 H 137 H OUTPATIENT ANTIDIABETIC REGIMEN: * ciarra Loyd * A1c 12.6% ASSESSMENT: 03/13 * Glycemic control was poor over the last 24 hrs. * 257 units SQ insulin administered over the last 24 hrs, however BSGs did climb as high as 350 yesterday evening and remained above goal until this AM * Fasting BSG 142 this AM after receiving a total of 155 units basal (70 units Lantus + 85 units NPH) yesterday as well as 52 units Novolog correction overnight. * Will escalate NPH AM dose, will continue with yesterday's change to Lantus. * Will also escalate Novolog prandial insulin w/ breakfast 03/12 * Patient was transferred to ICU for increasing oxygen needs and possible need for mechanical ventilation * This AM patient remained on hiflow with dexmedetomidine infusion running * Over the last 24 hrs he has received 181 units SQ insulin. Anticipate this patient will require 220+ units of insulin per day to achieve targets * Fasting hyperglycemia noted on AM labs despite receiving 65 units NPH and 60 units Lantus yesterday. Given needs for respiratory support today, I did back off on the Lantus dose due to concerns pt would not be able to tolerate his diet well today. Despite this, his BSGs continue to rise. Will utilize a higher dose of NPH to offset steroid induced hyperglycemia. Dexamethasone dose has been increased to 10mg IV daily. Will up-titrate Lantus dose. * Novolog will be given 6x daily rather than 4x and both CF and CR doses will be increased PLAN FOR INPATIENT GLYCEMIC CONTROL: * Hold outpatient oral diabetes medications * Basal insulin * Lantus 35 units BID * NPH 100 SQ units Q AM - to cover dexamethasone * Bolus insulin -tighten CF/CR with breakfast, then return to prior dosing * NovoLog per scale Q 4 hrs * Goal Range: Low 110 mg/dL - High 140 mg/dL * Correction Factor: 7 mg/dL/unit w/ breakfast today, then 8mg/dL/unit thereafter * Nutritional / Prandial insulin per carb ratio of 1 unit per 1.5 grams CHO consumed w/ breakfast today, then resume 1 unit per 2gm CHO consumed PLAN FOR DISCHARGE: * A1c = 12.6 % on 03/08/21 * Goal A1c = below 7 % based on age and comorbidities * A1c is greater than or equal to 10% --> consider triple therapy with metformin + basal insulin + (GLP1-RA OR prandial insulin). May need to continue additional antidiabetic agent based on patient specific factors (efficacy, hypo risk, weight gain/loss, side effects, cost) * Unsure why patient is not on metformin - assuming patient has tried this in the past without success * Recommend continuing Ozempic * Recommend adding basal insulin dosing TBD once steroids tapered (exact formulation TBD based on insurance coverage) * Recommend adding bolus insulin with meals dosing TBD once steroids tapered ( exact formulation TBD based on insurance coverage) * Support Patient Self-Management * Healthy Lifestyle (diet, exercise, and smoking cessation) * Disease self-management (SMBG) * Prevention of complications (BP, Lipid goals, Immunizations) * Consider outpatient Diabetes Self-Management Education & Support
[2021-03-13] MEDS: DEXMEDETOMIDINE HCL 400 MCG in 0.9 % SODIUM CHLORIDE 96 ML IV SCH (13:41)
--- NOTE | 2021-03-13 14:12 | Electrocardiogram Report ---
Test Reason : Blood Pressure : / mmHG Vent. Rate : 072 BPM Atrial Rate : 153 BPM P-R Int : 000 ms QRS Dur : 106 ms QT Int : 440 ms P-R-T Axes : 000 017 041 degrees QTc Int : 481 ms Atrial fibrillation Prolonged QT Abnormal ECG When compared with ECG of 09-MAR-2021 16:31, Nonspecific T wave abnormality, improved in Inferior leads T wave inversion less evident in Lateral leads Confirmed by Toby Dotson ([id number] on 03/13/2021 2:12:22 PM Referred By: Dionicio Vasquez Confirmed By:Rigo Dotson
--- NOTE | 2021-03-13 14:37 | Hospitalist Progress Note ---
Date of Service March 13, 2021 Assessment & Plan (1) Pneumonia due to 2019 novel coronavirus: (2) Hypoxia: Acute hypoxic respiratory failure secondary to COVID-19 pneumonia Continue dexamethasone Completed remdesivir CRP 5.63-->5.12-->3.89-->4.48-->15-->10 Marked increase in CRP Continue to monitor inflammatory markers Continue oxygen supplementation. Continue high flow nasal oxygen Continue intensive care Oncology Consultant on board Has been diuresing well Hypokalemic this morning. Repleting (3) Atrial fibrillation with RVR: (4) Paroxysmal atrial fibrillation: Patient has history of proximal A. fib. Has been following with cardiology. Had declined anticoagulation in the past and preferred only aspirin. Patient developed A. fib with RVR inpatient Metoprolol and Cardizem were held yesterday due to sinus pauses. Metoprolol resumed at a lower dose of 50 mg twice daily. Will up titrate slowly as needed Continue heparin drip. Industrial Refrigeration Mechanic on board Plan to transition to [facility] eventually for long-term anticoagulation. (5) ISAC (obstructive sleep apnea): Per sewing machine assembler, patient has severe ISAC CPAP HS/PRN (6) Hyperthyroidism: Review of previous thyroid function tests in [facility] showed TSH was 0.81 in June 02, 2020. In view of patient's current clinical condition, A. fib with RVR; thyroid function test was done to assess control of patient's hypothyroidism. This showed hyperthyroidism is currently not controlled. TSH was less than 0.005 and free T4 was 2.30 On 03/10/21, I spoke to [facility] print cutter Dr. Ellis via the transfer center. I discussed the patient with him and findings. He recommended to increase methimazole to 40 mg daily and start cholestyramine 4 g 4 times daily only while inpatient. He also recommended steroid and beta blockade but patient is already on dexamethasone for Covid 19 pneumonia and Lopressor for A. fib with RVR. He also recommended to monitor LFTs as well as WBC while on increased dose of methimazole as well as on discharge. Recommends to continue increased methimazole dose on discharge and patient to follow up with TFT/LFT/WBC check as well as Legal Nurse Consultant follow up in 3 weeks Methimazole 40mg ordered Continue cholestyramine at BID (7) Diabetes: Home antidiabetic regimen on hold. Patient diabetes is poorly controlled A1c is 12.6 Pharmacy on board for glycemic management while inpatient especially on dexamethasone therapy. We will get early childhood special educator and may need insulin when patient is stable for discharge (8) DVT prophylaxis: Heparin drip Admission and Anticipated Discharge Date Admission Date: March 07, 2021 Subjective Patient had some sinus pauses yesterday necessitating discontinuation of his Cardizem and metoprolol He received calcium gluconate and atropine at the time was started on dopamine drip which has been stopped for now Patient seen and examined this morning. Still reports cough, generalized weakness. Denies any shortness of breath at rest. Denies palpitations Denies headache. Reports occasional dizziness with activity. Physical Exam Constitutional: + obese; no acute distress Eyes: PERRL, conjunctivae normal, anicteric sclerae ENMT: external ear and nose normal, oropharynx normal Currently on nasal CPAP Respiratory: normal respiratory effort; no respiratory distress Auscultation: + diminished lung sounds and + crackles (Mild) Cardiovascular: Rate/Rhythm: + tachycardic and + irregularly irregular S1- S2. No pedal edema Gastrointestinal (Abdomen): normal bowel sounds, soft, nontender, no hepatosplenomegaly Musculoskeletal: no cyanosis or clubbing, extremities motor strength 5/5 Neurologic: PERRL, EOMI, accommodation nl, no face palsy, no dysarthria Psychiatric: A+Ox3, euthymic affect Orientation: alert and oriented x 3 Genitourinary: no CVA tenderness Results & Data Results & Data ([facility]) Vital Signs (Past 12 Hours) Vital Signs Temp Pulse Pulse Resp BP Pulse Ox 03/13/21 13:27 139 H 26 H 105/77 94 03/13/21 13:00 136 H 20 92 03/13/21 12:57 135 H 23 106/68 97 03/13/21 12:27 111 H 21 101/63 97 03/13/21 12:00 115 H 24 96 03/13/21 11:58 140 H 19 100/72 93 03/13/21 11:29 124 H 31 H 120/73 92 03/13/21 11:05 137 H 18 90 03/13/21 11:00 133 H 24 90 03/13/21 10:58 130 H 22 127/85 85 L 03/13/21 10:27 121 H 27 H 125/84 96 03/13/21 10:00 127 H 23 98 03/13/21 09:58 120 H 27 H 134/75 97 03/13/21 09:27 113 H 28 H 109/80 93 03/13/21 09:00 131 H 17 83 L 03/13/21 08:57 147 H 17 115/67 90 03/13/21 08:27 109 H 23 122/69 92 03/13/21 08:00 115 H 24 92 03/13/21 07:57 109 H 21 113/92 90 03/13/21 07:27 105 H 24 111/83 88 L 03/13/21 07:20 105 H 20 88 L 03/13/21 07:00 101 H 21 93 03/13/21 06:57 114 H 25 H 130/70 92 03/13/21 06:27 101 H 25 H 116/74 95 03/13/21 06:00 88 22 93 03/13/21 05:27 96 H 20 122/80 94 03/13/21 04:00 37.0 C 89 18 106/55 L 92 03/13/21 03:57 96 H 16 106/55 L 90 03/13/21 03:47 100 H 11 L 97/46 L 95 03/13/21 03:37 72 27 H 94 03/13/21 03:30 85 26 H 95 03/13/21 03:27 84 26 H 88/50 L 99 03/13/21 03:00 80 26 H 99 03/13/21 02:57 93 H 25 H 92/52 L 100 03/13/21 02:30 90 97 Laboratory Results Abnormal lab results 03/12/21 03/12/21 03/12/21 Range/Units 16:27 19:39 19:47 WBC (4.8-10.8) K/uL RBC (4.7-6.1) M/uL Hgb (14.0-18.0) g/dL Hct (42-52) % Plt Count (130-400) K/uL APTT (21.0-31.0) Seconds Sodium 133 L (136-145) mmol/L Potassium (3.5-5.1) mmol/L Chloride 96 L (98-107) mmol/L BUN 21 H (7-18) mg/dl BUN/Creatinine Ratio 25.8 H (10-20) Glucose 312 H* (70-99) mg/dl POC Glucose 294 H 350 H* (70-99) mg/dl C-Reactive Protein (0-0.29) mg/dl Beta-Hydroxybutyric Acd 8.43 H (0.2-2.81) mg/dl 03/13/21 03/13/21 03/13/21 Range/Units 00:01 03:48 04:59 WBC 16.34 H (4.8-10.8) K/uL RBC 4.52 L (4.7-6.1) M/uL Hgb 13.2 L (14.0-18.0) g/dL Hct 37.2 L (42-52) % Plt Count 472 H (130-400) K/uL APTT (21.0-31.0) Seconds Sodium (136-145) mmol/L Potassium (3.5-5.1) mmol/L Chloride (98-107) mmol/L BUN (7-18) mg/dl BUN/Creatinine Ratio (-20) Glucose (70-99) mg/dl POC Glucose 265 H 164 H (70-99) mg/dl C-Reactive Protein (0-0.29) mg/dl Beta-Hydroxybutyric Acd (0.2-2.81) mg/dl 03/13/21 03/13/21 03/13/21 Range/Units 04:59 04:59 08:52 WBC (4.8-10.8) K/uL RBC (4.7-6.1) M/uL Hgb (14.0-18.0) g/dL Hct (42-52) % Plt Count (130-400) K/uL APTT 42.6 H (21.0-31.0) Seconds Sodium (136-145) mmol/L Potassium 3.3 L D (3.5-5.1) mmol/L Chloride (98-107) mmol/L BUN (7-18) mg/dl BUN/Creatinine Ratio 24.7 H (10-20) Glucose 121 H (70-99) mg/dl POC Glucose 142 H (70-99) mg/dl C-Reactive Protein 10.00 H (0-0.29) mg/dl Beta-Hydroxybutyric Acd (0.2-2.81) mg/dl 03/13/21 Range/Units 11:01 WBC (4.8-10.8) K/uL RBC (4.7-6.1) M/uL Hgb (14.0-18.0) g/dL Hct (42-52) % Plt Count (130-400) K/uL APTT (21.0-31.0) Seconds Sodium (136-145) mmol/L Potassium (3.5-5.1) mmol/L Chloride (98-107) mmol/L BUN (7-18) mg/dl BUN/Creatinine Ratio (10-20) Glucose (70-99) mg/dl POC Glucose 137 H (70-99) mg/dl C-Reactive Protein (0-0.29) mg/dl Beta-Hydroxybutyric Acd (0.2-2.81) mg/dl
--- NOTE | 2021-03-13 14:53 | Electrocardiogram Report ---
Test Reason : Blood Pressure : / mmHG Vent. Rate : 138 BPM Atrial Rate : 127 BPM P-R Int : 000 ms QRS Dur : 088 ms QT Int : 312 ms P-R-T Axes : 000 004 055 degrees QTc Int : 472 ms Atrial fibrillation with rapid ventricular response with premature ventricular or aberrantly conducte d complexes Nonspecific T wave abnormality Abnormal ECG When compared with ECG of 12-MAR-2021 19:49, (unconfirmed) Vent. rate has increased BY 66 BPM Nonspecific T wave abnormality, worse in Inferior leads Nonspecific T wave abnormality, worse in Lateral leads Confirmed by Toby Dotson ([id number]) on 03/13/2021 2:53:02 PM Referred By: Dionicio Vasquez Confirmed By:Rigo Dotson
--- NOTE | 2021-03-13 15:55 | Cardiology Progress Note ---
Date of Service March 13, 2021 Assessment & Plan (1) Paroxysmal atrial fibrillation: Persistent high defibrillation since admission. Bradycardia noted yesterday but now trending towards tachycardia. Would recommend titrating metoprolol up further rather than reinstituting diltiazem Continue anticoagulation now with subcutaneous Lovenox (2) Hyperthyroidism: (3) HTN (hypertension): Not currently an issue (4) Pneumonia due to 2019 novel coronavirus: Admission and Anticipated Discharge Date Admission Date: March 07, 2021 Subjective Patient's medications and telemetry reviewed. Not personally examined. History notable for transient bradycardia last evening treated with IV dopamine. No high degree AV block. Precedex was discontinued and diltiazem discontinued. Patient metoprolol resumed this morning . Receiving high flow oxygen to maintain oxygenation Results & Data ([facility]) Vital Signs (Past 12 Hours) Vital Signs Temp Pulse Pulse Resp BP Pulse Ox 03/13/21 15:00 140 H 14 94 03/13/21 14:55 122 H 21 96 03/13/21 14:27 120 H 31 H 119/80 97 03/13/21 14:00 144 H 21 80 L 03/13/21 13:57 132 H 32 H 106/66 94 03/13/21 13:27 139 H 26 H 105/77 94 03/13/21 13:00 136 H 20 92 03/13/21 12:57 135 H 23 106/68 97 03/13/21 12:27 111 H 21 101/63 97 03/13/21 12:00 115 H 24 96 03/13/21 11:58 140 H 19 100/72 93 03/13/21 11:29 124 H 31 H 120/73 92 03/13/21 11:05 137 H 18 90 03/13/21 11:00 133 H 24 90 03/13/21 10:58 130 H 22 127/85 85 L 03/13/21 10:27 121 H 27 H 125/84 96 03/13/21 10:00 127 H 23 98 03/13/21 09:58 120 H 27 H 134/75 97 03/13/21 09:27 113 H 28 H 109/80 93 03/13/21 09:00 131 H 17 83 L 03/13/21 08:57 147 H 17 115/67 90 03/13/21 08:27 109 H 23 122/69 92 03/13/21 08:00 115 H 24 92 03/13/21 07:57 109 H 21 113/92 90 03/13/21 07:27 105 H 24 111/83 88 L 03/13/21 07:20 105 H 20 88 L 03/13/21 07:00 101 H 21 93 03/13/21 06:57 114 H 25 H 130/70 92 03/13/21 06:27 101 H 25 H 116/74 95 03/13/21 06:00 88 22 93 03/13/21 05:27 96 H 20 122/80 94 03/13/21 04:00 37.0 C 89 18 106/55 L 92 03/13/21 03:57 96 H 16 106/55 L 90 Laboratory Results Laboratory Results - last 24 hr 03/12/21 03/12/21 03/12/21 16:27 19:39 19:47 WBC RBC Hgb Hct MCV MCH MCHC RDW Std Deviation RDW Coeff of Francheska Plt Count MPV APTT PTT Ratio Sodium 133 L Potassium 4.0 Chloride 96 L Carbon Dioxide 27 Anion Gap 10.0 BUN 21 H Creatinine 0.81 Est Cr Clr Drug Dosing 169.4 Est GFR ( Amer) 120.1 Est GFR (Non-Af Amer) 103.6 BUN/Creatinine Ratio 25.8 H Glucose 312 H* POC Glucose 294 H 350 H* Calcium 9.2 Phosphorus 4.0 Magnesium 2.3 Troponin I < 0.015 C-Reactive Protein Beta-Hydroxybutyric Acd 8.43 H 03/13/21 03/13/21 03/13/21 00:01 03:48 04:59 WBC 16.34 H RBC 4.52 L Hgb 13.2 L Hct 37.2 L MCV 82.3 MCH 29.2 MCHC 35.5 RDW Std Deviation 40.2 RDW Coeff of Francheska 13.3 Plt Count 472 H MPV 9.8 APTT PTT Ratio Sodium Potassium Chloride Carbon Dioxide Anion Gap BUN Creatinine Est Cr Clr Drug Dosing Est GFR ( Amer) Est GFR (Non-Af Amer) BUN/Creatinine Ratio Glucose POC Glucose 265 H 164 H Calcium Phosphorus Magnesium Troponin I C-Reactive Protein Beta-Hydroxybutyric Acd 03/13/21 03/13/21 03/13/21 04:59 04:59 08:52 WBC RBC Hgb Hct MCV MCH MCHC RDW Std Deviation RDW Coeff of Francheska Plt Count MPV APTT 42.6 H PTT Ratio 1.6 Sodium 138 Potassium 3.3 L D Chloride 101 Carbon Dioxide 31 Anion Gap 6.0 BUN 17 Creatinine 0.68 Est Cr Clr Drug Dosing 201.7 Est GFR ( Amer) 129.1 Est GFR (Non-Af Amer) 111.4 BUN/Creatinine Ratio 24.7 H Glucose 121 H POC Glucose 142 H Calcium 8.6 Phosphorus 4.1 Magnesium 2.4 Troponin I C-Reactive Protein 10.00 H Beta-Hydroxybutyric Acd 03/13/21 11:01 WBC RBC Hgb Hct MCV MCH MCHC RDW Std Deviation RDW Coeff of Francheska Plt Count MPV APTT PTT Ratio Sodium Potassium Chloride Carbon Dioxide Anion Gap BUN Creatinine Est Cr Clr Drug Dosing Est GFR ( Amer) Est GFR (Non-Af Amer) BUN/Creatinine Ratio Glucose POC Glucose 137 H Calcium Phosphorus Magnesium Troponin I C-Reactive Protein Beta-Hydroxybutyric Acd
[2021-03-13] MEDS: METOPROLOL TARTRATE 1 MG/ML VIAL IV PRN (16:11)
[2021-03-13] MEDS: methIMAzole 5 MG TABLET PO SCH (19:53)
[2021-03-13] MEDS: ESCITALOPRAM OXALATE 20 MG TAB PO SCH (19:54)
[2021-03-13] MEDS ORDERED: METOPROLOL TARTRATE 25 MG TAB PO SCH (21:00)
[2021-03-14] MEDS: INSULIN ASPART 100 UNITS/ML 3 ML PEN SC SCH ×3 (03:37→17:31)
[2021-03-14] MEDS: guaiFENesin SUGAR FREE 200 MG/10 ML UDC PO PRN ×3 (03:37→21:12)
[2021-03-14] MEDS: METOPROLOL TARTRATE 1 MG/ML VIAL IV PRN (04:55)
[2021-03-14 05:09] LABS: Basophils # (auto) 0.03 K/uL (0-0.2); Basophils % (auto) 0.2 %; Eosinophils # (auto) 0.04 K/uL (0-0.5); Eosinophils % (auto) 0.2 %; Hemoglobin 14.3 g/dL (14.0-18.0); Immature Granulocytes # (auto) 0.46 K/uL (0.00-0.02); Immature Granulocytes % (auto) 2.5 %; Lymphocytes # (auto) 1.89 K/uL (1.2-3.4); Lymphocytes % (auto) 10.3 %; Mean Corpuscular Hemoglobin 29.2 pg (25-34); Mean Corpuscular Hgb Conc 34.9 g/dL (32-36); Mean Corpuscular Volume 83.8 fL (80-100); Mean Platelet Volume 9.7 fL (7.4-10.4); Monocytes # (auto) 1.85 K/uL (0.11-0.59); Monocytes % (auto) 10.1 %; Neutrophils # (auto) 14.07 K/uL (1.4-6.5); Neutrophils % (auto) 76.7 %; Nucleated RBC # (auto) 0.02 K/uL (0-0); Nucleated RBC % (auto) 0.1 %; Platelet Count 573 K/uL (130-400); RDW Coefficient of Variation 13.3 % (11.5-14.5); RDW Standard Deviation 40.3 fL (36.4-46.3); Red Blood Count 4.89 M/uL (4.7-6.1); White Blood Count 18.34 K/uL (4.8-10.8)
[2021-03-14 05:15] LABS: Partial Thromboplastin Ratio 0.9; Partial Thromboplastin Time 24.8 Seconds (21.0-31.0)
[2021-03-14 06:40] LABS: BUN Creatinine Ratio 28.8 (10-20); C Reactive Protein 4.19 mg/dl (0-0.29); Calcium 8.9 mg/dl (8.5-10.1); Creatinine Clr Calc Pharmacy 217.7 ml/min; Est GFR (African American) 133.2; Est GFR (Non-African American) 114.9; Magnesium 2.4 mg/dl (1.8-2.4); Phosphorus 4.9 mg/dl (2.5-4.9); Potassium 4.2 mmol/L (3.5-5.1)
[2021-03-14] MEDS ORDERED: INSULIN ASPART 100 UNITS/ML 3 ML PEN SC ONE (07:30)
[2021-03-14] MEDS ORDERED: INSULIN ASPART 100 UNITS/ML 3 ML PEN SC SCH ×2 (07:30→21:00)
[2021-03-14] MEDS ORDERED: METOPROLOL TARTRATE 25 MG TAB PO SCH (08:00)
[2021-03-14] MEDS: dexAMETHasone 10 MG in SYRINGE 0 ML IV SCH (08:14)
[2021-03-14] MEDS: PANTOprazole 40 MG TAB PO SCH (08:15)
[2021-03-14] MEDS: ASPIRIN 81 MG ECTAB PO SCH (08:15)
[2021-03-14] MEDS ORDERED: FUROSEMIDE 40 MG in SYRINGE 0 ML IV ONE (08:15)
[2021-03-14] MEDS: ROSUVASTATIN CALCIUM 20 MG TAB PO SCH (08:16)
[2021-03-14] MEDS: INSULIN HUMAN NPH SC SCH (08:49)
[2021-03-14] MEDS ORDERED: METOPROLOL TARTRATE 50 MG TAB PO SCH (09:00)
[2021-03-14] MEDS: ENOXAPARIN INJ 120 MG/0.8 ML SYR SQ SCH ×2 (10:16→22:22)
[2021-03-14] MEDS: CHOLESTYRAMINE LIGHT 4 GM PKT PO SCH ×2 (10:17→22:22)
--- NOTE | 2021-03-14 10:28 | XRay Report ---
XR chest 1V portable HISTORY: Pneumonia. Shortness of breath. COMPARISON: Chest 03/13/2021. FINDINGS: No change in the scattered patchy airspace opacities, left greater than right. This consist ent with a multifocal viral pneumonia. The heart remains mildly enlarged. No pleural effusions. No pn eumothorax. IMPRESSION: No change in the multifocal bilateral airspace opacities consistent with a viral pneumonia. ACT 112: Negative or not required by law. Electronically signed by: Mark Ordaz M.D. 03/14/2021 10:27 AM
--- NOTE | 2021-03-14 10:38 | Critical Care Progress Note ---
Date of Service March 14, 2021 Assessment & Plan (1) Acute respiratory failure with hypoxia and hypercapnia: 50-year-old male who was admitted to the hospital with COVID-19 pneumonia and was shifted to ICU for respiratory distress on 03/11/2021 -- Acute Hypoxic respiratory failure Secondary to multilobar COVID-19 pneumonia Diagnosed 02/28/2021, admitted 03/07/21 Influenza A/B negative 03/07/2021 CRP 15--> 10 --> 4.19 s/p remdesivir. Last dose 03/11/21 Continue with dexamethasone Continue with incentive spirometry and flutter valve O2 supplementation to keep O2 saturation between 88-92% --S/p bradycardia with sinus pauses Appreciated on the evening of 03/12/2021 Resolved Resume rate control medication gradually --A. fib with RVR Rate controlled on metoprolol --Hyperthyroidism TSH undetectable, free T4 elevated Patient's methimazole dose has been increased Patient is already on dexamethasone which will cover for thyroid storm which I doubt is the case --Diabetes type 2 ICU hyperglycemia protocol --Anxiety On escitalopram at home --ISAC On nasal CPAP at home --Prophylaxis VTE: Heparin drip GI: Protonix Lines: Peripheral, Bhatt Diet: Cardiac Plan: In/out: -[phone], urine output [id number] Given a dose of Lasix today. Chest x-ray today is again poor inspiratory effort but seems to be better than before. CRP is trending down. Continue completing the course of dexamethasone. Patient is on 10 L nasal cannula. Can titrate down more to keep the saturation greater than 90. We will increase the metoprolol to 75 mg every 12 hours. Patient is hemodynamically stable to be downgraded to a telemetry floor. LUCY Bhatt prior to downgrade Recommend giving Lasix p.o. on a daily basis starting tomorrow. Please note the above document was generated using voice recognition software. It may contain grammatical, syntax or spelling errors.Any formal questions or c oncerns about the content, text or information contained within the body of this dictation should be directly addressed to the provider for clarification. (2) Atrial fibrillation with RVR: (3) Admitted to intensive care unit: (4) Pneumonia due to 2019 novel coronavirus: Admission and Anticipated Discharge Date Admission Date: March 07, 2021 Subjective Patient seen and examined at bedside. No acute distress. No adverse events overnight. Patient used his nasal CPAP all day yesterday and at night. He was on 10 L nasal cannula saturating 97% at the time of examination. Denies any chest pain, is using incentive spirometry as well as flutter valve. He has cough but is not able to bring much up. Denies any nausea or vomiting. Good appetite. States that he is feeling better compared to before. Review of Systems Review of Systems: All systems reviewed & are unremarkable except as noted in Subjective Physical Exam Physical Exam: Constitutional: No acute distress HEENT: EOMI, PERRLA Respiratory system: Decreased air entry bilaterally, no wheeze, rhonchi, positive crackles bilaterally CVS: S1-S2 positive, no murmurs or gallops irregular Abdomen: Soft, nontender, nondistended, positive bowel sounds x4 Extremities: +2 pulses bilaterally radialis/ dorsalis pedis, no cyanosis, no edema Neuro: Awake alert oriented x3 Psych: Normal mood and affect G/U: Positive Bhatt Skin: no rashes, warm and dry Lymphatic: no cervical or axillary lymphadenopathy Results & Data Results & Data ([facility]) Vital Signs (Past 12 Hours) Vital Signs Temp Pulse Resp BP Pulse Ox 03/14/21 09:00 95 H 22 95 03/14/21 08:58 102 H 23 142/91 H 95 03/14/21 08:28 111 H 15 131/85 91 03/14/21 08:00 36.6 C 121 H 18 91 03/14/21 07:59 119 H 26 H 121/67 89 L 03/14/21 07:28 89 23 127/72 91 03/14/21 07:00 92 H 24 90 03/14/21 06:58 88 22 114/75 89 L 03/14/21 06:29 95 H 26 H 91 03/14/21 06:28 89 21 121/92 91 03/14/21 05:28 108 H 24 127/75 86 L 03/14/21 04:55 142 H 03/14/21 04:28 108 H 22 126/74 90 03/14/21 03:35 87 19 97 03/14/21 03:28 94 H 22 124/75 91 03/14/21 02:28 91 H 22 117/94 91 03/14/21 01:00 95 H 27 H 96 03/14/21 00:28 36.7 C 91 H 21 112/84 96 03/13/21 23:35 94 H 22 94 03/13/21 23:28 95 H 26 H 154/66 H 96 03/14/21 04:38 03/14/21 04:38 Coding Level of Care Code 31531 Subseq Hosp Care Lvl 3 Diagnoses Acute respiratory failure with hypoxia and hypercapnia J96.01; J96.02 Atrial fibrillation with RVR I48.91 Admitted to intensive care unit Z78.9 Pneumonia due to 2019 novel coronavirus U07.1; J12.82
--- NOTE | 2021-03-14 10:39 | Pharmacy Report ---
Pharmacy Glycemic Short Note 2 - Date of Service March 14, 2021 - Glycemic Short BSG Results (Last 24 hours): 03/13/21 03/13/21 03/13/21 11:01 16:22 20:01 Glucose POC Glucose 137 H 179 H 255 H 03/13/21 03/14/21 03/14/21 23:04 03:34 04:38 Glucose 58 L POC Glucose 165 H 75 03/14/21 08:25 Glucose POC Glucose 119 H OUTPATIENT ANTIDIABETIC REGIMEN: * ciarra Loyd * A1c 12.6% ASSESSMENT: 03/14 * Glycemic control has improved over the last 24 hrs. Most BSGs yesterday less than 180 with the exception of HS * 258 units SQ insulin administered over last 24 hrs (170 units as NPH + Lantus) * Patient did experience hypoglycemia overnight, as revealed on chemistry (GLU 58). This can likely be attributed to Novolog correction administered overnight and possibly due to excess basal insulin. Of note, pt's fasting AM BSG was obtained after he had been eating (this BSG was 119). Will lessen basal insulin doses today as well has overnight Novolog correction doses 03/13 * Glycemic control was poor over the last 24 hrs. * 257 units SQ insulin administered over the last 24 hrs, however BSGs did climb as high as 350 yesterday evening and remained above goal until this AM * Fasting BSG 142 this AM after receiving a total of 155 units basal (70 units Lantus + 85 units NPH) yesterday as well as 52 units Novolog correction overnight. * Will escalate NPH AM dose, will continue with yesterday's change to Lantus. * Will also escalate Novolog prandial insulin w/ breakfast 03/12 * Patient was transferred to ICU for increasing oxygen needs and possible need for mechanical ventilation * This AM patient remained on hiflow with dexmedetomidine infusion running * Over the last 24 hrs he has received 181 units SQ insulin. Anticipate this patient will require 220+ units of insulin per day to achieve targets * Fasting hyperglycemia noted on AM labs despite receiving 65 units NPH and 60 units Lantus yesterday. Given needs for respiratory support today, I did back off on the Lantus dose due to concerns pt would not be able to tolerate his diet well today. Despite this, his BSGs continue to rise. Will utilize a higher dose of NPH to offset steroid induced hyperglycemia. Dexamethasone dose has been increased to 10mg IV daily. Will up-titrate Lantus dose. * Novolog will be given 6x daily rather than 4x and both CF and CR doses will be increased PLAN FOR INPATIENT GLYCEMIC CONTROL: * Hold outpatient oral diabetes medications * Basal insulin - decrease * Lantus 0 units this AM, then 35 units Q AM + 20 units Q HS * NPH 60 SQ units Q AM - to cover dexamethasone * Bolus insulin - decrease correctional doses given at HS and overnight * NovoLog per scale ACHS and at 0200 tonight * Goal Range: Low 110 mg/dL - High 140 mg/dL * Correction Factor: 8 mg/dL/unit with meals, however 15mg/dL/unit at HS and overnight * Nutritional / Prandial insulin per carb ratio of 1 unit per 2 grams CHO consumed with breakfast, lunch and dinner; use 1 unit per 5grams CHO consumed at HS PLAN FOR DISCHARGE: * A1c = 12.6 % on 03/08/21 * Goal A1c = below 7 % based on age and comorbidities * A1c is greater than or equal to 10% --> consider triple therapy with metformin + basal insulin + (GLP1-RA OR prandial insulin). May need to continue additional antidiabetic agent based on patient specific factors (efficacy, hypo risk, weight gain/loss, side effects, cost) * Unsure why patient is not on metformin - assuming patient has tried this in the past without success * Recommend continuing Ozempic * Recommend adding basal insulin dosing TBD once steroids tapered (exact formulation TBD based on insurance coverage) * Recommend adding bolus insulin with meals dosing TBD once steroids tapered (exact formulation TBD based on insurance coverage) * Support Patient Self-Management * Healthy Lifestyle (diet, exercise, and smoking cessation) * Disease self-management (SMBG) * Prevention of complications (BP, Lipid goals, Immunizations) * Consider outpatient Diabetes Self-Management Education & Support
[2021-03-14] MEDS ORDERED: INSULIN GLARGINE SOLOSTAR 100 UNITS/ML 3 ML PEN SC ONE (11:30)
[2021-03-14] MEDS ORDERED: INSULIN GLARGINE SOLOSTAR 100 UNITS/ML 3 ML PEN SC SCH ×3 (12:00→21:00)
--- NOTE | 2021-03-14 13:20 | Cardiology Progress Note ---
Date of Service March 14, 2021 Assessment & Plan (1) Atrial fibrillation with RVR: Patient remains in atrial fibrillation with elevated ventricular response rate. Previous bradycardia multiple factorial etiology without recurrence. We will titrate metoprolol to 100 mg twice per day Continue subcu Lovenox for anticoagulation with ultimate plans to switch to Eliquis as clinical course improved (2) Pneumonia due to 2019 novel coronavirus: (3) Acute respiratory failure with hypoxia and hypercapnia: (4) Hyperthyroidism: Admission and Anticipated Discharge Date Admission Date: March 07, 2021 Subjective Patient was seen and personally examined. Chart medications and telemetry reviewed. Patient remains in atrial fibrillation with out further bradycardia arrhythmias. Heart rate trending higher. Pulmonary status appears to be slightly improved with less oxygen demands still very fatigued. Appropriately anticoagulated with subcu Lovenox. Physical Exam Constitutional: + obese; no acute distress Eyes: PERRL, conjunctivae normal, anicteric sclerae ENMT: external ear and nose normal, oropharynx normal Neck: + thick neck Respiratory: Auscultation: + diminished lung sounds Cardiovascular: Rate/Rhythm: + tachycardic and + irregularly irregular Heart Sounds: normal S1 and normal S2 Extremities: no edema Gastrointestinal (Abdomen): normal bowel sounds, soft, nontender, no hepatosplenomegaly Musculoskeletal: Head/Neck/Chest: normocephalic and head atraumatic Extremities: no cyanosis and no clubbing Results & Data ([facility]) Vital Signs (Past 12 Hours) Vital Signs Temp Pulse Pulse Resp BP BP Pulse Ox 03/14/21 10:55 36.6 C 116 H 18 137/87 93 03/14/21 10:28 96 H 22 120/78 94 03/14/21 10:00 108 H 24 94 03/14/21 09:58 116 H 24 125/81 95 03/14/21 09:28 95 H 33 H 133/94 98 03/14/21 09:00 95 H 22 95 03/14/21 08:58 102 H 23 142/91 H 95 03/14/21 08:28 111 H 15 131/85 91 03/14/21 08:00 36.6 C 121 H 18 91 03/14/21 07:59 119 H 26 H 121/67 89 L 03/14/21 07:28 89 23 127/72 91 03/14/21 07:00 92 H 24 90 03/14/21 06:58 88 22 114/75 89 L 03/14/21 06:29 95 H 26 H 91 03/14/21 06:28 89 21 121/92 91 03/14/21 05:28 108 H 24 127/75 86 L 03/14/21 04:55 142 H 03/14/21 04:28 108 H 22 126/74 90 03/14/21 03:35 87 19 97 03/14/21 03:28 94 H 22 124/75 91 03/14/21 02:28 91 H 22 117/94 91 Laboratory Results Laboratory Results - last 24 hr 03/13/21 03/13/21 03/13/21 16:22 20:01 23:04 WBC RBC Hgb Hct MCV MCH MCHC RDW Std Deviation RDW Coeff of Francheska Plt Count MPV Immature Gran % (Auto) Neut % (Auto) Lymph % (Auto) Mitchell % (Auto) Eos % (Auto) Baso % (Auto) Neut # (Auto) Lymph # (Auto) Mitchell # (Auto) Eos # (Auto) Baso # (Auto) Immature Gran # (Auto) Absolute Nucleated RBC Nucleated RBC % (auto) APTT PTT Ratio Sodium Potassium Chloride Carbon Dioxide Anion Gap BUN Creatinine Est Cr Clr Drug Dosing Est GFR ( Amer) Est GFR (Non-Af Amer) BUN/Creatinine Ratio Glucose POC Glucose 179 H 255 H 165 H Calcium Phosphorus Magnesium C-Reactive Protein 03/14/21 03/14/21 03/14/21 03:34 04:38 04:38 WBC 18.34 H RBC 4.89 Hgb 14.3 Hct 41.0 L MCV 83.8 MCH 29.2 MCHC 34.9 RDW Std Deviation 40.3 RDW Coeff of Francheska 13.3 Plt Count 573 H MPV 9.7 Immature Gran % (Auto) 2.5 Neut % (Auto) 76.7 Lymph % (Auto) 10.3 Mitchell % (Auto) 10.1 Eos % (Auto) 0.2 Baso % (Auto) 0.2 Neut # (Auto) 14.07 H Lymph # (Auto) 1.89 Mitchell # (Auto) 1.85 H Eos # (Auto) 0.04 Baso # (Auto) 0.03 Immature Gran # (Auto) 0.46 H Absolute Nucleated RBC 0.02 H Nucleated RBC % (auto) 0.1 APTT PTT Ratio Sodium 138 Potassium 4.2 D Chloride 103 Carbon Dioxide 31 Anion Gap 4.0 BUN 18 Creatinine 0.63 Est Cr Clr Drug Dosing 217.7 Est GFR ( Amer) 133.2 Est GFR (Non-Af Amer) 114.9 BUN/Creatinine Ratio 28.8 H Glucose 58 L POC Glucose 75 Calcium 8.9 Phosphorus 4.9 Magnesium 2.4 C-Reactive Protein 4.19 H 03/14/21 03/14/21 03/14/21 04:38 08:25 11:26 WBC RBC Hgb Hct MCV MCH MCHC RDW Std Deviation RDW Coeff of Francheska Plt Count MPV Immature Gran % (Auto) Neut % (Auto) Lymph % (Auto) Mitchell % (Auto) Eos % (Auto) Baso % (Auto) Neut # (Auto) Lymph # (Auto) Mitchell # (Auto) Eos # (Auto) Baso # (Auto) Immature Gran # (Auto) Absolute Nucleated RBC Nucleated RBC % (auto) APTT 24.8 PTT Ratio 0.9 Sodium Potassium Chloride Carbon Dioxide Anion Gap BUN Creatinine Est Cr Clr Drug Dosing Est GFR ( Amer) Est GFR (Non-Af Amer) BUN/Creatinine Ratio Glucose POC Glucose 119 H 195 H Calcium Phosphorus Magnesium C-Reactive Protein
--- NOTE | 2021-03-14 15:20 | Hospitalist Progress Note ---
Date of Service March 14, 2021 Assessment & Plan (1) Pneumonia due to 2019 novel coronavirus: (2) Hypoxia: Acute hypoxic respiratory failure secondary to COVID-19 pneumonia Influenza A/B negative 03/07/2021 Completed the course of remdesivir Continue Dexamethasone 6mg daily CRP continue trending down CRP 5.63-->5.12-->3.89-->4.48-->15-->10--> 4.19 Continue to monitor inflammatory markers Continue oxygen supplementation to keep O2 saturation between 88-92% Continue chest PT Continue encourage pt to prone Clinically improves (3) Atrial fibrillation with RVR: (4) Paroxysmal atrial fibrillation: Patient has history of paroxysmal A. fib. A. fib with RVR inpatient Has been following with cardiology. Had declined anticoagulation in the past and preferred only aspirin. Metoprolol and Cardizem were held due to sinus pauses. cardiology on board Metoprolol 100mg BID HR improves Continue therapeutic dose Lovenox BID Plan to transition to Eliquis eventually for long-term anticoagulation. Continue monitor in tele (5) ISAC (obstructive sleep apnea): Per cardiology teacher, patient has severe ISAC CPAP HS/PRN (6) Hyperthyroidism: Review of previous thyroid function tests in [facility] showed TSH was 0.81 in June 02, 2020. In view of patient's current clinical condition, A. fib with RVR; thyroid function test was done to assess control of patient's hypothyroidism. This showed hyperthyroidism is currently not controlled. TSH was less than 0.005 and free T4 was 2.30 Previous hospitalist team discussed the on 03/10/21 with [facility] insulation worker Dr. Ellis via the transfer center. Recommended to increase methimazole to 40 mg daily and cholestyramine 4 g 4 times daily only while inpatient. He also recommended steroid and beta blockade but patient is already on dexamethasone for Covid 19 pneumonia and Lopressor for A. fib with RVR. He also recommended to monitor LFTs as well as WBC while on increased dose of methimazole as well as on discharge. Recommends to continue increased methimazole dose on discharge and patient to follow up with TFT/LFT/WBC check as well as [employer] follow up in 3 weeks Continue Methimazole 40mg and cholestyramine at BID (7) Diabetes: Home antidiabetic regimen on hold. Patient diabetes is poorly controlled A1c is 12.6 Pharmacy on board for glycemic management while inpatient especially on dexamethasone therapy. Continue lantus and Novolog sliding scale Continue monitor BS whparvez on steroid (8) DVT prophylaxis: On Lovenox sub BID Disposition Pt was transferred out of the ICU Admission and Anticipated Discharge Date Admission Date: March 07, 2021 Subjective Pt was seen and examined for follow of SOB due to COVID 19 Sitting in chair with no distress Pt said that his breathing continue to improve He continues to require oxygen supplement Denies any chest pain, palpitation, dizziness and fever Review of Systems Review of Systems: All systems reviewed & are unremarkable except as noted in Subjective Physical Exam Physical Exam: Constitutional: + obese; no acute distress Eyes: PERRL, conjunctivae normal, anicteric sclerae ENMT: external ear and nose normal, oropharynx normal Currently on nasal CPAP Respiratory: normal respiratory effort; no respiratory distress Auscultation: + diminished lung sounds and + crackles (Mild) Cardiovascular: + tachycardic and + irregularly irregular Gastrointestinal: normal bowel sounds, soft, nontender, no hepatosplenomegaly Musculoskeletal: no cyanosis or clubbing, extremities motor strength 5/5 Neurologic: PERRL, EOMI, accommodation nl, no face palsy, no dysarthria Psychiatric: A+Ox3, euthymic affect Orientation: alert and oriented x 3 Genitourinary: no CVA tenderness Results & Data Results & Data ([facility]) Vital Signs (Past 12 Hours) Vital Signs Temp Pulse Pulse Resp BP BP Pulse Ox 03/14/21 10:55 36.6 C 116 H 18 137/87 93 03/14/21 10:28 96 H 22 120/78 94 03/14/21 10:00 108 H 24 94 03/14/21 09:58 116 H 24 125/81 95 03/14/21 09:28 95 H 33 H 133/94 98 03/14/21 09:00 95 H 22 95 03/14/21 08:58 102 H 23 142/91 H 95 03/14/21 08:28 111 H 15 131/85 91 03/14/21 08:00 36.6 C 121 H 18 91 03/14/21 07:59 119 H 26 H 121/67 89 L 03/14/21 07:28 89 23 127/72 91 03/14/21 07:00 92 H 24 90 03/14/21 06:58 88 22 114/75 89 L 03/14/21 06:29 95 H 26 H 91 03/14/21 06:28 89 21 121/92 91 03/14/21 05:28 108 H 24 127/75 86 L 03/14/21 04:55 142 H 03/14/21 04:28 108 H 22 126/74 90 03/14/21 03:35 87 19 97 03/14/21 03:28 94 H 22 124/75 91
[2021-03-14] MEDS: METOPROLOL TARTRATE 100 MG TAB PO SCH (17:40)
[2021-03-14] MEDS: ESCITALOPRAM OXALATE 20 MG TAB PO SCH (21:07)
[2021-03-14] MEDS: methIMAzole 5 MG TABLET PO SCH (21:07)
[2021-03-15] MEDS ORDERED: INSULIN ASPART 100 UNITS/ML 3 ML PEN SC SCH (02:00)
[2021-03-15] MEDS: guaiFENesin SUGAR FREE 200 MG/10 ML UDC PO PRN ×2 (03:14→08:08)
[2021-03-15 06:34] LABS: Hematocrit (blood only) 40.7 % (42-52); Hemoglobin 14.8 g/dL (14.0-18.0); Mean Corpuscular Hemoglobin 29.7 pg (25-34); Mean Corpuscular Hgb Conc 36.4 g/dL (32-36); Mean Corpuscular Volume 81.7 fL (80-100); Mean Platelet Volume 9.8 fL (7.4-10.4); Platelet Count 525 K/uL (130-400); RDW Coefficient of Variation 13.2 % (11.5-14.5); RDW Standard Deviation 39.7 fL (36.4-46.3); Red Blood Count 4.98 M/uL (4.7-6.1); White Blood Count 14.43 K/uL (4.8-10.8)
[2021-03-15 06:50] LABS: Partial Thromboplastin Time 25.5 Seconds (21.0-31.0)
[2021-03-15 07:04] LABS: Albumin Level 2.4 gm/dl (3.4-5.0); BUN Creatinine Ratio 25.4 (10-20); C Reactive Protein 1.43 mg/dl (0-0.29); Calcium 8.8 mg/dl (8.5-10.1); Creatinine Clr Calc Pharmacy 219.4 ml/min; Est GFR (African American) 133.2; Est GFR (Non-African American) 114.9; Potassium 4.1 mmol/L (3.5-5.1)
[2021-03-15 07:09] LABS: Albumin Globulin Ratio 0.6 (0.9-2); Bilirubin,Total 0.8 mg/dl (0.2-1); Ferritin 1213.9 ng/ml (8-388); Globulin 4.1 gm/dl (2.5-4.0); Total Protein 6.5 gm/dl (6.4-8.2)
[2021-03-15] MEDS ORDERED: INSULIN ASPART 100 UNITS/ML 3 ML PEN SC ONE (07:30)
[2021-03-15] MEDS: BENZONATATE 100 MG CAPSULE PO PRN (08:09)
[2021-03-15] MEDS: INSULIN ASPART 100 UNITS/ML 3 ML PEN SC SCH ×3 (08:19→17:14)
[2021-03-15] MEDS ORDERED: INSULIN GLARGINE SOLOSTAR 100 UNITS/ML 3 ML PEN SC SCH (09:00)
[2021-03-15] MEDS: dexAMETHasone 10 MG in SYRINGE 0 ML IV SCH (09:20)
[2021-03-15] MEDS: INSULIN HUMAN NPH SC SCH (09:24)
[2021-03-15] MEDS: PANTOprazole 40 MG TAB PO SCH (09:25)
[2021-03-15] MEDS: ROSUVASTATIN CALCIUM 20 MG TAB PO SCH (09:25)
[2021-03-15] MEDS: METOPROLOL TARTRATE 100 MG TAB PO SCH (09:25)
[2021-03-15] MEDS: ASPIRIN 81 MG ECTAB PO SCH (09:25)
[2021-03-15] MEDS: ENOXAPARIN INJ 120 MG/0.8 ML SYR SQ SCH (09:26)
[2021-03-15] MEDS: CHOLESTYRAMINE LIGHT 4 GM PKT PO SCH (09:26)
--- NOTE | 2021-03-15 10:25 | Pharmacy Report ---
Pharmacy Glycemic Short Note 2 - Date of Service March 15, 2021 - Glycemic Short BSG Results (Last 24 hours): 03/14/21 03/14/21 03/14/21 11:26 17:34 20:15 Glucose POC Glucose 195 H 168 H 177 H 03/15/21 03/15/21 03/15/21 02:00 05:43 07:48 Glucose 81 POC Glucose 114 H 82 OUTPATIENT ANTIDIABETIC REGIMEN: * ciarra Loyd * A1c 12.6% ASSESSMENT: 03/15 * BSGs well controlled over last 24 hrs and no repeat hypoglycemia noted following yesterday's adjustments * 166 units SQ insulin given over last 24 hrs while tolerating a diet * Fasting BSG 82 this AM with 100 units basal on board (NPH + Lantus) - will scale doses back further * Will adjust HS and overnight Novolog coverage again to lessen these doses * Tomorrow will be the final day of dexamethasone IV if not extended 03/14 * Glycemic control has improved over the last 24 hrs. Most BSGs yesterday less than 180 with the exception of HS * 258 units SQ insulin administered over last 24 hrs (170 units as NPH + Lantus) * Patient did experience hypoglycemia overnight, as revealed on chemistry (GLU 58). This can likely be attributed to Novolog correction administered overnight and possibly due to excess basal insulin. Of note, pt's fasting AM BSG was obtained after he had been eating (this BSG was 119). Will lessen basal insulin doses today as well has overnight Novolog correction doses 03/13 * Glycemic control was poor over the last 24 hrs. * 257 units SQ insulin administered over the last 24 hrs, however BSGs did climb as high as 350 yesterday evening and remained above goal until this AM * Fasting BSG 142 this AM after receiving a total of 155 units basal (70 units Lantus + 85 units NPH) yesterday as well as 52 units Novolog correction overnight. * Will escalate NPH AM dose, will continue with yesterday's change to Lantus. * Will also escalate Novolog prandial insulin w/ breakfast 03/12 * Patient was transferred to ICU for increasing oxygen needs and possible need for mechanical ventilation * This AM patient remained on hiflow with dexmedetomidine infusion running * Over the last 24 hrs he has received 181 units SQ insulin. Anticipate this patient will require 220+ units of insulin per day to achieve targets * Fasting hyperglycemia noted on AM labs despite receiving 65 units NPH and 60 units Lantus yesterday. Given needs for respiratory support today, I did back off on the Lantus dose due to concerns pt would not be able to tolerate his diet well today. Despite this, his BSGs continue to rise. Will utilize a higher dose of NPH to offset steroid induced hyperglycemia. Dexamethasone dose has been increased to 10mg IV daily. Will up-titrate Lantus dose. * Novolog will be given 6x daily rather than 4x and both CF and CR doses will be increased PLAN FOR INPATIENT GLYCEMIC CONTROL: * Hold outpatient oral diabetes medications * Basal insulin - decrease * Lantus 35 units Q AM (no additional dose at HS) * NPH 60 SQ units Q AM - to cover dexamethasone * Bolus insulin - decrease correctional doses given at HS and overnight * NovoLog per scale ACHS and at 0200 tonight * Goal Range: Low 110 mg/dL - High 140 mg/dL AC, however 110-160 HS and overnight * Correction Factor: 8 mg/dL/unit with meals, however 15mg/dL/unit at HS and overnight * Nutritional / Prandial insulin per carb ratio of 1 unit per 2 grams CHO consumed with breakfast, lunch and dinner; use 1 unit per 5grams CHO consumed at HS PLAN FOR DISCHARGE: * A1c = 12.6 % on 03/08/21 * Goal A1c = below 7 % based on age and comorbidities * A1c is greater than or equal to 10% --> consider triple therapy with metformin + basal insulin + (GLP1-RA OR prandial insulin). May need to continue additional antidiabetic agent based on patient specific factors (efficacy, hypo risk, weight gain/loss, side effects, cost) * Unsure why patient is not on metformin - assuming patient has tried this in the past without success * Recommend continuing Ozempic * Recommend adding basal insulin dosing TBD once steroids tapered (exact formulation TBD based on insurance coverage) * Recommend adding bolus insulin with meals dosing TBD once steroids tapered (exact formulation TBD based on insurance coverage) * Support Patient Self-Management * Healthy Lifestyle (diet, exercise, and smoking cessation) * Disease self-management (SMBG) * Prevention of complications (BP, Lipid goals, Immunizations) * Consider outpatient Diabetes Self-Management Education & Support
--- NOTE | 2021-03-15 11:50 | Pulmonology Progress Note ---
Date of Service March 15, 2021 Assessment & Plan (1) Acute respiratory failure with hypoxia and hypercapnia: 50-year-old male who was admitted to the hospital with COVID-19 pneumonia and was shifted to ICU for respiratory distress on 03/11/2021 -- Acute Hypoxic respiratory failure Secondary to multilobar COVID-19 pneumonia Diagnosed 02/28/2021, admitted 03/07/21 Influenza A/B negative 03/07/2021 CRP 15--> 10 --> 4.19 s/p remdesivir. Last dose 03/11/21 Continue with dexamethasone Continue with incentive spirometry and flutter valve O2 supplementation to keep O2 saturation between 88-92% --Anxiety On escitalopram at home --ISAC On nasal CPAP at home Plan: In/out: -753, urine output 100 Recommend continuing p.o. Lasix Importance of CPAP explained to the patient Patient has made improvement when it comes to his oxygen requirement. His heart rate is still not optimally controlled. Will defer the management to primary team Continue with oxygen supplementation to keep oxygen between 88-92%. No further recommendations from pulmonary perspective. Please call directly with any questions. Please note the above document was generated using voice recognition software. It may contain grammatical, syntax or spelling errors.Any formal questions or concerns about the content, text or information contained within the body of this dictation should be directly addressed to the provider for clarification. (2) Atrial fibrillation with RVR: (3) Admitted to intensive care unit: (4) Pneumonia due to 2019 novel coronavirus: Admission and Anticipated Discharge Date Admission Date: March 07, 2021 Subjective Patient seen and examined at bedside. No acute distress, no adverse events overnight. Patient did not use CPAP overnight. On asking why he did not he said that it burgos his nose. He has been using his home CPAP mask. I did explain him the importance of using his CPAP to help him get out of the hospital as soon as possible. Has been using incentive spirometry. Has been using flutter valve. Bringing up clear phlegm. Denies any chest pain. No nausea or vomiting. Patient during the encounter said multiple times that he wants to go home. He was saturating 94% on 3 L nasal cannula at rest Review of Systems Review of Systems: All systems reviewed & are unremarkable except as noted in Subjective Physical Exam Physical Exam: Constitutional: No acute distress HEENT: EOMI, PERRLA Respiratory system: Decreased air entry bilaterally, no wheeze, rhonchi, positive crackles bilaterally CVS: S1-S2 positive, no murmurs or gallops irregular Abdomen: Soft, nontender, nondistended, positive bowel sounds x4, obese Extremities: +2 pulses bilaterally radialis/ dorsalis pedis, no cyanosis, no edema Neuro: Awake alert oriented x3 Psych: Normal mood and affect G/U: No Bhatt Skin: no rashes, warm and dry Lymphatic: no cervical or axillary lymphadenopathy Results & Data Results & Data ([facility]) Vital Signs (Past 12 Hours) Vital Signs Temp Pulse Pulse Resp BP Pulse Ox 03/15/21 11:41 36.5 C 86 18 147/66 H 91 03/15/21 07:50 36.6 C 90 19 127/84 93 03/15/21 03:53 36.9 C 115 H 22 129/74 89 L 03/14/21 23:58 91 H 03/15/21 05:43 03/15/21 05:43 PG Care Time/CCT Total # of Minutes Spent Total Time Spent with Patient: Total time spent is greater than 50% in coordination of care (as documented) at patient's floor/unit and/or counseling patient: Coding Level of Care Code 82279 Subseq Hosp Care Lvl 3 Diagnoses Acute respiratory failure with hypoxia and hypercapnia J96.01; J96.02 Atrial fibrillation with RVR I48.91 Admitted to intensive care unit Z78.9 Pneumonia due to 2019 novel coronavirus U07.1; J12.82
[2021-03-15] MEDS ORDERED: METOPROLOL TARTRATE 50 MG TAB PO ONE (13:20)
--- NOTE | 2021-03-15 13:24 | Cardiology Progress Note ---
Date of Service March 15, 2021 Assessment & Plan (1) Atrial fibrillation with RVR: Patient's rates are coming under better control as pulmonary status improves. Still elevated. We will increase metoprolol tartrate 250 mg a.m. 100 mg p.m. continue to avoid diltiazem given past bradycardia arrhythmias likely multifactorial etiology. Will require oral anticoagulation on discharge (2) HTN (hypertension): (3) ISAC (obstructive sleep apnea): (4) Pneumonia due to 2019 novel coronavirus: Admission and Anticipated Discharge Date Admission Date: March 07, 2021 Subjective Patient chart and telemetry reviewed. Not personally examined care discussed with caregivers Pulmonary status improving with less O2 demands. Heart rate still variable but coming under better control Results & Data ([facility]) Vital Signs (Past 12 Hours) Vital Signs Temp Pulse Resp BP Pulse Ox 03/15/21 11:41 36.5 C 86 18 147/66 H 91 03/15/21 07:50 36.6 C 90 19 127/84 93 03/15/21 03:53 36.9 C 115 H 22 129/74 89 L
--- NOTE | 2021-03-15 15:15 | Hospitalist Progress Note ---
Date of Service March 15, 2021 Assessment & Plan (1) Pneumonia due to 2019 novel coronavirus: (2) Hypoxia: Acute hypoxic respiratory failure secondary to COVID-19 pneumonia Influenza A/B negative 03/07/2021 Completed the course of remdesivir On Dexamethasone 6mg daily CRP continue trending down CRP 5.63-->5.12-->3.89-->4.48-->15-->10--> 4.19 ->1.4 today Continue to monitor inflammatory markers Saturated well on RA Continue encourage pt to prone 2 step done today and pt did not require any oxygen supplement Pt does not want to spend anymore time in the hospital and demanded to be discharge today Clinically improves (3) Atrial fibrillation with RVR: (4) Paroxysmal atrial fibrillation: Patient has history of paroxysmal A. fib. A. fib with RVR inpatient Has been following with cardiology. Had declined anticoagulation in the past and preferred only aspirin. Metoprolol and Cardizem were held due to sinus pauses. cardiology on board case discussed with cardiology that recommended to increase metoprolol to 150 mg am and 100mg HS On therapeutic dose Lovenox BID, but will transition to Eliquis long-term anticoagulation on discharge Pt does not want to stay in the hospital to titrate med that we can control his HR Pt is not too happy with the changes cardiology made to his meds Pt understands by demanding to be discharged there are risk that HR can get worst and lead to arrhythmia, heart failure and even Follow up with cardiology in 2 to 4 weeks (5) ISAC (obstructive sleep apnea): Per stock patcher, patient has severe ISAC Continue CPAP HS/PRN (6) Hyperthyroidism: Review of previous thyroid function tests in [facility] showed TSH was 0.81 in June 02, 2020. In view of patient's current clinical condition, A. fib with RVR; thyroid function test was done to assess control of patient's hypothyroidism. This showed hyperthyroidism is currently not controlled. TSH was less than 0.005 and free T4 was 2.30 Previous hospitalist team discussed the on 03/10/21 with [facility] spanish medical interpreter Dr. Ellis via the transfer center. Recommended to increase methimazole to 40 mg daily and cholestyramine 4 g 4 times daily only while inpatient. He also recommended steroid and beta blockade but patient is already on dexamethasone for Covid 19 pneumonia and Lopressor for A. fib with RVR. He also recommended to monitor LFTs as well as WBC while on increased dose of methimazole as well as on discharge. Recommends to continue increased methimazole dose on discharge and patient to follow up with TFT/LFT/WBC check as well as Multiple Sclerosis Nurse follow up in 3 weeks Continue Methimazole 40mg and cholestyramine at BID (while in the hospital ) (7) Diabetes: Home antidiabetic regimen on hold. Patient diabetes is poorly controlled A1c is 12.6 Pharmacy on board for glycemic management while inpatient especially on dexamethasone therapy. On lantus and Novolog sliding scale during hospital course Case discussed with pharmacy that recommended to add Lantus 30units daily and titrate if needed Continue Januvia and Ozempic for now Continue monitor blood sugar closely and bring your BS log at your next appointment with your provider (8) DVT prophylaxis: On Lovenox sub BID Disposition Discharge home today (pt does not want to stay longer in the hospital ) Admission and Anticipated Discharge Date Admission Date: March 07, 2021 Subjective Pt was seen and examined for follow up SOB due to COVID 19 Pt said that he is feeling much better He said that he took his oxygen off since this morning He said that his breathing is fine He is getting frustrated and upset because he wants to go home He said that he would leave today and asked numerous times to be discharged today he said that his HR would not get better and not happy because of the changes in his metoprolol to control the heart rate He said that he would not spend the night in the hospital and would leave today He has 2 step exercise done today and did not require any oxygen supplement Denies any chest pain, palpitation, dizziness and SOB Review of Systems Review of Systems: All systems reviewed & are unremarkable except as noted in Subjective Physical Exam Physical Exam: Constitutional: + obese; no acute distress Eyes: PERRL, conjunctivae normal, anicteric sclerae ENMT: external ear and nose normal, oropharynx normal Currently on nasal CPAP Respiratory: normal respiratory effort; no respiratory distress Auscultation: + diminished lung sounds and + crackles (Mild) Cardiovascular: + tachycardic and + irregularly irregular Gastrointestinal: normal bowel sounds, soft, nontender, no hepatosplenomegaly Musculoskeletal: no cyanosis or clubbing, extremities motor strength 5/5 Neurologic: PERRL, EOMI, accommodation nl, no face palsy, no dysarthria Psychiatric: A+Ox3, euthymic affect Orientation: alert and oriented x 3 Genitourinary: no CVA tenderness Results & Data Results & Data ([facility]) Vital Signs (Past 12 Hours) Vital Signs Temp Pulse Pulse Pulse Pulse Resp Resp 03/15/21 13:41 84 118 H 61 18 03/15/21 11:41 36.5 C 86 18 03/15/21 07:50 36.6 C 90 19 03/15/21 03:53 36.9 C 115 H 22 Resp Resp BP Pulse Ox Pulse Ox Pulse Ox Pulse Ox 03/15/21 13:41 18 18 91 94 92 03/15/21 11:41 147/66 H 91 03/15/21 07:50 127/84 93 03/15/21 03:53 129/74 89 L
[2021-03-15] MEDS ORDERED: METOPROLOL TARTRATE 100 MG TAB PO SCH (21:00)
[2021-03-16] MEDS ORDERED: METOPROLOL TARTRATE 100 MG TAB PO SCH (09:00)
--- NOTE | 2021-03-19 09:14 | Discharge Summary ---
Date of Service March 15, 2021 Admission HPI Per Admitting Provider HISTORY OF PRESENT ILLNESS: This is a 50-year-old male with past medical history significant for type 2 diabetes, hyperthyroidism, hypotestosteronemia, hyperlipidemia, obstructive sleep apnea, atrial fibrillation, hypertension, obesity, osteoarthritis of left knee, history of low back pain, generalized anxiety disorder, chronic fatigue, lives with his , presents with shortness of breath. The patient had COVID symptoms since last Friday and was diagnosed with COVID last . He was having fevers, body aches, shortness of breath, coughing, and some chest pain with cough, poor appetite, some sore throat and he came to the ER and he had a temperature spike of 38.6 and his oxygenation was 89% on room air, requiring 3 liters oxygen. Currently resting comfortably and hemodynamically stable. No nausea, no abdominal pain, somewhat constipated because he is not eating much. Admission Exam Per Admitting Provider GENERAL: The patient is obese, not in acute distress. VITAL SIGNS: T-max 38.6, pulse 67, respiratory rate 22, blood pressure 145/74, oxygen 93% on 3 liters. HEENT: Pupils equal, round, and reactive to light. Oral mucosa moist. NECK: No JVD, no neck masses seen. CARDIOVASCULAR: S1, S2 heard. Regular rate and rhythm. No murmur, no gallop. RESPIRATORY SYSTEM: Normal AP diameter. No accessory muscle use. no crackles. ABDOMEN: Soft, bowel sounds present, nontender, no distention. CENTRAL NERVOUS SYSTEM: Cranial nerves II-XII grossly intact. Nonfocal. EXTREMITIES: No edema, no erythema. Principal Diagnosis Pneumonia due to 2019 novel coronavirus: Hypoxia: Acute hypoxic respiratory failure secondary to COVID-19 pneumonia Atrial fibrillation with rapid ventricular rate Paroxysmal atrial fibrillation: ISAC (obstructive sleep apnea): Hyperthyroidism: Uncontrolled Diabetes type 2: Discharge Exam Constitutional: + obese; no acute distress Eyes: PERRL, conjunctivae normal, anicteric sclerae ENMT: external ear and nose normal, oropharynx normal Currently on nasal CPAP Respiratory: normal respiratory effort; no respiratory distress Auscultation: + diminished lung sounds and + crackles (Mild) Cardiovascular: + tachycardic and + irregularly irregular Gastrointestinal: normal bowel sounds, soft, nontender, no hepatosplenomegaly Musculoskeletal: no cyanosis or clubbing, extremities motor strength 5/5 Neurologic: PERRL, EOMI, accommodation nl, no face palsy, no dysarthria Psychiatric: A+Ox3, euthymic affect Orientation: alert and oriented x 3 Genitourinary: no CVA tenderness Discharge Data Allergies Allergy/AdvReac Type Severity Reaction Status Date / Time testosterone AdvReac Severe "messes" Unverified 02/25/20 13:40 with AFIB Consultations 03/07/21 20:00 ED Decision to Admit Stat 03/09/21 08:00 Consult Cardiology Routine 03/11/21 16:10 Consult Manager Mall Stat Ordered Studies 03/07/21 16:44 CT angio chest PE protocol Stat XR chest 1V portable HISTORY: Pneumonia. Shortness of breath. COMPARISON: Chest 03/13/2021. FINDINGS: No change in the scattered patchy airspace opacities, left greater than right. This consistent with a multifocal viral pneumonia. The heart remains mildly enlarged. No pleural effusions. No pneumothorax. IMPRESSION: No change in the multifocal bilateral airspace opacities consistent with a viral pneumonia. ACT 112: Negative or not required by law. Electronically signed by: Mark Ordaz M.D. 03/14/2021 10:27 AM Dictated: 03/14/21 1025Transcribed: 03/14/21 1025 XR chest 1V portable CLINICAL HISTORY: f/u COMPARISON STUDY: Chest CT March 07, 2021. Chest radiograph March 12, 2021. FINDINGS: Lung volumes are mildly diminished. There is no pneumothorax. There may be a trace left pleural effusion. Multifocal bilateral airspace opacities have slightly progressed. Cardiomegaly is unchanged. Mediastinal widening is unchanged. IMPRESSION: Subtle progression of multifocal bilateral airspace opacities consistent with an infectious process. ACT 112: Negative or not required by law. Electronically signed by: Simon Swan M.D. 03/13/2021 8:43 AM Dictated: 03/13/21 0840Transcribed: 03/13/21 0840 SINGLE VIEW CHEST CLINICAL HISTORY: Hypoxia. FINDINGS: An AP, portable, semierect chest radiograph is compared to study performed earlier the same day 03/12/2021 and correlated with chest CT dated 03/07/2021. The examination is degraded by portable technique and patient rotation. The heart is enlarged. Multifocal airspace consolidation is similar to previous.. No large pleural effusion or pneumothorax is seen. The bony thorax is grossly intact. Degenerative change is noted in the left shoulder. IMPRESSION: 1. Multifocal airspace consolidation has not significantly changed as compared to today's earlier study. 2. Cardiomegaly. ACT 112: Negative or not required by law. Electronically signed by: Konstantin Dover M.D. 03/13/2021 7:57 AM Dictated: 03/13/21 0755Transcribed: 03/13/21 0755 XR chest 1V portable HISTORY: Shortness of breath. Follow-up. COMPARISON: Chest 03/11/2021. FINDINGS: No pneumothorax. No pleural effusions. The cardiac silhouette remains mildly enlarged. There are low lung volumes. Bilateral mid to lower lung zone airspace opacities are again noted. This appears of slightly progressed on the left. IMPRESSION: Slight progression of the bilateral mid to lower lung zone airspace opacities consistent with a pneumonia. ACT 112: Negative or not required by law. Electronically signed by: Mark Ordaz M.D. 03/12/2021 8:38 AM Dictated: 03/12/21 0837Transcribed: 03/12/21 0837 XR chest 1V portable CLINICAL HISTORY: Assess pneumonia COMPARISON STUDY: 03/07/2021 FINDINGS: The heart remains enlarged. There are persistent bilateral pulmonary airspace opacities, equivocally progressive on the right.. There are low lung volumes. No pneumothorax is visualized. There are no large pleural effusions.[ IMPRESSION: 1. Stable cardiomegaly 2. Persistent bilateral pulmonary airspace opacities consistent with a multifocal pneumonia 3. Low lung volumes ACT 112: Negative or not required by law. Electronically signed by: Uday Bustillos M.D. 03/11/2021 8:48 AM Dictated: 03/11/21 0847Transcribed: 03/11/21 0847 XR chest 1V portable CLINICAL HISTORY: Sepsis. COMPARISON STUDY: Chest radiograph September 09, 2015. FINDINGS: Lung volumes are diminished. There is no pneumothorax or pleural effusion. Moderate multifocal bilateral airspace opacities are noted. Cardiac silhouette is accentuated on this exam. IMPRESSION: 1. Moderate bilateral airspace opacities suggestive of an infectious process such as viral pneumonia. 2. Low lung volumes. ACT 112: Negative or not required by law. Electronically signed by: Simon Swan M.D. 03/07/2021 5:34 PM Dictated: 03/07/211732Transcribed: 03/07/211732 CT ANGIOGRAPHY OF THE CHEST, PULMONARY EMBOLUS PROTOCOL CLINICAL HISTORY: Shortness of breath. Covid. COMPARISON STUDY: Chest radiograph August 10, 2015 and March 07, 2021. TECHNIQUE: Following IV administration of 119 mL of Optiray-320, helical axial images of the chest were obtained utilizing the pulmonary embolus protocol. Maximal intensity projections and sagittal and coronal reformats were viewed on an independent 3D workstation. IV contrast was administered without complication. Automated exposure control was utilized for the study. A dose lowering technique was utilized adhering to the principles of ALARA. CT DOSE: 963.14 mGy.cm FINDINGS: No pulmonary emboli are identified. This exam is mildly compromised by suboptimal vascular opacification. Mild to moderate cardiomegaly is noted. There is no pericardial effusion. No thoracic aortic dissection is noted. There are multiple mildly enlarged mediastinal and bilateral hilar lymph nodes. Index subcarinal lymph node measures 1.3 cm in short axis diameter. Index right hilar node measures 1.4 cm. Subpleural opacities favor atelectasis. There is no pneumothorax or pleural effusion. Multifocal irregular airspace opacities within the lungs are present. Hepatic steatosis is noted. There is probable splenomegaly. IMPRESSION: 1. No pulmonary emboli identified although segmental and subsegmental pulmonary arteries suboptimally assessed on this exam. 2. Moderate multifocal airspace opacities within lungs consistent with viral pneumonia. 3. Enlarged mediastinal and bilateral hilar lymph nodes which are likely reactive. 4. Mild to moderate cardiomegaly. 5. Hepatic steatosis. Mild splenomegaly. ACT 112: Negative or not required by law. Electronically signed by: Simon Swan M.D. 03/07/2021 7:53 PM Dictated: 03/07/211945Transcribed: 03/07/211945 Diabetes Follow up Diabetes Follow-up Needed for HgbA1c >9% Hospital Course (1) Pneumonia due to 2019 novel coronavirus: (2) Hypoxia: Acute hypoxic respiratory failure secondary to COVID-19 pneumonia Influenza A/B negative 03/07/2021 Completed the course of remdesivir On Dexamethasone 6mg daily CRP continue trending down CRP 5.63-->5.12-->3.89-->4.48-->15-->10--> 4.19 ->1.4 today Continue to monitor inflammatory markers Saturated well on RA Continue encourage pt to prone 2 step done today and pt did not require any oxygen supplement Pt does not want to spend anymore time in the hospital and demanded to be discharge today Clinically improves (3) Atrial fibrillation with RVR: (4) Paroxysmal atrial fibrillation: Patient has history of paroxysmal A. fib. A. fib with RVR inpatient Has been following with cardiology. Had declined anticoagulation in the past and preferred only aspirin. Metoprolol and Cardizem were held due to sinus pauses. 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 In view of patient's current clinical condition, A. fib with RVR; thyroid function test was done to assess control of patient's hypothyroidism. This showed hyperthyroidism is currently not controlled. TSH was less than 0.005 and free T4 was 2.30 Previous hospitalist team discussed the on 03/10/21 [address] [place] slab depiler operator Dr. Ellis via the transfer center. Recommended to increase methimazole to 40 mg daily and cholestyramine 4 g 4 times daily only while inpatient. He also recommended steroid and beta blockade but patient is already on dexamethasone for Covid 19 pneumonia and Lopressor for A. fib with RVR. He also recommended to monitor LFTs as well as WBC while on increased dose of methimazole as well as on discharge. Recommends to continue increased methimazole dose on discharge and patient to follow up with TFT/LFT/WBC check as well as Portfolio Administrator follow up in 3 weeks Continue Methimazole 40mg and cholestyramine at BID (while in the hospital ) (7) Diabetes: Home antidiabetic regimen on hold. Patient diabetes is poorly controlled A1c is 12.6 Pharmacy on board for glycemic management while inpatient especially on dexamethasone therapy. On lantus and Novolog sliding scale during hospital course Case discussed with pharmacy that recommended to add Lantus 30units daily and titrate if needed Continue Januvia and Ozempic for now Continue monitor blood sugar closely and bring your BS log at your next appointment with your provider (8) DVT prophylaxis: On Lovenox sub BID Disposition Discharge home today (pt does not want to stay longer in the hospital ) Total Time Total Time Spent Total Time Spent (In Minutes): 35 minutes Total Time Includes: Examination of the Patient, Discharge Planning, Medication Reconciliation, Communication With Other Providers and Other Discharge Plan Discharge Items Patient Disposition: Home - Self-Care Reason For Visit: SOB Discharge Diagnosis: Pneumonia due to 2019 novel coronavirus: Hypoxia: Acute hypoxic respiratory failure secondary to COVID-19 pneumonia Atrial fibrillation with rapid ventricular rate Paroxysmal atrial fibrillation: ISAC (obstructive sleep apnea): Hyperthyroidism: Uncontrolled Diabetes type 2: Activity: Resume your previous activity Non-emergency contact: Primary Care Provider and Diet Aide Call non-emergency contact if: you have any medication questions and your symptoms worsen Follow-up/Referrals: Mariann Rosenthal PA-C [Primary Care Provider] - (Date & Time 03/21/2021 11:00 AM Provider Dionicio Vasquez MD Department [facility] PLEASE NOTE THAT THIS IS A TELEHEALTH APPOINTMENT. PLEASE FOLLOW THE INST RUCTIONS PROVIDED IN YOUR EMAIL. IF YOU HAVE ANY QUESTIONS REGARDING THIS APPOINTMENT, PLEASE CALL ) Lynne Goldstein CRNP [Nurse Practitioner] - (Date & Time 04/11/2021 9:30 AM Provider LINH Dykes Department Cardiology, [facility] ) Diet: Carb Consistent or DM2 Addtl Attending Provider Instructions: Follow up with your primary care provider Dr. Vasquez on 03/21/2021 at 11:00 AM (PLEASE NOTE THAT THIS IS A TELEHEALTH APPOINTMENT) Follow up with cardiology Lynne MELTON on 04/11/2021 at 9:30 AM at the Cardio logy, [facility] Follow up with endocrinology to manage your thyroid Check thyroid function in 4 weeks Check Liver enzymes and CBC in 1 week since your methimazole increased to 40mg HS Metoprolol increased to 150mg in the morning and 100mg at night Continue to use your CPAP machine at night and as needed Continue monitor your blood sugar and bring your blood sugar log at your next appointment with your provider. (your provider will continue to titrate your insulin if needed) Follow a health diabetes diet and limited concentrated sweet intake Continue blood thinner with Eliquis twice a day to prevent any clot formation and stroke Monitor for any abnormal bleeding while on Eliquis Your next dose of Eliquis is due tonight Continue to wear mask and practice social distance Continue flutter valve and incentive spirometry Medication Instructions: Eliquis Your condition is typically treated with an anticoagulant. Anticoagulants will thin your blood to help prevent new clots. You should take her medication exactly as directed. Never skip a dose. Never take a double dose. If you miss a dose, take it as soon as you remember. Avoid NSAIDs (Motrin, Aleve, Naproxen, Ibuprofen, Advil, Meloxicam,..) due to risks of bleeding Call your Primary Care doctor if you experience any of the following: Swelling or Pain in your leg Sudden, continuous pain deep in a muscle Pain that worsens when you are active or when you stand still for a long time Chest Pain Sudden Shortness of Breath Rapid or pounding heart beat Fainting Dizziness Cough with blood or bloody sputum Sweating more than normal Bruises Heavy or uncontrolled bleeding Blood in your urine, stool or vomit Black or tarry stools Home Isolation COVID-19 Instructions The following information about Home Isolation is from the CDC Website: https://www.cdc.gov/coronavirus/2019-ncov/hcp/vblkelfa-cuihwyt-gzemlr.html Stay home except to get medical care People who are mildly ill with COVID-19 are able to isolate at home during their illness. You should restrict activities outside your home, except for getting medical care. Do not go to work, school, or public areas. Avoid using public transportation, ride-sharing, or taxis. Separate yourself from other people and animals in your home People: As much as possible, you should stay in a specific room and away from other people in your home. Also, you should use a separate bathroom, if available. Animals: You should restrict contact with pets and other animals while you are sick with COVID-19, just like you would around other people. Although there have not been reports of pets or other animals becoming sick with COVID-19, it is still recommended that people sick with COVID-19 limit contact with animals until more information is known about the virus. When possible, have another member of your household care for your animals while you are sick. If you are sick with COVID-19, avoid contact with your pet, including petting, snuggling, being kissed or licked, and sharing food. If you must care for your pet or be around animals while you are sick, wash your hands before and after you interact with pets and wear a face mask. Call ahead before visiting your doctor If you have a medical appointment, call the healthcare provider and tell them that you have or may have COVID-19. This will help the healthcare providers office take steps to keep other people from getting infected or exposed. Wear a face mask You should wear a face mask when you are around other people (e.g., sharing a room or vehicle) or pets and before you enter a healthcare providers office. If you are not able to wear a face mask (for example, because it causes trouble breathing), then people who live with you should not stay in the same room with you, or they should wear a face mask if they enter your room. Cover your coughs and sneezes Cover your mouth and nose with a tissue when you cough or sneeze. Throw used tissues in a lined trash can. Immediately wash your hands with soap and water for at least 20 seconds or, if soap and water are not available, clean your hands with an alcohol-based hand jewelry appraiser that contains at least 60% alcohol. Clean your hands often Wash your hands often with soap and water for at least 20 seconds, especially after blowing your nose, coughing, or sneezing; going to the bathroom; and before eating or preparing food. If soap and water are not readily available, use an alcohol-based hand jewelry appraiser with at least 60% alcohol, covering all surfaces of your hands and rubbing them together until they feel dry. Soap and water are the best option if hands are visibly dirty. Avoid touching your eyes, nose, and mouth with unwashed hands. Avoid sharing personal household items You should not share dishes, drinking glasses, cups, eating utensils, towels, or bedding with other people or pets in your home. After using these items, they should be washed thoroughly with soap and water. Clean all high-touch surfaces everyday High touch surfaces include counters, tabletops, doorknobs, bathroom fixtures, toilets, phones, keyboards, tablets, and bedside tables. Also, clean any surfaces that may have blood, stool, or body fluids on them. Use a household cleaning spray or wipe, according to the label instructions. Labels contain instructions for safe and effective use of the cleaning product including precautions you should take when applying the product, such as wearing gloves and making sure you have good ventilation during use of the product. Monitor your symptoms Seek prompt medical attention if your illness is worsening (e.g., difficulty breathing).Beforeseeking care, call your healthcare provider and tell them that you have, or are being evaluated for, COVID-19. Put on a face mask before you enter the facility. These steps will help the healthcare providers office to keep other people in the office or waiting room from getting infected or exposed. Ask your healthcare provider to call the local or state health department. Persons who are placed under active monitoring or facilitated self- monitoring should follow instructions provided by their local health department or occupational health professionals, as appropriate. When working with your local health department check their available hours. If you have a medical emergency and need to call 911, notify the dispatch personnel that you have, or are being evaluated for COVID-19. If possible, put o n a face mask before emergency medical services arrive. Discontinuing home isolation Patients with confirmed COVID-19 should remain under home isolation precautions until the risk of secondary transmission to others is thought to be low. The decision to discontinue home isolation precautions should be made on a [id number] basis, in consultation with healthcare providers and state and local health departments. Coronavirus disease 2019 (COVID-19) is a virus that causes a respiratory illness. It is caused by a coronavirus called 2019 novel coronavirus (2019- nCoV). There are many types of coronavirus. Coronaviruses are a very common cause of bronchitis. They may sometimes cause lung infection(pneumonia). Symptoms can range from mild to severe respiratory illness. These viruses are also foundin some animals. COVID-19 was first found in people in [facility], in late 2019. In 2020, several cases of COVID-19 have been confirmed in the [place] Public health officials are working to find the source. How the virus spreads is not yet fully known. It may be spread through droplets of fluid that a person coughs or sneezes into the air. It may be spread if you touch a surface with virus on it, such as a handle or object, and then touch your mouth. What are the symptoms of COVID-19? Some people have no symptoms or mild symptoms. Symptoms may appear 2 to 14 days after contact with the virus. Symptoms can include: Fever Coughing Trouble breathing What are possible complications from COVID-19? In many cases, this virus can cause infection (pneumonia) in both lungs. In some cases, this can cause . How is COVID-19 diagnosed? Your healthcare provider will ask about your symptoms. He or she will also ask about your recent travel and contact with sick people. Testing for the virus is only done through the CDC. If yourhealthcare provider thinks you may have COVID- 19, he or she will work with your local health department and the CDC on testing. Follow all instructions from your healthcare provider. COVID-19 is diagnosed by: Nasal and throat swab. A cotton-tipped swab is wiped inside your nose or throat. This is done to check for viruses in your nasal mucus. Sputum culture. A small sample of mucus coughed from your lungs (sputum) is collected if you have a cough. It is checked for the virus. How is COVID-19 treated? There is currently no medicine to treat the virus. Treatment is done to help your body while it fights the virus. This is known as supportive care. Supportive care may include: Pain medicine. These include acetaminophen and ibuprofen. They are used to help ease pain and reduce fever. Bed rest. This helps your body fight the illness. For severe illness, you may need to stay in the hospital. Care during severe illness may include: IV (intravenous) fluids.These are given through a vein to help keep your body hydrated. Oxygen. Supplemental oxygen or ventilation with a breathing machine (ventilator) may be given. This is done to keep enough oxygen in your body. Are you at risk for COVID-19? If youve been to a place where people have been sick with this virus, you are at risk for infection. You are at risk if you: Recently traveled to an affected area Had contact with a sick person who recently traveled to this area Had contact with a person who was diagnosed with COVID-19 How can COVID-19 be prevented? There is no vaccine yet. The best prevention is to not have contact with the virus. The CDC advises that people should not travel to areas where there are COVID-19 outbreaks right now for any reason that is not urgent. To help prevent spreading the infection, wash your hands often, or use an alcohol-basedhand jewelry appraiser. If you are in an area with COVID-19: Wash your hands often. Or use an alcohol-based hand jewelry appraiser often. Only touch your eyes, nose, or mouth with clean hands. Dont have contact with people who are sick. Follow local instructions about being in public. For example, you may be told to not use public transport for a period of time. Stay away from markets that have live or animals. Wash your hands after touching any animals. Don't touch animals that may be sick. Dont share eating or drinking tools with sick people. Dont kiss someone who is sick. Clean surfaces often with disinfectant. If you were in an area with COVID-19 in the last 14 days: Call your healthcare provider. He or she can talk with local health staff to see what action may be needed. Follow all instructions from your provider. Take your temperature every morning and evening for at least 14 days. This is to check for fever. Keep a record of the readings. Keep watch for symptoms of the virus. Tell your provider right away if you have symptoms. If you were in an area with COVID-19 and have a fever or other symptoms: Dont panic. Keep in mind that other illnesses can cause similar symptoms. Stay away from work, school, and public places. Limit physical contact with family members. Don't kiss anyone or share eating or drinking utensils. Clean surfaces you touch with disinfectant. This is to help prevent the virus from spreading. Call your healthcare provider. Explain that you have been exposed to COVID-19 and have symptoms. Do this before going to any hospital. Wait for instructions. Keep in mind that healthcare staff may wear protective equipment such as masks, gowns, gloves, and eye protection. You may be put in a separate room. This is to prevent the possible virus from spreading. Tell the healthcare staff about recent travel. This includes local travel on public transport. Staff may need to find other people you have been in contact with. Follow all instructions the healthcare staff give you. If you have been diagnosed with COVID-19 Follow all instructions from your healthcare provider. Dont leave your home, except to get medical care. Call your healthcare providers office before going. They can prepare and give you instructions. This will help prevent the virus from spreading. Dont go to work, school, or public areas. Dont use public transport or taxis. Stay away from other people in your home. Have them wear face masks around you. Dont share household items or food. Wear a face mask if you can. This includes at home or in a medical facility. Cover your face with a tissue when you cough or sneeze. Throw the tissue away. Wash your hands. Wash your hands often. Caregivers should: Follow all instructions from healthcare staff. Wear a face mask and protective clothing as advised. Wash hands often. Keep track of the sick persons symptoms. Clean surfaces, fabrics, and laundry thoroughly. Keep other people away from the sick person. When to call your healthcare provider Call your healthcare provider: If youve recently traveled and have symptoms If you have been diagnosed with COVID-19 and your symptoms are worse To learn more To find out more about COVID-19, visit the CDC website at www.cdc.gov/coronavirus/2019-ncov/index.html. [employer]. [address] [place] [address]. All rights reserved. This information is not intended as a substitute for professional medical care. Always follow your healthcare professional's instructions. This information has been adapted from [employer] Pending Studies at Discharge: No Stand-Alone Forms: My Videdressing, Smoking Cessation Medications and DC Order Prescriptions: New metoprolol tartrate 100 mg Tablet 100 mg PO HS 30 Days Qty: 30 RF: 0 metoprolol tartrate 100 mg Tablet 150 mg PO QAM 30 Days Qty: 45 RF: 0 aspirin 81 mg Tablet,Delayed Release (Dr/Ec) 81 mg PO DAILY 30 Days Qty: 30 RF: 0 Lantus Solostar U-100 Insulin 100 unit/mL (3 mL) Insulin Pen 30 unit SC QAM 30 Days Qty: 9 RF: 0 Eliquis 5 mg tablet 5 mg PO BID 30 Days Qty: 60 RF: 0 (DME) pen needle, diabetic [1st Tier Unifine Pentips] 32 gauge x 5/32" needle See Rx Instructions .ROUTE .MEDSUPPLY Qty: 50 RF: 0 guaifenesin 200 mg tablet 200 mg PO Q6H PRN (Reason: cough) Qty: 30 RF: 0 Continued metoprolol tartrate 50 mg tablet 50 mg PO USEASDIRECTD RF: 0 escitalopram oxalate 20 mg tablet 20 mg PO HS RF: 0 Januvia 100 mg tablet 100 mg PO QAM RF: 0 Ozempic 0.25 mg or 0.5 mg(2 mg/1.5 mL) pen injector 0.25 mg SUBCUT WK RF: 0 Crestor 40 mg 40 mg PO DAILY RF: 0 Changed methimazole 10 mg tablet 40 mg PO HS 30 Days Qty: 120 RF: 0 Discharge Orders: Discharge Order (Routine); Ordered 03/15/21 Ordered By: Arnoldo Portillo Admission Data Admit Date/Time: 03/07/21 21:44 Attending Provider: Arnoldo Portillo Admit Provider: Roldan Perrin Primary Care Provider: Mariann Rosenthal Other Providers: Erin Vidal I. ; Roldan Perrin ; Galdino Parsons ; Jeffrey Langford ; Geoffrey Garvey ; Ajith Mccoy ; Calderon Hartley ; Dionicio Nagel ; Caryn Nails ; Viola Wallace ; Lynne Goldstein ; Fermin Chavarria ; Lenard Payne Other Interventions: Discharge Summary Assessment (RN) Last Done: 03/15/21 16:54
== END 2021-03-15 17:45 | disposition home or self-care (01) | DRG 177 ==
LOC: ED 16:07 → SUATTDRO 21:44 → 2S 21:44 → 2E 03-11 16:41 → 1E 03-11 17:52 → 2E 03-14 11:05